=== PATIENT | female | born 1935 | race Caucasian/White ===

== ENCOUNTER → 2016-12-18 | Outpatient (CLI) | payer OTHER ==
[~2016-12-18] MED LIST: ASPIRIN81 MG PO; BETA PO; CARTIA XT120 MG PO; CIPROFLOXACIN500 MG PO; COLACE100 MG PO; DILTIAZEM 24HR360 MG PO; ELIQUIS5 M1 PO; LIPITOR10 MG PO; LISINOPRIL HCTZ1 TA1; LISINOPRIL20 MG PO; LOPRESSOR25 MG PO; LOPRESSOR50 M1 PO; LOPRESSOR50 MG PO; LYRICA200 M1 PO; LYRICA75 MG PO; MULTI PO; NORVASC10 MG PO; NOVOLIN 701 UNIT/0.0; NOVOLOG MI100 UNIT/2 SQ; PRAVACHOL20 MG PO; PRILOSEC20 M1 PO; SYNTHROID0.15 MG PO; SYNTHROID25 MCG PO; TENORMIN25 MG PO; ZOFRAN4 MG PO
== END | disposition home or self-care (01) ==
LOC: SDC 09:30 → CARD 09:30
DX: I08.3 Combined rheumatic disorders of mitral, aortic and tricuspid valves (principal); I48.91 Unspecified atrial fibrillation; I10 Essential (primary) hypertension

== ENCOUNTER → 2017-05-22 | Outpatient (CLI) | payer OTHER | END | disposition home or self-care (01) | LOC: RAD 14:24 | DX: M16.12 Unilateral primary osteoarthritis, left hip (principal) ==

== ENCOUNTER → 2017-07-31 | Outpatient (CLI) | payer OTHER | END | disposition home or self-care (01) | LOC: MRI 14:10 | DX: S72.8X2A Other fracture of left femur, initial encounter for closed fracture (principal); M70.62 Trochanteric bursitis, left hip; X58.XXXA Exposure to other specified factors, initial encounter; Y92.89 Other specified places as the place of occurrence of the external cause; Y93.89 Activity, other specified; Y99.8 Other external cause status ==

== ENCOUNTER 2018-06-08 10:03 | Emergency (ER) | payer OTHER ==
[~2018-06-08] VITALS: Wt 101.6 kg
[2018-06-08 10:15] VITALS: BP 138/80
[2018-06-08] MEDS ORDERED: NORCO 5-325 TA1 EACH PO (12:39)
== END 2018-06-08 13:35 | disposition home or self-care (01) ==
LOC: ED 10:03
DX: M16.12 Unilateral primary osteoarthritis, left hip (principal); E11.9 Type 2 diabetes mellitus without complications; I10 Essential (primary) hypertension; E03.9 Hypothyroidism, unspecified; I48.91 Unspecified atrial fibrillation; E66.9 Obesity, unspecified; Z88.8 Allergy status to other drugs, medicaments and biological substances; Z88.6 Allergy status to analgesic agent; Z88.1 Allergy status to other antibiotic agents; Z79.899 Other long term (current) drug therapy; Z79.84 Long term (current) use of oral hypoglycemic drugs; Z79.82 Long term (current) use of aspirin; Z90.710 Acquired absence of both cervix and uterus

== ENCOUNTER 2018-06-11 16:58 | Inpatient (IN) | payer OTHER ==
[~2018-06-11] VITALS: Ht 154.9 cm; Wt 104.4 kg
--- NOTE | ~2018-06-11 | PR ---
[place], [place] PROGRESS NOTE NAME: JOHAN REID UNIT #: [id number] ROOM: 509 DOCTOR: KEO SERVIN MD BIRTHDATE: [birth year] DOS: SUBJECTIVE: The patient is about the same, does not have any complaints. OBJECTIVE: VITAL SIGNS: Graphic trend shows blood pressure of 150/78, pulse of 90, respirations 18, temperature 97.8. LUNGS: Clear. HEART: Regular. ABDOMEN: Obese, soft. EXTREMITIES: Without any edema. ASSESSMENT AND PLAN: 1. Fall with possibility of left hip fracture, awaiting open reduction and internal fixation today. 2. Hypokalemia. Supplementation was given. No labs available this morning. 3. Benign hypertension, controlled. 4. Adult failure to thrive. We will arrange for transfer to rehab when the patient is stable. KEO SERVIN MD CM:PNTRANS [phone] KEO SERVIN MD 06/16/18 1456 interface
--- NOTE | ~2018-06-11 | WRIGHTHP ---
[place], [place] PATIENT HISTORY AND PHYSICAL EXAM NAME: JOHAN REID [facility] #: [id number] UNIT #: [id number] ROOM: 509 DOCTOR: KEO SERVIN MD BIRTHDATE: [birth year] DOS: 06/11/2018 HISTORY OF PRESENT ILLNESS: An 83-year-old who comes in with complaints of pain in the left hip area. The patient states about a year ago she had a similar problem after a fall. She had seen Dr. Bowen and was advised conservative regimen. She apparently did have a small fracture which she told would heal on its own and she has been doing fairly well after that and about 2 weeks ago, she fell again and has developed increasing pain, so she decided to present to the Dr. Bowen's office again. At this time, he was unable to figure out why she was having increased pain, sent to the Emergency Room where routine studies, which showed that she again had a hip fracture on a CT of the left hip, so the patient was admitted for further evaluation and possible surgery. She denies having any complaints other than left hip pain, especially when she moves. She denies having any chest pains or palpitations. Does not have any fever or chills. Does not have any abdominal pain, nausea, and emesis. PAST MEDICAL HISTORY: Significant for 1. History of fall about a year ago with possibility of a fracture. 2. Chronic atrial fibrillation, on anticoagulation. 3. Benign hypertension. 4. Mixed hyperlipidemia. 5. Type 2 diabetes mellitus, insulin-dependent. 6. Chronic kidney disease. 7. Coronary artery disease of the [place] coronaries. 8. Chronic low back pain. MEDICATIONS: That she is on are insulin 70/30, Eliquis 5 b.i.d., amlodipine 10 daily, atenolol 25 daily, Colace 100 daily, [place] 5 q. 8, levothyroxine 125 mcg daily, lisinopril 20 daily, omeprazole 20 daily, Pravachol 20 daily, Lyrica 200 b.i.d., NovoLog 70/30, 35 units subQ daily. SOCIAL HISTORY: Nonsmoker, does not use any alcohol. Lives at home alone. PHYSICAL EXAMINATION: GENERAL: She is awake and alert and oriented. VITAL SIGNS: Graphic trend shows that she is afebrile, pressure is 142/70, pulse of 76, respirations 18. LUNGS: Diminished breath sounds, clear. HEART: Regular. ABDOMEN: Obese. EXTREMITIES: Left hip range of motion was checked. There is some minimal discomfort in the hip area. ASSESSMENT AND PLAN: 1. The patient who presents with pain in the left hip area following a fracture. Left hip x-ray showed a possibility of a femoral neck fracture. Dr. Bishop has been consulted. The patient will be kept n.p.o. for possibility of a surgery. 2. Chronic atrial fibrillation, on long-term use of anticoagulants. Eliquis on hold, Lovenox to be started. [place], [place] PATIENT HISTORY AND PHYSICAL EXAM NAME: JOHAN REID UNIT #: [id number] ROOM: [facility] DOCTOR: KEO SERVIN MD BIRTHDATE: [birth year] 3. Benign hypertension, controlled. 4. Type 2 diabetes mellitus, insulin-dependent, reordered diet and coverage scale. KEO SERVIN MD CM:HISPHYS:PATIENT HISTORY AND PHYSICAL EXAMINATION [id number] KEO SERVIN MD 06/12/18 1117 interface
--- NOTE | ~2018-06-11 | PR ---
[place], [place] PROGRESS NOTE NAME: JOHAN REID UNIT #: [id number] ROOM: 509 DOCTOR: KEO SERVIN MD BIRTHDATE: [birth year] DOS: SUBJECTIVE: The patient is not having any complaints other than pain. Case management has started precertification for her rehabilitation. OBJECTIVE: VITAL SIGNS: Pressure is 137/70, pulse of 70, respirations 18, temperature 98.5. LUNGS: Clear. HEART: Regular. ABDOMEN: Soft. EXTREMITIES: Without any edema. ASSESSMENT AND PLAN: 1. Left hip fracture, status post open reduction and internal fixation. 2. Hypokalemia is corrected. 3. Adult failure to thrive, awaiting placement. KEO SERVIN MD CM:PNTRANS 8 10 KEO SERVIN MD 06/18/182111 interface
--- NOTE | ~2018-06-11 | PR ---
[place], [place] PROGRESS NOTE NAME: JOHAN REID UNIT #: [id number] ROOM: 509 DOCTOR: KEO SERVIN MD BIRTHDATE: [birth year] DOS: SUBJECTIVE: The patient is not having any complaints today other than her pain. OBJECTIVE: VITAL SIGNS: Graphic trend shows a pressure 143/71, pulse of 74, respirations 19, temperature 98.1. LUNGS: Clear. HEART: Regular. ABDOMEN: Obese, soft. EXTREMITIES: No edema. SCDs bilaterally. ASSESSMENT AND PLAN: 1. The patient with fall with hip fracture status post open reduction and internal fixation. 2. Adult failure to thrive. For placement to [facility], beds available and the plan is just to transfer her today. 3. Venous Doppler done, did not show any evidence of deep venous thrombosis. KEO SERVIN MD CM:PNTRANS [phone] 0 KEO SERVIN MD 06/20/18120 interface
--- NOTE | ~2018-06-11 | PR ---
[place], [place] PROGRESS NOTE NAME: JOHAN REID UNIT #: [id number] ROOM: 509 DOCTOR: KEO SERVIN MD BIRTHDATE: [birth year] DOS: 06/17/2018 SUBJECTIVE: The patient underwent surgery yesterday, had ORIF performed. The patient is not having any complaints other than pain. OBJECTIVE: VITAL SIGNS: Graphic trend shows pressure 129/78, pulse of 88, respirations 17, temperature 98.2. LUNGS: Clear. HEART: Regular. ABDOMEN: Obese. EXTREMITIES: Without any edema. Left hip site intact. ASSESSMENT AND PLAN: 1. Subcapital femoral neck fracture of the left hip, status post open reduction internal fixation. The patient is stable. 2. Hypokalemia. Supplementation is ordered. 3. Chronic atrial fibrillation, restart Eliquis. 4. Adult failure to thrive, to go to [facility] went out to [facility]. KEO SERVIN MD CM:PNTRANS [phone] KEO SERVIN MD 06/18/18 0120 interface
--- NOTE | ~2018-06-11 | DS ---
[place], [place] DISCHARGE SUMMARY NAME: JOHAN REID UNIT #: [id number] ROOM: 509 DOCTOR: KEO SERVIN MD BIRTHDATE: [birth year] DOS: 06/19/2018 DIAGNOSES: 1. Fall with hip pain with hip fracture status post open reduction and internal fixation. 2. Benign hypertension. 3. Chronic back pain. 4. Chronic atrial fibrillation, on long-term use of anticoagulants. 5. Multiple falls with ambulatory dysfunction. 6. Mixed hyperlipidemia. 7. Type 2 diabetes mellitus, insulin-dependent. 8. Chronic kidney disease. 9. Coronary artery disease of [place] coronaries. DISCHARGE MEDICATIONS: [place] 5/325 mg q. 8 hours p.r.n., amlodipine 10 daily, omeprazole 20 daily, Eliquis 5 mg b.i.d., levothyroxine 125 mcg daily, lisinopril 20 daily, Lyrica 200 b.i.d., Pravachol 20 daily, Colace 100 daily, NovoLog 70/30 75 units daily, atenolol 25 daily, amlodipine 10 daily. HOSPITAL COURSE: This patient is 83 years old, had a fall at home, developed hip pain, was seen by her home health specialist, Dr. Bowen who sent her to the Emergency Room. The patient had a similar fall a year ago and was thought to have a slight bone bruise of the left hip and was treated conservatively. This time, CT showed a possibility of hip fracture. An MRI did not show an actual hip fracture, but there was a lot of edema around the site. Dr. Bishop was consulted. She took the patient for surgery because of continued pain in her left hip site, the possibility of instability was raised. ORIF was performed and after that the patient has remained stable. She is not having any new complaints. The plan is to discharge her to [facility] for continued therapy. DISCHARGE MEDICATIONS: See above. DIET: ADA 1800. PT/OT to be consulted. Blood sugars to be checked daily. [place], [place] DISCHARGE SUMMARY NAME: JOHAN REID UNIT #: [id number] ROOM: 509 DOCTOR: KEO SERVIN MD BIRTHDATE: [birth year] KEO SERVIN MD CM:DEBBIE 9 5 KEO SERVIN MD 07/06/18 0930 interface
--- NOTE | ~2018-06-11 | PR ---
[place], [place] PROGRESS NOTE NAME: [facility]ID [id number] UNIT #: [id number] ROOM: 509 DOCTOR: KEO SERVIN MD BIRTHDATE: [birth year] DOS: 06/15/2018 SUBJECTIVE: The patient has left hip pain, but otherwise does not have any complaints. OBJECTIVE: VITAL SIGNS: Blood pressure is 124/79, pulse is 78, respirations 20, and temperature 97.4. LUNGS: Clear. HEART: Irregular heart rate in the 70s. ABDOMEN: Obese. EXTREMITIES: Without any edema. Some tenderness in the left hip area. LABORATORY DATA: BMP: Glucose 168, BUN 16, creatinine 0.73. Sodium 137, potassium 3.2, chloride 101, bicarbonate 28. WBC count is 9.3, hemoglobin 12.0, and hematocrit 37.5. ASSESSMENT AND PLAN: 1. The patient is status post fall with left hip pain. Dr. Bishop has advised to hold the Eliquis in the possibility of surgery is being addressed this morning. 2. Chronic atrial fibrillation on Eliquis, which is on hold. 3. Benign hypertension, controlled. 4. Hypokalemia. Supplementation was ordered. 5. Adult failure to thrive. We will hold off on transfer to [facility] because we are still finalizing her treatment plan here. KEO SERVIN MD CM:PNTRANS 0 KEO SERVIN MD 06/15/1841 interface
--- NOTE | ~2018-06-11 | O ---
[place], [place] OPERATIVE NOTE NAME: [facility]ID [id number] UNIT #: [id number] ROOM: 509 DOCTOR: SILVIA BISHOP DO BIRTHDATE: [birth year] DOS: 06/16/2018 PREOPERATIVE DIAGNOSIS: Left hip subcapital fracture. POSTOPERATIVE DIAGNOSIS: Left hip subcapital fracture. OPERATIVE PROCEDURE: Left hip in situ fixation of subcapital fracture with 3 cannulated screws. SURGEON: Silvia Bishop DO. ASSOCIATE PROFESSOR OF KINESIOLOGY: Nicolle. ANESTHESIA: ELISA Mariee, Spinal. INDICATIONS: The patient is an 83-year-old female with a history of a stress fracture of the left hip, treated elsewhere approximately 1 year ago. The patient had a fall several weeks ago and has had progressive pain at the left hip with internal and external rotation, decreased ability to ambulate. Radiographic studies were inconclusive. The risks and benefits of the procedure were explained to the patient preoperatively. Preoperative labs and x-rays were obtained as well as medical optimization. PROCEDURE IN DETAIL: The left hip was marked in the holding room. The patient was brought to the operative suite. Spinal anesthetic was performed by Anesthesia. The patient was placed supine on the fracture table. The right lower extremity was flexed and externally rotated. Left lower extremity was extended without significant traction. C-arm was utilized to evaluate the fracture site. The patient received Ancef 2 grams IV piggyback. The timeout was performed. The left lower extremity was prepped and draped in the usual orthopedic fashion. C-arm was utilized to identify the starting point just distal to the greater trochanter. The area was injected with Marcaine 0.5% with epinephrine. Incision was made sharply with a scalpel. Subcutaneous tissue was spread down to the level of the fascia. Fascia was divided bluntly with a hemostat. Three partially threaded K-wires were placed from lateral to medial through the femoral neck and into the head of the femur. Positioning was evaluated under C-arm in multiple planes. When this was found to be adequate, the pins were measured. They were overdrilled with the cannulated drill. A single partially threaded 7.3 mm screw was placed over each K-wire and advanced under C-arm guidance manually. When the positioning was found to be adequate by C-arm in multiple planes, the partially threaded K-wires were removed. The area was again evaluated by C-arm. The wound was copiously irrigated with normal saline. The wound was closed in a layered fashion with 0 Vicryl, followed by 2-0 Vicryl, followed by skin brian. The incision was injected with Marcaine 0.5% with epinephrine. The dressing was applied, Xeroform, 4 x 4s and a Tegaderm dressing. The patient was returned to supine position. The patient was taken to the recovery room in satisfactory condition. [place], [place] OPERATIVE NOTE NAME: JOHAN REID UNIT #: [id number] ROOM: [facility] DOCTOR: SILVIA BISHOP DO BIRTHDATE: [birth year] Sponge and needle count correct. ESTIMATED BLOOD LOSS: 5 mL. SPECIMENS: None. DRAINS: None. PACKING: None. COMPLICATIONS: None. FINDINGS: Left subcapital femoral neck fracture. SILVIA BISHOP DO CM:OPRECORD:OPERATIVE NOTE [phone] SILVIA BISHOP DO 06/16/181934 interface
--- NOTE | ~2018-06-11 | PR ---
[place], [place] PROGRESS NOTE NAME: JOHAN REID UNIT #: [id number] ROOM: 509 DOCTOR: KEO SERVIN MD BIRTHDATE: [birth year] DOS: 06/14/2018 SUBJECTIVE: The patient is resting comfortably, does not have any new complaints. She is slightly constipated. OBJECTIVE: VITAL SIGNS: Blood pressure is 153/81, pulse of 88, respirations 18, temperature 98.1. LUNGS: Clear. HEART: Irregular. ABDOMEN: Obese. EXTREMITIES: No evidence of DVT. LABORATORY DATA: Blood sugar was 110. ASSESSMENT AND PLAN: 1. Fall with ambulatory dysfunction, adult failure to thrive, awaiting placement. 2. Old left hip fracture. Conservative regimen with pain control achieved. 3. Type 2 diabetes mellitus, controlled. The plan is hopefully to discharge her to home tomorrow. We will discontinue catheter. KEO SERVIN MD CM:PNTRANS [phone] KEO SERVIN MD 06/14/18 1509 interface
--- NOTE | ~2018-06-11 | PR ---
[place], [place] PROGRESS NOTE [id number] #: [id number] ROOM: 509 DOCTOR: KEO SERVIN MD BIRTHDATE: [birth year] DOS: 06/13/2018 SUBJECTIVE: The patient is feeling better, does not have any new complaints other than discomfort in the left hip. MRI was negative, did not show an acute fracture but possibility of old fracture. The patient was started on PT. Did ambulate with therapy this morning. OBJECTIVE: VITAL SIGNS: Pressure is 134/90, pulse of 80, respirations 20, temperature 97.8. LUNGS: Clear. HEART: Regular. ABDOMEN: Obese, soft, nontender. EXTREMITIES: Without any edema. LABORATORY DATA: Blood sugar this morning was 167. ASSESSMENT AND PLAN: 1. The patient complains of the left hip pain after a fall and ambulatory dysfunction and adult failure to thrive. The patient will need placement. Social Service will be consulted for short-term placement to rehabilitation. 2. An old hip fracture with some translucency on the MRI, but no acute fracture was noted. The patient does not need any surgery, so we will restart her home anticoagulation. 3. Chronic atrial fibrillation, controlled on long-term anticoagulants as well as hypertensives. 4. Type 2 diabetes mellitus. Blood sugar is controlled. KEO SERVIN MD CM:PNTRANS [id number] KEO SERVIN MD 07/06/18 0908 interface
--- NOTE | ~2018-06-11 | EKG ---
[place], [place] ELECTROCARDIOGRAM REPORT NAME: JOHAN REID UNIT #: [id number] ROOM: 509 DOCTOR: CE DRAFT REPORT BIRTHDATE: [birth year] [facility] Test Date: 2018-06-11 Test Time: 20:00:05 Pat Name: JOHAN REID Department: Room: 509 Gender: F Phlebotomist Associate: Wandy Mathew : 1935 Requested By: AIMEE OLIVER PA-C Order Number: [id number] Reading MD: Den Gonzalez MD Measurements Intervals Boley Rate: 79 P: TN: QRS: 51 QRSD: 79 T: 42 QT: 360 QTc: 413 Interpretive Statements Atrial fibrillation Poor precordial R-wave progression Electronically Signed On 06-12-2018 13:56:55 PDT by Den Gonzalez MD CM:EKGRPT:ELECTROCARDIOGRAM REPORT 99 [facility]6 AIMEE OLIVER PA-C EPIPHANY DRAFT REPORT AIMEE OLIVER PA-C
[~2018-06-11 16:58] MED LIST changes: +NORCO 5-325 TA1 EACH PO
[2018-06-11 16:59] VITALS: BP 138/80
[2018-06-11 17:58] LABS: BASO # 0.1 10*3/uL (0.0-0.1); BASO % 1.1 % (0.0-1.0); EOS # 0.3 10*3/uL (0.0-0.4); EOS % 3.8 % (1.0-4.0); HEMATOCRIT 38.4 % (37.0-47.0); HEMOGLOBIN 12.6 g/dl (12.0-16.0); LYMPH % 25.6 % (27.0-41.0); MEAN CELL VOLUME 93.2 fl (81.0-99.0); MEAN CORPUSCULAR HGB 30.6 pg (27.0-31.0); MEAN CORPUSCULAR HGB CONC 32.8 g/dl (33.0-37.0); MEAN PLATELET VOLUME 10.8 fl (9.6-12.3); MONO # 0.8 10*3/uL (0.1-1.0); MONO % 9.4 % (3.0-9.0); NEUT # 4.8 10*3/uL (2.3-7.9); NEUT % 59.8 % (47.0-73.0); PLATELET COUNT AUTOMATED 231 10*3/uL (130-400); RED BLOOD COUNT 4.12 10*6/uL (4.10-5.10); RED CELL DISTRI WIDTH 14.1 % (0-14.5); WHITE BLOOD COUNT 7.9 10*3/uL (4.8-10.8)
[2018-06-11 18:13] LABS: ACT PARTIAL THROMBO TIME 31.5 SECONDS (20.8-31.5)
[2018-06-11 18:36] LABS: ALBUMIN 3.9 gm/dl (3.1-4.5); ALKALINE PHOSPHATASE 60 U/L (45-117); BUN 24 mg/dl (7-24); CHLORIDE 108 mmol/L (98-107); CREATININE 0.94 mg/dL (0.55-1.02); POTASSIUM 3.7 mmol/L (3.5-5.1); SGOT/AST 22 IU/L (3-35); SGPT/ALT 18 U/L (12-78); SODIUM 140 mmol/L (136-145); TOTAL PROTEIN 7.3 gm/dL (6.4-8.2)
[2018-06-11 19:40] VITALS: BP 146/77
[2018-06-11 21:00] VITALS: BP 148/78
[2018-06-11 21:02] VITALS: BP 148/76
[2018-06-12] VITALS: BP 173/98
[2018-06-12 06:30] LABS: BASO # 0.1 10*3/uL (0.0-0.1); EOS # 0.3 10*3/uL (0.0-0.4); EOS % 4.9 % (1.0-4.0); HEMATOCRIT 41.1 % (37.0-47.0); HEMOGLOBIN 13.1 g/dl (12.0-16.0); MEAN CELL VOLUME 95.1 fl (81.0-99.0); MEAN CORPUSCULAR HGB 30.3 pg (27.0-31.0); MEAN CORPUSCULAR HGB CONC 31.9 g/dl (33.0-37.0); MEAN PLATELET VOLUME 11.2 fl (9.6-12.3); MONO # 0.7 10*3/uL (0.1-1.0); MONO % 10.3 % (3.0-9.0); NEUT # 3.7 10*3/uL (2.3-7.9); NEUT % 54.5 % (47.0-73.0); PLATELET COUNT AUTOMATED 208 10*3/uL (130-400); RED BLOOD COUNT 4.32 10*6/uL (4.10-5.10); RED CELL DISTRI WIDTH 14.2 % (0-14.5); WHITE BLOOD COUNT 6.8 10*3/uL (4.8-10.8)
[2018-06-12 08:00] VITALS: BP 168/86
[2018-06-12 12:00] VITALS: BP 153/76
[2018-06-12 16:00] VITALS: BP 116/45
[2018-06-12 20:00] VITALS: BP 112/60
[2018-06-13] VITALS: BP 141/77
[2018-06-13 08:00] VITALS: BP 134/90
[2018-06-13 12:00] VITALS: BP 127/77
[2018-06-13 16:00] VITALS: BP 139/73
[2018-06-13 20:00] VITALS: BP 147/58
[2018-06-14] VITALS: BP 133/79
[2018-06-14 08:00] VITALS: BP 153/81
[2018-06-14 12:00] VITALS: BP 115/51
[2018-06-14 16:00] VITALS: BP 144/71
[2018-06-14 20:00] VITALS: BP 153/74
[2018-06-15] VITALS: BP 143/58
[2018-06-15 06:10] LABS: BUN 16 mg/dl (7-24); CHLORIDE 101 mmol/L (98-107); CREATININE 0.73 mg/dL (0.55-1.02); POTASSIUM 3.2 mmol/L (3.5-5.1); SODIUM 137 mmol/L (136-145)
[2018-06-15 06:11] LABS: BASO # 0.1 10*3/uL (0.0-0.1); BASO % 0.8 % (0.0-1.0); EOS # 0.2 10*3/uL (0.0-0.4); EOS % 2.4 % (1.0-4.0); HEMATOCRIT 37.5 % (37.0-47.0); LYMPH # 1.8 10*3/uL (1.3-4.4); LYMPH % 19.6 % (27.0-41.0); MEAN CELL VOLUME 93.5 fl (81.0-99.0); MEAN CORPUSCULAR HGB 29.9 pg (27.0-31.0); MEAN PLATELET VOLUME 11.1 fl (9.6-12.3); MONO # 1.3 10*3/uL (0.1-1.0); MONO % 13.8 % (3.0-9.0); NEUT # 5.9 10*3/uL (2.3-7.9); NEUT % 63.2 % (47.0-73.0); PLATELET COUNT AUTOMATED 211 10*3/uL (130-400); RED BLOOD COUNT 4.01 10*6/uL (4.10-5.10); RED CELL DISTRI WIDTH 13.5 % (0-14.5); WHITE BLOOD COUNT 9.3 10*3/uL (4.8-10.8)
[2018-06-15 08:00] VITALS: BP 124/79
[2018-06-15 12:00] VITALS: BP 123/48
[2018-06-15 16:00] VITALS: BP 132/49
[2018-06-15 20:00] VITALS: BP 142/75
[2018-06-16] VITALS (11 sets, daily range): BP systolic 97–152; BP diastolic 38–88
[2018-06-17] VITALS: BP 149/50
[2018-06-17 07:02] LABS: BASO # 0.1 10*3/uL (0.0-0.1); BASO % 0.9 % (0.0-1.0); EOS # 0.2 10*3/uL (0.0-0.4); EOS % 1.8 % (1.0-4.0); HEMATOCRIT 37.1 % (37.0-47.0); HEMOGLOBIN 12.1 g/dl (12.0-16.0); LYMPH # 0.9 10*3/uL (1.3-4.4); LYMPH % 10.3 % (27.0-41.0); MEAN CELL VOLUME 91.2 fl (81.0-99.0); MEAN CORPUSCULAR HGB 29.7 pg (27.0-31.0); MEAN CORPUSCULAR HGB CONC 32.6 g/dl (33.0-37.0); MEAN PLATELET VOLUME 10.7 fl (9.6-12.3); MONO # 0.9 10*3/uL (0.1-1.0); MONO % 9.8 % (3.0-9.0); PLATELET COUNT AUTOMATED 244 10*3/uL (130-400); RED BLOOD COUNT 4.07 10*6/uL (4.10-5.10); WHITE BLOOD COUNT 9.1 10*3/uL (4.8-10.8)
[2018-06-17 07:14] LABS: BUN 11 mg/dl (7-24); CHLORIDE 101 mmol/L (98-107); CREATININE 0.66 mg/dL (0.55-1.02); POTASSIUM 3.4 mmol/L (3.5-5.1); SODIUM 136 mmol/L (136-145)
[2018-06-17 08:00] VITALS: BP 129/78
[2018-06-17 12:00] VITALS: BP 137/76
[2018-06-17 16:00] VITALS: BP 158/90
[2018-06-17 20:00] VITALS: BP 131/65
[2018-06-18] VITALS: BP 130/66
[2018-06-18 06:50] LABS: BUN 15 mg/dl (7-24); CHLORIDE 104 mmol/L (98-107); CREATININE 0.65 mg/dL (0.55-1.02); POTASSIUM 3.7 mmol/L (3.5-5.1); SODIUM 138 mmol/L (136-145)
[2018-06-18 08:00] VITALS: BP 137/72
[2018-06-18 12:00] VITALS: BP 125/70; BP 133/65
[2018-06-18 16:00] VITALS: BP 136/76
[2018-06-18 20:00] VITALS: BP 127/64
[2018-06-19] VITALS: BP 118/63
[2018-06-19 08:00] VITALS: BP 143/71
[2018-06-19 12:00] VITALS: BP 120/44
== END 2018-06-19 15:45 | disposition other institution (70) | DRG 481 ==
LOC: ED 16:58 → 5E 20:23 → EDHOLD 20:23 → 5E 20:34
PROVIDERS: Internal Medicine; Physician Assistant
PROC: 0QH704Z Insertion of Internal Fixation Device into Left Upper Femur, Open Approach (ICD-10-PCS; principal; 2018-06-16)
DX: S72.012A Unspecified intracapsular fracture of left femur, initial encounter for closed fracture (principal); Z68.41 Body mass index [BMI] 40.0-44.9, adult; I48.2 Chronic atrial fibrillation; G89.29 Other chronic pain; M54.9 Dorsalgia, unspecified; I25.10 Atherosclerotic heart disease of native coronary artery without angina pectoris; E78.2 Mixed hyperlipidemia; E87.6 Hypokalemia; R62.7 Adult failure to thrive; E66.9 Obesity, unspecified; Z96.652 Presence of left artificial knee joint; I12.9 Hypertensive chronic kidney disease with stage 1 through stage 4 chronic kidney disease, or unspecified chronic kidney disease; E03.9 Hypothyroidism, unspecified; E11.22 Type 2 diabetes mellitus with diabetic chronic kidney disease; W18.39XA Other fall on same level, initial encounter; N18.9 Chronic kidney disease, unspecified; Y93.89 Activity, other specified; Y92.89 Other specified places as the place of occurrence of the external cause; Z79.01 Long term (current) use of anticoagulants; Z88.1 Allergy status to other antibiotic agents; Z88.8 Allergy status to other drugs, medicaments and biological substances; Z88.6 Allergy status to analgesic agent; Z87.01 Personal history of pneumonia (recurrent); Z90.710 Acquired absence of both cervix and uterus; Z83.3 Family history of diabetes mellitus; Z82.49 Family history of ischemic heart disease and other diseases of the circulatory system; Z91.81 History of falling; Y99.8 Other external cause status; Z79.899 Other long term (current) drug therapy; Z79.82 Long term (current) use of aspirin

== ENCOUNTER → 2018-06-29 | Outpatient (CLI) | payer OTHER | LOC: ORTHO 00:01 | DX: S72.002D Fracture of unspecified part of neck of left femur, subsequent encounter for closed fracture with routine healing (principal); X58.XXXD Exposure to other specified factors, subsequent encounter ==

== ENCOUNTER → 2018-08-12 | Outpatient (CLI) | payer OTHER | END | disposition home or self-care (01) | LOC: ORTHO 00:51 | DX: S72.002D Fracture of unspecified part of neck of left femur, subsequent encounter for closed fracture with routine healing (principal); X58.XXXD Exposure to other specified factors, subsequent encounter ==

== ENCOUNTER → 2018-09-17 | Outpatient (CLI) | payer OTHER | END | disposition home or self-care (01) | LOC: RAD 13:11 | DX: S72.002D Fracture of unspecified part of neck of left femur, subsequent encounter for closed fracture with routine healing (principal); X58.XXXD Exposure to other specified factors, subsequent encounter ==

== ENCOUNTER → 2018-10-02 | Outpatient (CLI) | payer OTHER | LOC: ORTHO 01:41 | DX: S72.002D Fracture of unspecified part of neck of left femur, subsequent encounter for closed fracture with routine healing (principal); X58.XXXD Exposure to other specified factors, subsequent encounter ==

== ENCOUNTER → 2018-12-07 | Outpatient (CLI) | payer OTHER | END | disposition home or self-care (01) | LOC: ORTHO 01:02 | DX: S72.002K Fracture of unspecified part of neck of left femur, subsequent encounter for closed fracture with nonunion (principal); X58.XXXD Exposure to other specified factors, subsequent encounter ==

== ENCOUNTER → 2019-01-27 | Outpatient (CLI) | payer OTHER | END | disposition home or self-care (01) | LOC: ORTHO 00:51 | DX: S72.002D Fracture of unspecified part of neck of left femur, subsequent encounter for closed fracture with routine healing (principal); X58.XXXD Exposure to other specified factors, subsequent encounter ==

== ENCOUNTER → 2019-03-22 | Outpatient (CLI) | payer OTHER | END | disposition home or self-care (01) | LOC: ORTHO 01:37 | DX: S72.002D Fracture of unspecified part of neck of left femur, subsequent encounter for closed fracture with routine healing (principal); X58.XXXD Exposure to other specified factors, subsequent encounter ==

== ENCOUNTER → 2019-04-19 | Outpatient (CLI) | payer OTHER ==
[~2019-04-19] MED LIST changes: +CELECOXIB200 M1 PO; +DULCOLAX STOOL100 M1 PO; +ENOXAPARIN30 MG/0.2 SC; +Ferrex 150150 MG PO; +HUMULIN 70/30 PE3 ML SQ; +HYDROCODONE-AC1 EAC1 PO; +LEVOTHYROXINE125 MCG PO; +MIRALAX17 GM PO; +OMEPPI 40 MG-11 EACH PO; +REGLAN5 MG PO; +TENORMIN25 M1 PO; +VITAMIN D31000 UNIT PO; +VITAMIN D32000 UNIT PO
[2019-04-19 09:50] LABS: BASO # 0.1 10*3/uL (0.0-0.1); BASO % 1.1 % (0.0-1.0); EOS # 0.2 10*3/uL (0.0-0.4); EOS % 2.8 % (1.0-4.0); HEMATOCRIT 37.4 % (37.0-47.0); HEMOGLOBIN 12.1 g/dl (12.0-16.0); LYMPH # 1.9 10*3/uL (1.3-4.4); LYMPH % 24.4 % (27.0-41.0); MEAN CELL VOLUME 93.5 fl (81.0-99.0); MEAN CORPUSCULAR HGB 30.3 pg (27.0-31.0); MEAN CORPUSCULAR HGB CONC 32.4 g/dl (33.0-37.0); MEAN PLATELET VOLUME 11.5 fl (9.6-12.3); MONO # 0.8 10*3/uL (0.1-1.0); MONO % 10.6 % (3.0-9.0); NEUT # 4.8 10*3/uL (2.3-7.9); NEUT % 60.8 % (47.0-73.0); PLATELET COUNT AUTOMATED 241 10*3/uL (130-400); RED CELL DISTRI WIDTH 14.3 % (0-14.5); WHITE BLOOD COUNT 7.9 10*3/uL (4.8-10.8)
[2019-04-19 10:19] LABS: CHLORIDE 106 mmol/L (98-107); POTASSIUM 4.3 mmol/L (3.5-5.1); SODIUM 138 mmol/L (136-145)
[2019-04-19 10:29] LABS: ALBUMIN 3.7 gm/dl (3.1-4.5); ALKALINE PHOSPHATASE 70 U/L (45-117); BUN 21 mg/dl (7-24); CHOLESTEROL 156 mg/dL (<200); CREATININE 0.92 mg/dL (0.55-1.02); FREE T4 1.27 ng/dl (0.76-1.46); HDL CHOLESTEROL 70 mg/dl (40-60); LDL CHOLESTEROL 62 mg/dL (9-159); SGOT/AST 21 IU/L (3-35); SGPT/ALT 17 U/L (12-78); THYROID STIM HORMONE (HS) 0.448 uIU/ml (0.358-4.75); TOTAL PROTEIN 7.3 gm/dL (6.4-8.2); TRIGLYCERIDES 119 mg/dl (<150); VLDL CHOLESTEROL 24 mg/dL (6-40)
[2019-04-19 11:04] LABS: VITAMIN D, 25-HYDROXY 34.3 ng/mL (30-100)
== END | disposition home or self-care (01) ==
LOC: LAB 09:21
PROVIDERS: Internal Medicine
DX: E11.9 Type 2 diabetes mellitus without complications (principal); E03.9 Hypothyroidism, unspecified; E55.9 Vitamin D deficiency, unspecified; E78.2 Mixed hyperlipidemia; D51.9 Vitamin B12 deficiency anemia, unspecified; D52.9 Folate deficiency anemia, unspecified

== ENCOUNTER → 2019-05-12 | Outpatient (CLI) | payer OTHER | END | disposition home or self-care (01) | LOC: ORTHO 00:51 | DX: M47.816 Spondylosis without myelopathy or radiculopathy, lumbar region (principal) ==

== ENCOUNTER → 2019-06-09 | Outpatient (CLI) | payer OTHER ==
[~2019-06-09] MED LIST changes: -DULCOLAX STOOL100 M1 PO; -ENOXAPARIN30 MG/0.2 SC; -Ferrex 150150 MG PO; -HUMULIN 70/30 PE3 ML SQ; -MIRALAX17 GM PO; -REGLAN5 MG PO; -TENORMIN25 M1 PO; -VITAMIN D31000 UNIT PO
[2019-06-09 13:50] LABS: BASO # 0.1 10*3/uL (0.0-0.1); BASO % 0.6 % (0.0-1.0); EOS # 0.3 10*3/uL (0.0-0.4); HEMATOCRIT 41.7 % (37.0-47.0); HEMOGLOBIN 13.2 g/dl (12.0-16.0); LYMPH # 1.7 10*3/uL (1.3-4.4); LYMPH % 19.6 % (27.0-41.0); MEAN CELL VOLUME 95.4 fl (81.0-99.0); MEAN CORPUSCULAR HGB 30.2 pg (27.0-31.0); MEAN CORPUSCULAR HGB CONC 31.7 g/dl (33.0-37.0); MEAN PLATELET VOLUME 11.4 fl (9.6-12.3); MONO # 0.8 10*3/uL (0.1-1.0); MONO % 9.4 % (3.0-9.0); NEUT # 5.8 10*3/uL (2.3-7.9); NEUT % 67.1 % (47.0-73.0); PLATELET COUNT AUTOMATED 239 10*3/uL (130-400); RED BLOOD COUNT 4.37 10*6/uL (4.10-5.10); RED CELL DISTRI WIDTH 13.3 % (0-14.5); WHITE BLOOD COUNT 8.6 10*3/uL (4.8-10.8)
[2019-06-09 14:15] LABS: ALBUMIN 3.9 gm/dl (3.1-4.5); ALKALINE PHOSPHATASE 73 U/L (45-117); BUN 21 mg/dl (7-24); CHLORIDE 104 mmol/L (98-107); SGOT/AST 21 IU/L (3-35); SGPT/ALT 20 U/L (12-78); SODIUM 141 mmol/L (136-145); TOTAL PROTEIN 7.6 gm/dL (6.4-8.2)
== END | disposition home or self-care (01) ==
LOC: LAB 11:50
PROVIDERS: Orthopaedic Surgery
DX: M16.12 Unilateral primary osteoarthritis, left hip (principal); E55.9 Vitamin D deficiency, unspecified

== ENCOUNTER → 2019-06-10 | Outpatient (CLI) | payer OTHER ==
[2019-06-10 16:24] LABS: BILIRUBIN NEGATIVE (NEGATIVE); BLOOD TRACE-INTACT (NEGATIVE); CLARITY SL CLOUDY (CLEAR); COLOR YELLOW (YELLOW); GLUCOSE NEGATIVE (NEGATIVE); KETONE NEGATIVE (NEGATIVE); LEUKO ESTERASE 3+ (NEGATIVE); NITRITE NEGATIVE (NEGATIVE); UROBILINOGEN 0.2 E.U./dl (0.2-1.0)
[2019-06-10 17:31] LABS: BACTERIA 2+; EPITHELIAL CELLS 0-2; WBC TNTC wbc/hpf (0-5)
== END | disposition home or self-care (01) ==
LOC: LAB 13:43
PROVIDERS: Orthopaedic Surgery
DX: M16.12 Unilateral primary osteoarthritis, left hip (principal); Z79.899 Other long term (current) drug therapy

== ENCOUNTER → 2019-06-21 | Outpatient (CLI) | payer OTHER ==
[2019-06-21 09:43] LABS: BILIRUBIN NEGATIVE (NEGATIVE); BLOOD NEGATIVE (NEGATIVE); CLARITY SL CLOUDY (CLEAR); COLOR YELLOW (YELLOW); GLUCOSE NEGATIVE (NEGATIVE); KETONE NEGATIVE (NEGATIVE); LEUKO ESTERASE NEGATIVE (NEGATIVE); NITRITE NEGATIVE (NEGATIVE); UROBILINOGEN 0.2 E.U./dl (0.2-1.0)
[2019-06-21 10:41] LABS: BACTERIA TRACE; CALCIUM OXALATE CRYSTALS 1+
== END | disposition home or self-care (01) ==
LOC: LAB 08:13
PROVIDERS: Orthopaedic Surgery
DX: R30.0 Dysuria (principal)

== ENCOUNTER 2019-06-22 00:38 | Inpatient (IN) | payer OTHER ==
[2019-06-09 14:00] VITALS: BP 150/73
[2019-06-17 17:25] VITALS: BP 143/98
[2019-06-22] VITALS (10 sets, daily range): BP systolic 114–189; BP diastolic 57–98
[~2019-06-22] VITALS: Ht 155 cm; Wt 108.9 kg
--- NOTE | ~2019-06-22 | O ---
[place], [place] OPERATIVE NOTE NAME: [facility]ID [id number] #: [id number] ROOM: 520 DOCTOR: SILVIA BISHOP DO BIRTHDATE: [birth year] DOS: 06/22/2019 PREOPERATIVE DIAGNOSIS: Painful nonunion left femoral neck. POSTOPERATIVE DIAGNOSIS: Painful nonunion left femoral neck. OPERATIVE PROCEDURE: Removal of painful hardware. CULTURES: Biopsy and femoral hemiarthroplasty. SURGEON: Silvia Bishop DO. ASSISTANTS: Lisa Natarajan Ash. ANESTHESIA: ELISA Mercado. INDICATIONS: The patient is an 84-year-old female who suffered what appeared to be a stress fracture of the left femoral neck approximately 1 year ago. The patient had continued pain in the left hip and failed conservative treatment including limited weightbearing and bone stimulator. The patient was evaluated multiple times for hip pain as well as lumbar pain. The risks and benefits of the procedure were explained to the patient preoperatively. Preoperative labs and x-rays were obtained. The left hip was marked in the holding room. The patient was brought to the operative suite. Spinal anesthetic was performed by Anesthesia. The patient was placed in a right lateral decubitus position with the left lower extremity superior and positioned with the [place] device. All bony prominences were padded. Timeout was performed. The patient received Ancef 2 grams IV piggyback. Left lower extremity was prepped and draped in the usual orthopedic fashion. The patient was noted to be obese and required some excessive time and positioning. The incision was marked as a posterior or southern incision with the marking pen. This was injected with Marcaine 0.5% with epinephrine. The posterior incision was made sharply with a scalpel. Subcutaneous tissue was spread down to the level of the gluteus miguel. There was noted to be significant adipose density as well as some calcifications within the adipose tissue. These calcifications were removed and sent to the lab as a separate specimen. The adipose tissue was quite thick until we reached the gluteus miguel. The greater trochanter was identified and followed distally. There were 3 cannulated screws distal to the greater trochanter. These were palpated and cleared from soft tissue using an elevator. The K-wire was used to enter each screw and they were removed by hand. The final screw was noted to have some drainage, which appeared to have particulate matter versus purulence. This was cultured within the screw hole. The area was copiously irrigated with normal saline. The short external rotators were identified and the piriformis was tagged with a suture. These were released at the level of their insertion on the greater trochanter and retracted posteriorly over the sciatic nerve. The capsule was identified and evaluated. A culture was obtained from within the capsule. [place], [place] OPERATIVE NOTE NAME: JOHAN REID UNIT #: [id number] ROOM: [facility] DOCTOR: SILVIA BISHOP DO BIRTHDATE: [birth year] The calcar cut was made using an oscillating saw. The femoral head was removed using a large Steinmann pin. The neck cut was freshened and lined with the guide. A box osteotome was used to lateralize the entry point in the femoral shaft. This was followed by a straight awl and a lateral rasp. Cultures were obtained from within the medullary canal as well. The small starter or chili pepper broach was utilized followed by a size 8 broach and increased to a size 11 broach with attention to the anteversion. Multiple size head and neck trials were utilized and a high offset 5 mm head with a 44 mm outer diameter was found to be the best reduction with flexion to 90, internal and external rotation and shucking. All found to be appropriate. There was noted to be a small avulsion fracture approximately 2 cm from the proximal greater trochanter. The majority of the gluteus attachment and abductors appeared to be intact. The area was copiously irrigated with the pulse lavage. The Corail cementless stem size 11 high offset was pressfit into place. The Articul/tripp femoral head +5 mm and the bipolar head, 44 mm were cold welded into place. The fit and fill were found to be adequate. The femoral head was reduced into the acetabulum. Range of motion was again repeated in flexion, extension, internal and external rotation and noted to have good motion and stability. The area was again irrigated and the avulsion fracture from the greater trochanter was attached utilizing #5 [place] in a [id number] fashion. The piriformis was returned to its insertion and repaired with the 5-0 [place]. The short external rotators were repaired with 0 Vicryl. The gluteus fascia was repaired with 0 Vicryl and the adipose layer repaired with 0 Vicryl followed by 2-0 Vicryl in a layered fashion. The skin closure was completed with brian. Incision was injected with Marcaine 0.5% with epinephrine. The dressing was applied with Xeroform, 4 x 4s, ABD pads and Tegaderm. The abduction pillow was put into place. The patient was returned to a supine position. The patient was placed on the hospital bed and taken to the recovery room in satisfactory condition. Sponge and needle count correct. ESTIMATED BLOOD LOSS: 300 mL. SPECIMENS: Femoral head and portion of the neck, calcified deposits within the adipose layer. Gram stain, culture and sensitivity from multiple areas about the proximal femur and hip. DRAINS: None. PACKING: None. COMPLICATIONS: Avulsion of the proximal greater trochanter. IMPLANTS: 1. DePuy Corail hip system, cementless femoral stem FRANCO coated size 11 with a high offset. [place], [place] OPERATIVE NOTE NAME: JOHAN REID [place] UNIT #: [id number] ROOM: [facility] DOCTOR: SILVIA BISHOP DO BIRTHDATE: [birth year] 2. Self-centering bipolar head, 44 mm outer diameter. 3. Articul/tripp femoral head 28 mm x 5 mm tapered. SILVIA BISHOP DO CM:OPRECORD:OPERATIVE NOTE 1555 1650 SILVIA BISHOP DO 06/23/19 1816 interface
--- NOTE | ~2019-06-22 | WRIGHTHP ---
[place], [place] PATIENT HISTORY AND PHYSICAL EXAM NAME: JOHAN REID [facility] #: [id number] UNIT #: [id number] ROOM: 520 DOCTOR: BRADEN CHAMBERLAIN MD BIRTHDATE: [birth year] DOS: 06/22/2019 HISTORY OF PRESENT ILLNESS: The patient is an 84-year-old female with left hip replacement yesterday. PAST MEDICAL HISTORY: 1. Morbid obesity. 2. Benign essential hypertension. 3. Chronic lower back pains. 4. Chronic atrial fibrillation. The patient had long-term anticoagulation. 5. Ambulatory dysfunction with recurrent falls. 6. Type 2 diabetes mellitus, insulin requiring. 7. Coronary artery disease of the hopi vessels. 8. Mixed hyperlipidemia. 9. Gastroesophageal reflux disease and esophagitis. The patient has been admitted after a left hip replacement by Dr. Bishop and to undergo pain control, DVT prophylaxis, and physical therapy. She is without shortness of breath. No chest pain. No GI or urinary symptoms. SYSTEMS REVIEW: RESPIRATORY: No increasing shortness of breath. GASTROINTESTINAL: No nausea, vomiting, diarrhea, or constipation. CARDIOVASCULAR SYSTEM: No chest pains or palpitations. RESPIRATORY: No shortness of breath or wheezing. ALLERGIES: Known allergies to QUINOLONES, ALLOPURINOL, and DARVOCET. PHYSICAL EXAMINATION: GENERAL APPEARANCE: Alert, oriented x 3, and somewhat sedated because of pain medications. VITAL SIGNS: Blood pressure 122/70, heart rate of 100 beats per minute, breathing 18 times per minute, and temperature 98 degrees Fahrenheit. HEENT AND NECK: Extraocular movements are intact. Sclerae are anicteric. Oral mucosa is moist and clean. No obvious facial weakness. Neck is supple without any lymphadenopathy. No thyromegaly. No JVD. No carotid arterial bruits. LUNGS: Clear to auscultation. No wheezing. No rhonchi. CARDIOVASCULAR SYSTEM: Heart rate is regular in rate and rhythm. S1 and S2 normally audible. No significant murmur or any other abnormal cardiac sounds. ABDOMEN: Soft, nontender. No obvious organomegaly. Bowel sounds are present. No obvious herniation. Morbid obesity, BMI of 45.3. EXTREMITIES: Without significant cyanosis or edema. Warm to touch. CENTRAL NERVOUS SYSTEM: Alert and oriented x 3. Cranial nerves II-XII are intact. Speech is normal. The patient is able to move all extremities. Normal muscle strength. Deep tendon reflexes are equal on both sides. Plantars were downgoing. IMPRESSION: 1. The patient with morbid obesity, to work with physical therapy. 2. Left hip replacement yesterday. The patient worked with physical therapy. Dr. Bishop has already ordered pain control and DVT prophylaxis. [place], [place] PATIENT HISTORY AND PHYSICAL EXAM NAME: JOHAN REID UNIT #: [id number] ROOM: [facility] DOCTOR: CINTIA FLORES,BRADEN Calvo BIRTHDATE: [birth year] 3. Diabetic gastroparesis, treated with Reglan. 4. Type 2 diabetes mellitus. Blood sugars to be monitored and treated. The patient on insulin. 5. Benign essential hypertension. I will continue her Norvasc. 6. Anticoagulation with apixaban, to be restarted now after a surgery. 7. The patient has history of osteoarthritis, remains on Celebrex, which is being continued. 8. Hypothyroidism. The patient remains on levothyroxine, continued 125 mcg a day. 9. For gastroesophageal reflux disease and esophagitis, patient remains on omeprazole. 10. Mixed hyperlipidemia, treated with pravastatin, continued. 11. The patient on insulin 70/30. The patient to be kept on no concentrated sweet diet. 12. Morbid obesity, BMI of 45.3. The patient to work with Dietary. BRADEN CHAMBERLAIN MD CM:HISPHYS:PATIENT HISTORY AND PHYSICAL EXAMINATION 1125 1210 BRADEN CHAMBERLAIN MD 06/23/19 1209 interface
--- NOTE | ~2019-06-22 | PR ---
[place], [place] PROGRESS NOTE [id number] UNIT #: [id number] ROOM: 520 DOCTOR: BRADEN CHAMBERLAIN MD BIRTHDATE: [birth year] DOS: 06/24/2019 SUBJECTIVE: The patient is somewhat drowsy from pain medications. Morbidly obese, quite weak and tired after her left hip replacement. OBJECTIVE: VITAL SIGNS: Blood pressure 138/86, heart rate 124 beats per minute, breathing 18 times per minute, temperature 98 degrees Fahrenheit. GENERAL APPEARANCE: The patient is alert and oriented x 3, in no visible distress. Morbid obesity and generalized weakness. HEENT AND NECK: Exam within normal limits. CARDIOVASCULAR SYSTEM: Heart rate is regular in rate and rhythm. S1 and S2 normally audible. LUNGS: Clear to auscultation. ABDOMEN: Soft, nontender. No obvious organomegaly. Bowel sounds are present. EXTREMITIES: Without significant cyanosis or edema. IMPRESSION: 1. The patient with atrial fibrillation and rapid ventricular response, started on IV Cardizem. Cardiology consulted. Heart rates have improved. 2. Morbid obesity, BMI of 45.3. The patient is working with Dietary. 3. The patient is status post hip replacement, pains controlled with opioids. The patient working with physical therapy. 4. Diabetic gastroparesis, treated with Reglan. 5. Type 2 diabetes mellitus. Blood sugars to be monitored and treated. 6. Benign essential hypertension, being treated and controlled. The patient was on Norvasc. 7. Hypothyroidism, treated with levothyroxine. 8. Gastroesophageal reflux disease and esophagitis, asymptomatic with omeprazole. 9. Mixed hyperlipidemia, treated with pravastatin. BRADEN CHAMBERLAIN MD CM:PNTRANS [id number] BRADEN CHAMBERLAIN MD 06/24/19 1226 interface
--- NOTE | ~2019-06-22 | EKG ---
[place], [place] ELECTROCARDIOGRAM REPORT NAME: JOHAN REID UNIT #: [id number] ROOM: 520 DOCTOR: EPIPHANY DRAFT REPORT BIRTHDATE: [birth year] [facility] Test Date: 2019-06-24 Test Time: 08:12:55 Pat Name: JOHAN REID Department: Room: 520 1 Gender: F [facility] Therapist: : 1935 Requested By: BRADEN CHAMBERLAIN Order Number: [id number] Reading MD: Saurav Luke MD Measurements Intervals [place] Rate: 122 P: HI: QRS: 31 QRSD: 75 T: 178 QT: 366 QTc: 522 Interpretive Statements Atrial fibrillation Ventricular premature complex Low voltage, precordial leads Anteroseptal infarct, old Borderline repolarization abnormality Prolonged QT interval Compared to ECG 06/09/2019 13:29:36 Ventricular premature complex(es) now present Low QRS voltage now present Myocardial infarct finding now present Prolonged QT interval now present Electronically Signed On 06-24-2019 8:10:13 PST by Saurav Luke MD CM:EKGRPT:ELECTROCARDIOGRAM REPORT BRADEN CHAMBERLAIN MD EPIPHANY DRAFT REPORT BRADEN CHAMBERLAIN MD
--- NOTE | ~2019-06-22 | DS ---
[place], [place] DISCHARGE SUMMARY NAME: JOHAN REID [facility] #: [id number] UNIT #: [id number] ROOM: 520 DOCTOR: BRADEN CHAMBERLAIN MD BIRTHDATE: [birth year] DOS: 06/25/2019 DISCHARGE DIAGNOSES: 1. The patient is status post left hip replacement by Dr. Bishop. 2. Morbid obesity. 3. Ambulatory dysfunction. 4. Pain medication-induced mental confusion and altered mental status. 5. Chronic atrial fibrillation. 6. Chronic lower back pain. 7. Ambulatory dysfunction with recurrent falls. 8. Type 2 diabetes mellitus. 9. Coronary artery disease of [place] vessel. 10. Mixed hyperlipidemia. 11. Gastroesophageal reflux disease and esophagitis. The patient was admitted after left hip replacement by Dr. Bishop at [facility] and kept on DVT prophylaxis and physical therapy. The patient has significant pain and has been getting morphine as well as Percocet for pain control, which is making her very drowsy and mentally confused. The patient now being sent to [facility] for rehab and physical therapy, occupational therapy and I will switch her to hydrocodone to see if that works better for the patient's mental alertness and also her pain control. 1. Morbid obesity, the patient work with physical therapy. 2. Diabetic gastroparesis, the patient continued on Reglan. 3. Benign essential hypertension, treated and control, blood pressures were monitored. She is on Norvasc. 4. Type 2 diabetes mellitus, blood sugars being monitor, treated and controlled. The patient to be kept on a no concentrated sweet diet. 5. Hypothyroidism, replaced with levothyroxine. 6. GERD and esophagitis, asymptomatic with Omeprazole. 7. Mixed hyperlipidemia, the patient kept on Pravastatin. 8. Morbid obesity, BMI 45.3, working with dietary. 9. Type 2 diabetes mellitus, the patient remains on 70/30 insulin. LABORATORY DATA: White cell count of 14,000, hemoglobin 9.2, platelets normal. DISCHARGE MANAGEMENT: Vicodin 5/325 q.i.d. p.r.n. for pain, atenolol 25 mg b.i.d., amlodipine 10 mg a day. NPH insulin 70/30, 35 units daily. Celebrex 200 mg a day, Apixaban 5 mg b.i.d., atorvastatin 5 mg a day, Colace 200 mg at bedtime, metoclopramide 5 mg before meals. Consult OT and PT. Keep the patient on atenolol 25 mg b.i.d. [place], [place] DISCHARGE SUMMARY NAME: JOHAN REID UNIT #: [id number] ROOM: [facility] DOCTOR: BRADEN CHAMBERLAIN MD BIRTHDATE: [birth year] BRADEN CHAMBERLAIN MD CM:DISCHARG [id number] BRADEN CHAMBERLAIN MD 06/25/19 1356 interface
--- NOTE | ~2019-06-22 | EKG ---
[place], [place] ELECTROCARDIOGRAM REPORT NAME: JOHAN REID UNIT #: [id number] ROOM: DOCTOR: EPIPHANY DRAFT REPORT BIRTHDATE: [birth year] [facility] Test Date: 2019-06-09 Test Time: 13:29:36 Pat Name: JOHAN REID Department: Room: Gender: F On Site Nurse: : 1935 Requested By: SILVIA RICHARDS Order Number: [id number] Reading MD: Deion Hernandez MD Measurements Intervals [place] Rate: 80 P: TX: QRS: 29 QRSD: 88 T: 47 QT: 364 QTc: 420 Interpretive Statements Atrial fibrillation Reginaldo septal ME,age undetermined Compared to ECG 06/11/2018 20:00:05 No significant changes Electronically Signed On 06-09-2019 17:35:21 PDT by Deion Hernandez MD CM:EKGRPT:ELECTROCARDIOGRAM REPORT [id number] SILVIA MOSCOSO DRAFT REPORT SILVIA RICHARDS DO
[~2019-06-22 00:38] MED LIST changes: -HYDROCODONE-AC1 EAC1 PO; -VITAMIN D32000 UNIT PO
[2019-06-22] MEDS ORDERED: VITAMIN D32000 UNIT PO (17:14)
--- NOTE | 2019-06-22 17:25 | NUR ---
Time: 1724 A 84 year old FEMALE admitted to under services of DR. CINTIA FLORES,BRADEN Peoples Pt. arrived via bed from [place]. Chief complaint: TOTAL L HIP. GILDARDO JOHNSON
--- NOTE | 2019-06-22 17:55 | NUR ---
PT RESTING IN BED. C/O LEFT HIP PAIN, RATES PAIN 15 ON PAIN SCALE 0-10 PER PT. SEE EMAR. MEDICATED WITH TORADOL IV PER ROUTINE ORDER, SEE EMAR. MADE PT AWARE IT DON'T HELP TO CALL. ABDUCTOR PILLOW BETWEEN LEGS. TEJAS,SCD'S ON. INCENTIVE SPIROMETER AT BEDSIDE VOICED IMPORTANCE OF USING AND TURNING COUGH AND DEEP BREATHING. ICE APPLIED TO LEFT HIP. TOLERATING IVF AND ANTIBIOTICS. DRESSING TO LEFT HIP D/I. TRAPEZE ON BED AND PT STATES SHE KNOWS HOW TO USE. CALL LIGHT IN REACH. WILL CON'T TO MONITOR. PULSE OX ON PT BECAUSE OF PAIN MEDICATION FROM OR. OXYGEN IN USE.
--- NOTE | 2019-06-22 18:30 | NUR ---
PT C/O PAIN TO LEFT HIP. RATES PAIN 10 ON PAIN SCALE 0-10. SEE EMAR. STATES TORADOL WASN'T EFFECTIVE. MEDICATED WITH DILAUDID IV PER PRN ORDER, SEE EMAR. PULSE OX ON PT. CONTINUOUS PULSE OX ON PT. 96% 2LITERS. CALL LIGHT IN REACH. BED ALARM ON.
--- NOTE | 2019-06-22 19:20 | NUR ---
CALLED DR. CHAMBERLAIN TO MAKE AWARE PT IN ROOM AND NEED MEDS ORDERED. NO ANSWER AT THIS TIME.
--- NOTE | 2019-06-22 19:48 | NUR ---
24 HR CHART CHECK COMPLETE.
--- NOTE | 2019-06-22 19:50 | NUR ---
PT IS ASLEEP IN BED AT THIS TIME. AROUSES EASILY. PT DENIES PAIN AND STATES THAT SHE IS COMFORTABLE AT THIS TIME. EDUCATION PROVIDED ON PRN PAIN MEDICATIONS. RESPS EASY AND NONLABORED, CONTINUOUS PULSE OX MAINTAINED. BED IS LOW, CALL LIGHT WITHIN REACH, WILL CONTINUE TO MONITOR.
[2019-06-23] VITALS: BP 125/80
[2019-06-23 06:42] LABS: BASO % 0.4 % (0.0-1.0); EOS # 0.1 10*3/uL (0.0-0.4); EOS % 0.5 % (1.0-4.0); HEMATOCRIT 35.2 % (37.0-47.0); LYMPH # 0.8 10*3/uL (1.3-4.4); MEAN CELL VOLUME 94.9 fl (81.0-99.0); MEAN CORPUSCULAR HGB 29.6 pg (27.0-31.0); MEAN CORPUSCULAR HGB CONC 31.3 g/dl (33.0-37.0); MEAN PLATELET VOLUME 11.2 fl (9.6-12.3); MONO # 0.8 10*3/uL (0.1-1.0); MONO % 8.5 % (3.0-9.0); NEUT # 7.8 10*3/uL (2.3-7.9); NEUT % 82.3 % (47.0-73.0); PLATELET COUNT AUTOMATED 165 10*3/uL (130-400); RED BLOOD COUNT 3.71 10*6/uL (4.10-5.10); RED CELL DISTRI WIDTH 13.3 % (0-14.5); WHITE BLOOD COUNT 9.5 10*3/uL (4.8-10.8)
--- NOTE | 2019-06-23 07:44 | NUR ---
MEDICATED WITH IV DILAUDID ORDERED PER PT REQUEST FOR C/O PAIN TO L HIP RATED 10/10.
[2019-06-23 08:00] VITALS: BP 122/70
--- NOTE | 2019-06-23 08:18 | NUR ---
Nursing screen received and Occupational Therapy referral received. Thank you. Noemí Ramos OTR/L
--- NOTE | 2019-06-23 08:19 | NUR ---
PHYSICAL THERAPY Screen recieved, PT eval ordered by Thank you Marcelle Broderick PT
--- NOTE | 2019-06-23 08:54 | NUR ---
PHYSICAL THERAPY Physical therapy evaluation completed, 5E. Full details and evaluation to follow. Moderate complexity determined after evaluation/chart review, [address]. PT to work on strength, gait, transfers, bed mobility, balance and safety. Will also emphasize importance and compliance with hip precautions and L LE TTWB status. Recommending SNF at discharge. Thank you Alessia Thayer, PT, DPT
--- NOTE | 2019-06-23 08:55 | NUR ---
Occupational therapy orders received and OT evaluation completed in full on floor five. Patient precautions include L LE toe touch weight bearing, total hip precautions, abduct legs at all times per physician orders, and R UE IV line. Per discussion with physician during evaluation, physician may change weight-bearing status, will follow up. Per OT eval, OT recommends a SNF. Patient complexity is moderate, 874[address]. Thank you for the referral. Inna Potts OTR/Bienvenido
--- NOTE | 2019-06-23 09:00 | NUR ---
Biomathematician in to talk to patient. Patient states lives at home alone with her family checking in on her. There are 12 steps in the home. Physician: Dr. Cyrus Pérez Pharmacy: [facility] Home health services: none Patient's level of ADLs: MODERATE ASSIST Patient has working utilities: yes DME: walker, cane Follow-up physician's appointment after d/c: she prefers to make her own follow up appt after discharge Does patient want to access PORTAL?: no Discharge plan discussed with patient. She lives at home alone with her family checking in on her. She is normally independent in her ADLs and ambulates with either a walker or a cane. Discussed short term SNF and she is agreeable. When provided with a list of facilities she chose [facility] and is adamant about not going to [facility]. adult day care worker notified. ROBERT MCCLAIN
--- NOTE | 2019-06-23 09:00 | NUR ---
MEDICATION EFFECTIVE FOR PAIN AND PT IS QUITE DISORIENTED NOW.
[2019-06-23 12:00] VITALS: BP 132/75
--- NOTE | 2019-06-23 12:32 | NUR ---
FLOOR CARE SPECIALIST received notice the patient would like to be referred to [facility]. FLOOR CARE SPECIALIST faxed new referral to [facility]. -ANDERS Pierce
--- NOTE | 2019-06-23 14:30 | NUR ---
OT TREATMENT Patient was supine in bed upon arrival and was agreeable to OT treatment. Per discussion with physician's office over the phone at 13:40, patient remains TTWB on L LE. Patient was re-educated on left total hip precautions and left TTWB prior to bed mobility with poor+ carryover during treatment. Patient completed bed mobility to EOB with Mod Ax2. When seated EOB, patient provided with a RB and performed pursed lip breathing techniques to decrease discomfort and SOB. Patient completed two functional sit/stands from EOB with a ww. Patient continuously instructed to put pressure on left toes only, not her heel with fair- carryover. While in stance, patient completed a light grooming task to challenge dynamic balance. Patient returned to EOB and assisted with a Max Ax3 to supine. With HOB elevated, patient completed an additional grooming task which incorporated reaching into all planes to retrieve items. Patient is progressing appropriately. Further OT treatments to focus on AE education for lower body dressing and continued safety during ADLs and mobility with L LE toe-touch weight bearing. Patient goals were updated secondary to improvements from patient's initial evaluation from 06/23/19 AM. PRINCESS Canseco/Bienvenido
--- NOTE | 2019-06-23 14:30 | NUR ---
PHYSICAL THERAPY Physical therapist, CAR WASHER and OT were present this afternoon to perform therapy treatment. Pt was too lethargic and disoriented this morning (pain medication) during initial evaluation to perform standing activities. Pt much more oriented this afternoon compared to this morning. Pt oriented to self, location, situation (surgery 06/22), month, year and president. Pt still presenting with delayed response to therapist questioning/commands and presenting with difficulty finding the proper wording to explain what she was feeling. Pt unable to formally rate stated L hip pain other than "it just hurts." Supine to sit mod A x2, sit to supine with max A x2. Pt sat at EOB and required intermittent cuing to maintain upright posture and to use B UE to help support sitting balance. intermittent CGA/min A x1 for sitting balance. Extensive visual and verbal cuing/education provided on L LE TTWB status prior and during standing activities. Educated on proper FWW safety, hip precautions. Pt was mod A x2 for sit <>stand (x2 attempts). Pt able to take 3-4 steps at EOB with mod A x2. Physical therapist placed foot under Pt's L heel to encourage L LE TTWB status and to gauge Pt's ability to comply with weight bearing status. Pt demonstrating significant difficulty complying with this status; may be due to fatigue, Pt reports of not feeling well, continual impaired cognition due to medication or decreased strength. Pt also expressing lower leg calf pain bilaterally; sensitive to touch around mid calf. Upon adjusting compression socks (pull up all the way instead of jail), Pt expressed releif in discomfort. Pt was safely returned to supine position at therapy exit with hip abductor wedge, LE leg pumps and heel relieving boots. Call light within reach. Thank you Alessia Thayer, PT, DPT
--- NOTE | 2019-06-23 14:36 | NUR ---
Ribbon Cleaner in to see patient. Discussed her insurance is not in network with [facility]. Discussed [facility] in [place] and [place] in [place]. Those facilities are to far for her. She would like to go to [facility] now. machine shop worker notified.
--- NOTE | 2019-06-23 14:41 | NUR ---
Patient is out of network with [facility]. ADVANCED QUALITY ENGINEER notified by Tacking Machine Operator Mago patient would now like to be referred to [facility]. ADVANCED QUALITY ENGINEER faxed referral over to [facility]. -ANDERS Pierce
--- NOTE | 2019-06-23 15:50 | NUR ---
Occupational therapist received updated orders from physician stating "increase to WBAT LLE w/ total hip precautions." The order was received on 06/23/19 at 15:39. Patient goals have been updated to match new weight bearing status. Goals as follow- Dressing: Supervision upper body and Min A lower body with AE with total hip prec Grooming: Independent grooming in stance with L LE WBAT and total hip precautions Toileting: Min A toileting hygiene and clothing management with L LE WBAT and total hip precautions Mobility: Mod Ax1 bed mobility and Min Ax2 functional mobility with L LE WBAT with total hip precautions Balance: Increase dynamic balance to fair Safety: Demonstrate 100% safety with ww use, L LE WBAT, and left total hip precautions Thank you for the referral. Inna Potts OTR/L
[2019-06-23 16:00] VITALS: BP 128/75
--- NOTE | 2019-06-23 17:05 | NUR ---
MEDICATED WITH IV DILAUDID, ONLY 1MG, PER PT REQUEST FOR C/O PAIN TO LEFT HIP RATED 8/10.
--- NOTE | 2019-06-23 18:30 | NUR ---
MEDICATION EFFECTIVE FOR PAIN.
[2019-06-23 20:00] VITALS: BP 145/95
[2019-06-24] VITALS (8 sets, daily range): BP systolic 122–148; BP diastolic 52–98
[2019-06-24 06:11] LABS: BASO # 0.1 10*3/uL (0.0-0.1); BASO % 0.3 % (0.0-1.0); EOS # 0.1 10*3/uL (0.0-0.4); EOS % 0.3 % (1.0-4.0); HEMATOCRIT 30.8 % (37.0-47.0); HEMOGLOBIN 9.5 g/dl (12.0-16.0); LYMPH % 6.2 % (27.0-41.0); MEAN CORPUSCULAR HGB 29.6 pg (27.0-31.0); MEAN CORPUSCULAR HGB CONC 30.8 g/dl (33.0-37.0); MEAN PLATELET VOLUME 11.7 fl (9.6-12.3); MONO # 1.1 10*3/uL (0.1-1.0); MONO % 7.4 % (3.0-9.0); NEUT # 13.1 10*3/uL (2.3-7.9); NEUT % 85.3 % (47.0-73.0); PLATELET COUNT AUTOMATED 156 10*3/uL (130-400); RED BLOOD COUNT 3.21 10*6/uL (4.10-5.10); RED CELL DISTRI WIDTH 13.4 % (0-14.5); WHITE BLOOD COUNT 15.3 10*3/uL (4.8-10.8)
--- NOTE | 2019-06-24 08:15 | NUR ---
DR CHAMBERLAIN NOTIFIED OF AFIB WITH RVR AT 122 PER EKG, DIAPHORESIS AND BP OF 138/86.
--- NOTE | 2019-06-24 08:49 | NUR ---
OT NOTE Attempted to see pt this A.M. for OT session and upon arrival pt's resting heart rate was 108 bpm and pt was unable to open her eyes for longer than 5 seconds at a time before falling asleep again. Pt was unable to follow simple commands at this time. Pt inappropriate for therapy, will check back at a later time/date and continue with POC as able. Notified pt's nurse of resting heart rate. WINSOME Nichole/Bienvenido
--- NOTE | 2019-06-24 09:00 | NUR ---
DR SEAY'S OFFICE NOTIFIED OF CONSULT.
--- NOTE | 2019-06-24 09:00 | NUR ---
Dish Maker in to see patient. No new needs or request at this time. When medically stable and precert is obtained she will be discharged to [facility]. field ironworker following.
--- NOTE | 2019-06-24 10:09 | NUR ---
PHYSICAL THERAPY Patient was lethargic and was given delaudid recently and her heart rate was elevated. Will check back later. DIAN GUSTAFSON LIFE SKILLS COORDINATOR
--- NOTE | 2019-06-24 11:00 | NUR ---
OT NOTE Pt was seen this A.M. 1:1 for 30 minute OT session. Upon arrival pt was supine in bed. Pt identified by name and and had complaints of 8/10 L hip pain. Pt presented to therapy with resting heart rate of 96 bpm and poor command follow due to "pain medicine" per pt. Requested for pt to verbalize her hip precautions and pt was unable to even process what was being asked. Pt was still educated on hip precautions for safety concerns. Pt transferred supine to sit EOB with maxA X 2. There she completed multiple sit to stand transfers from bed level with modA X 2 and use of w/w for UE support. Challenged pt's static standing tolerance needed for increased I in self care tasks and functional transfers. Pt was able to tolerate aprox 60 seconds at a time before sitting due to fatigue. Pt then transferred back into bed sit to supine with maxA X 2. THere she was left with call light in hand, abductor pillow in place, and bed alarm activated for safety. No adaptive equipment training completed at this time due pt's poor processing, will address at a later time. Continue with rec D/ Cplan to SNF. WINSOME Nichole/Bienvenido
--- NOTE | 2019-06-24 11:03 | NUR ---
DR SEAY IN TO SEE PT. THERAPY IN TO WORK WITH PT WHO WAS OOB. HANEY CATHETER D/C'D. L HIP DRESSING D/I. CARDIZEM GTT INCREASED TO 10MG/HR PER DR SEAY VO.
--- NOTE | 2019-06-24 11:07 | NUR ---
PHYSICAL THERAPY Patient presented to therapy in supine with head of bed elevated and bed alarm activated. Patient gives informed consent for treatment. Patient was identified by name and on wristband. Patient has L hip arthroplasty. Patient was instructed in hip precautions. Patient had report of 7/10 pain in the L hip. Patient performed supine to sitting at EOB with MAX A X 2. Patient sat on EOB with SBA. Patient performed sit to stand from EOB to Walker with MOD A X 2 with verbal cues for pushing off the bed with hands. Patient performed standing tolerance at Walker with MIN A X 2 for 20 seconds x 2 attempts with verbal cues for upright posture and WBAT on the L LE. Patient also required verbal cues for pushing down on Walker with hands to assist with upright posture. Patient side-stepped the 4 th time she stood with MIN A X 1 up to head of bed with this WOOD TILE INSTALLER assisting with moving walker to the L as she side-stepped to head of bed. Patient transferred back to supine with MAX A X 2. Patient was moved up to head of bed with MAX A X 2. Patient was left in supine with head of bed in bed elevated, call light within reach, and bed alarm activated. Patient's hip abduction pillow was put in place, compression sleeves put on LEs, and bed alarm activated. Patient was 1;1 with this WOOD TILE INSTALLER for 20 minutes. DIAN GUSTAFSON WOOD TILE INSTALLER
[2019-06-24 11:52] LABS: BUN 16 mg/dl (7-24); CHLORIDE 116 mmol/L (98-107); CREATININE 0.77 mg/dL (0.55-1.02); POTASSIUM 4.2 mmol/L (3.5-5.1); SODIUM 136 mmol/L (136-145)
--- NOTE | 2019-06-24 13:21 | NUR ---
OT NOTE Attempted to see pt this P.M. for second OT session and upon arrival pt was supine in bed, pt had reports of 10/10 L hip pain stating "the pain is killing me, there is no way I can do anything." Pt was very adamant that she was not going participate with all task presented at this time. Will check back at a later time/date and continue with POC as able. AIDAN Nichole
--- NOTE | 2019-06-24 13:24 | NUR ---
PHYSICAL THERAPY Patient presented to therapy in supine with complaint of pain i nthe L HIP that is intolerable at 10/10. Patient is receiving IV medications at this time. Patient was approached by this COMPOTYPE OPERATOR and WINSOME HARTMANN and neither therapist was able to convince her to participate in therapy sesssion. Patient declined therapy due to 10/10 pain and being very lethargic because of pain medications in use. NO THERAPY PROVIDED THIS AFTERNOON FOR THIS REASON. DIAN GUSTAFSON COMPOTYPE OPERATOR
--- NOTE | 2019-06-24 15:35 | NUR ---
MEDICATED WITH PO TYLENOL ORDERED PER PT REQUEST FOR FEVER 0F 99.7, DR RICHARDS AWARE.
--- NOTE | 2019-06-24 16:00 | NUR ---
DR RICHARDS CHANGED DRESSING W/ AIDE AND DID NOT NOTIFY RN, THEREFORE POST-OP PICTURE WAS NOT YET TAKEN.
[2019-06-24 16:15] LABS: BILIRUBIN NEGATIVE (NEGATIVE); BLOOD NEGATIVE (NEGATIVE); CLARITY CLEAR (CLEAR); COLOR YELLOW (YELLOW); GLUCOSE NEGATIVE (NEGATIVE); KETONE NEGATIVE (NEGATIVE); LEUKO ESTERASE NEGATIVE (NEGATIVE); NITRITE NEGATIVE (NEGATIVE); PH 5.5 (5.0-9.0); UROBILINOGEN 0.2 E.U./dl (0.2-1.0)
--- NOTE | 2019-06-24 20:25 | NUR ---
PATIENT MEDICATED WITH PERCOCET PER DRS ORDERS FOR COMPLAINTS OF RIGHT HIP PAIN, 03/20. PATIENT ALSO MEDICATED WITH PM MEDICATIONS PER HER REQUEST. STATES SHE WANTS TO GET RESTED UP TONIGHT. RN WILL MONITOR AND REASSESS THE PATIENT FOR EFFECTIVENESS OF PAIN MEDICATION
[2019-06-25] VITALS: BP 133/62
--- NOTE | 2019-06-25 07:15 | NUR ---
ARRIVED ON SHIFT, INTRODUCED TO PATIENT, BEDSIDE REPORT RECEIVED, NO NEEDS VOICED AT THIS TIME, WHITE BOARD UPDATED.
[2019-06-25 07:26] LABS: BASO % 0.3 % (0.0-1.0); EOS # 0.1 10*3/uL (0.0-0.4); EOS % 0.9 % (1.0-4.0); HEMATOCRIT 29.1 % (37.0-47.0); HEMOGLOBIN 9.2 g/dl (12.0-16.0); LYMPH % 6.7 % (27.0-41.0); MEAN CELL VOLUME 93.9 fl (81.0-99.0); MEAN CORPUSCULAR HGB 29.7 pg (27.0-31.0); MEAN CORPUSCULAR HGB CONC 31.6 g/dl (33.0-37.0); MEAN PLATELET VOLUME 11.7 fl (9.6-12.3); MONO # 0.7 10*3/uL (0.1-1.0); NEUT # 12.2 10*3/uL (2.3-7.9); NEUT % 86.5 % (47.0-73.0); PLATELET COUNT AUTOMATED 180 10*3/uL (130-400); RED CELL DISTRI WIDTH 13.5 % (0-14.5); WHITE BLOOD COUNT 14.1 10*3/uL (4.8-10.8)
[2019-06-25 08:00] VITALS: BP 142/70
--- NOTE | 2019-06-25 08:00 | NUR ---
Shift chart check completed.
--- NOTE | 2019-06-25 09:22 | NUR ---
OT NOTE PATIENT SEEN 1:1 OT THIS DATE 17 MINUTES. PATIENT IDENTIFIED BY NAME AND DATE OF . PATIENT IN RECLINER UPON ARRIVAL. COMPLETED AE EDUCATION SECONDARY HIP PRECAUTIONS AND TO FACILITATE PROPER CARRYOVER. PATIENT UNABLE TO RECALL HIP PRECAUTIONS WITH EDUCATION COMPLETED AND FURTHER NEED EDUCATION FOR PROPER CARRYOVER IN ADLS. PATIENT EDUCATED LB DRESSING TASK DOFF SOCKS USE RN MDS AND LISA SOCKS USE SOCK AIDE MAX A AND MOD VERBAL CUES TECHNIQUE AND FORM. PATIENT PROVIDED WITH RN MDS AND SOCK AIDE THIS DATE FOR USE IN ROOM. PATIENT REPORTS THAT SHE IS FAMILIAR WITH USE RN MDS WITH EDUCATION USE PLATE FORMER ITEMS FROM FLOOR FOR HIP PRECAUTION CARRYOVER. PATIENT SEATED IN RECLINER WITH LEGS ELEVATED AND ABDUCTOR WEDGE IN PLACE. NO FURTHER NEEDS VERBALIZED WITH CALL LIGHT IN REACH. CONTINUE TOWARDS PLAN OF CARE. GLORIA BERMUDEZ
--- NOTE | 2019-06-25 09:45 | NUR ---
PHYSICAL THERAPY Patient seen this am 1:1 for therapy visit and was sitting up in bedside chair upon therapist arrival. Patient identified by name / and is WBAT on L LE, voicing no c/o's pain, only increased L hip stiffness this session. Patient performed several sit to stand transfers from low chair surface, MOD A, tolerating < 1 minute static stand each trial. Patient use of wh walker standing support and completed SPT to BS, Min A, demonstrating increased difficulty with safe step sequence. Patient needed several v/c's to complete transfer safely to avoid increased risk of falling. Patient returned to bedside chair and remained with call light, tray table, telephone and body alarm for safety. Will continue per POC as tolerated, total treatment time 14 minutes. Ishan Santos, DIRECTOR TRANSLATIONAL
--- NOTE | 2019-06-25 11:52 | NUR ---
PRECERT has been obtained. SERVICE STATION HELPER reached out to Dr. Pérez and let him know that the patient is able to go if medically stable. SERVICE STATION HELPER to complete HENs. -ANDERS Pierce
[2019-06-25 12:00] VITALS: BP 135/65
--- NOTE | 2019-06-25 12:37 | NUR ---
PATIENT C/O LEFT HIP PAIN MEDICATED WITH PERCOCET ORDERED PRN.
--- NOTE | 2019-06-25 12:39 | NUR ---
OT NOTE PATIENT SEEN OT THIS PM 10 MINUTES. PATIENT SEATED ON BEDSIDE COMMODE. PATIENT MAX A TOILETING. PATIENT REQUESTED TO LIE DOWN IN BED TO REST. COMPLETED STAND PIVOT TRANSFER BEDSIDE COMMODE TO BED MIN A X 2 WITH INCREASE TIME AND MOD VERBAL CUES TECHNIQUE AND FWW MANAGEMENT. COMPLETED SIT TO SUPINE MAX A X 2 WITH PATIENT REPORTING LEFT HIP PAIN WITH NURSING AWARE. NURSING WITH THE PATIENT END OF SESSION THIS DATE. PATIENT IN BED WITH BED ALARM IN TACT, ABDUCTOR WEDGE IN PLACE, HEEL CUSHIONS DONNED, AND CALL LIGHT WITHIN REACH. CONTINUE TOWARDS PLAN OF CARE. GLORIA SCHUMACHER/Bienvenido
--- NOTE | 2019-06-25 12:45 | NUR ---
PHYSICAL THERAPY Patient was resting comfortably supine in bed this pm and reports quick onset of L hip / LE pain. Patient had just returned to bed and received pain meds following OT outreach assistant treatment and was not feeling well enough to participate. Will continue per POC as able. Ishan Santos, COLLECTIONS ATTORNEY
[2019-06-25] MEDS ORDERED: HYDROCODONE-AC1 EAC1 PO (12:46)
--- NOTE | 2019-06-25 13:25 | NUR ---
PLEATING SUPERVISOR received notice of patients discharge. PLEATING SUPERVISOR spoke with [facility]. PLEATING SUPERVISOR spoke with [facility]. They are able to transport the patient at 3pm today. PLEATING SUPERVISOR spoke with the patient and patients son Tj at bedside. They are both agreeable to the transport with [facility] at 3pm today. PLEATING SUPERVISOR notified [facility] and will fax discharge orders. -ANDERS Pierce
--- NOTE | 2019-06-25 15:05 | NUR ---
Discharge instructions reviewed with nurse Casas at [facility], she was receptive to patients transfer. Reviewed patients current health history, verbalizes understanding. Family aware of transfer. Written instructions given to patient/family. Patient left via [place] ambulance, telemetry and IV's removed. SELENE CANELA
--- NOTE | 2019-06-25 15:25 | NUR ---
PHYSICAL THERAPY CO-SIGN I approve of the Physical Therapy notes written above. Marcelle Broderick PT
--- NOTE | 2019-06-28 08:07 | NUR ---
PHYSICAL THERAPY CO-SIGN I approve of the Physical Therapy notes written above Marcelle Broderick PT
--- NOTE | 2019-06-28 16:14 | NUR ---
OCCUPATIONAL THERAPY CO-SIGN I approve of the Occupational Therapy notes written above. JOSEPH SIMMONS OTR/Bienvenido
== END 2019-06-25 15:05 | disposition other institution (70) | DRG 469 ==
LOC: SDC 00:38 → 5E 09:36 → SDC 10:30 → 5E 06-24 09:58
PROVIDERS: Internal Medicine Cardiovascular Disease; Orthopaedic Surgery; ADMIT Internal Medicine
PROC: 0SRS0JA Replacement of Left Hip Joint, Femoral Surface with Synthetic Substitute, Uncemented, Open Approach (ICD-10-PCS; principal; 2019-06-22)
PROC: 0QP704Z Removal of Internal Fixation Device from Left Upper Femur, Open Approach (ICD-10-PCS; principal; 2019-06-22)
DX: T84.84XA Pain due to internal orthopedic prosthetic devices, implants and grafts, initial encounter (principal); S72.002A Fracture of unspecified part of neck of left femur, initial encounter for closed fracture; Z68.42 Body mass index [BMI] 45.0-49.9, adult; E11.43 Type 2 diabetes mellitus with diabetic autonomic (poly)neuropathy; M16.12 Unilateral primary osteoarthritis, left hip; E66.01 Morbid (severe) obesity due to excess calories; Y92.239 Unspecified place in hospital as the place of occurrence of the external cause; G89.29 Other chronic pain; I48.20 Chronic atrial fibrillation, unspecified; M54.5 Low back pain; M53.3 Sacrococcygeal disorders, not elsewhere classified; I25.10 Atherosclerotic heart disease of native coronary artery without angina pectoris; T40.2X5A Adverse effect of other opioids, initial encounter; R41.0 Disorientation, unspecified; E03.9 Hypothyroidism, unspecified; Z96.653 Presence of artificial knee joint, bilateral; E78.2 Mixed hyperlipidemia; I12.9 Hypertensive chronic kidney disease with stage 1 through stage 4 chronic kidney disease, or unspecified chronic kidney disease; N18.3 Chronic kidney disease, stage 3 (moderate); M70.62 Trochanteric bursitis, left hip; E11.22 Type 2 diabetes mellitus with diabetic chronic kidney disease; K21.0 Gastro-esophageal reflux disease with esophagitis; K31.84 Gastroparesis; R29.6 Repeated falls; Y83.8 Other surgical procedures as the cause of abnormal reaction of the patient, or of later complication, without mention of misadventure at the time of the procedure; X58.XXXA Exposure to other specified factors, initial encounter; Y93.89 Activity, other specified; Y92.89 Other specified places as the place of occurrence of the external cause; Y99.8 Other external cause status; Z79.01 Long term (current) use of anticoagulants; Z88.1 Allergy status to other antibiotic agents; Z88.8 Allergy status to other drugs, medicaments and biological substances; Z88.6 Allergy status to analgesic agent; Z90.710 Acquired absence of both cervix and uterus; Z79.899 Other long term (current) drug therapy

== ENCOUNTER 2019-06-30 16:34 | Inpatient (IN) | payer OTHER ==
[~2019-06-30] VITALS: Ht 152.4 cm; Wt 110.7 kg
[~2019-06-30 16:34] MED LIST changes: +HYDROCODONE-AC1 EAC1 PO; +VITAMIN D32000 UNIT PO
[2019-06-30 16:41] VITALS: BP 133/47
--- NOTE | 2019-06-30 18:10 | NUR ---
DR RICHARDS CALLED AND WANTS PT ADMITTED TO HOSPITALIST. DR RICHARDS SAYS SHE WILL DO SURGEY ON PT TOMORROW.
[2019-06-30 18:37] LABS: BASO # 0.1 10*3/uL (0.0-0.1); BASO % 0.5 % (0.0-1.0); EOS # 0.2 10*3/uL (0.0-0.4); EOS % 1.6 % (1.0-4.0); HEMATOCRIT 27.6 % (37.0-47.0); HEMOGLOBIN 8.8 g/dl (12.0-16.0); LYMPH # 1.5 10*3/uL (1.3-4.4); LYMPH % 10.1 % (27.0-41.0); MEAN CELL VOLUME 93.6 fl (81.0-99.0); MEAN CORPUSCULAR HGB 29.8 pg (27.0-31.0); MEAN CORPUSCULAR HGB CONC 31.9 g/dl (33.0-37.0); MEAN PLATELET VOLUME 10.3 fl (9.6-12.3); MONO # 1.1 10*3/uL (0.1-1.0); MONO % 7.7 % (3.0-9.0); NEUT # 11.8 10*3/uL (2.3-7.9); PLATELET COUNT AUTOMATED 325 10*3/uL (130-400); RED BLOOD COUNT 2.95 10*6/uL (4.10-5.10); RED CELL DISTRI WIDTH 13.8 % (0-14.5); WHITE BLOOD COUNT 14.9 10*3/uL (4.8-10.8)
[2019-06-30 18:51] LABS: ALBUMIN 2.8 gm/dl (3.1-4.5); ALKALINE PHOSPHATASE 67 U/L (45-117); BUN 16 mg/dl (7-24); CHLORIDE 107 mmol/L (98-107); CREATININE 0.69 mg/dL (0.55-1.02); POTASSIUM 3.3 mmol/L (3.5-5.1); SGOT/AST 29 IU/L (3-35); SGPT/ALT 22 U/L (12-78); SODIUM 139 mmol/L (136-145); TOTAL PROTEIN 6.3 gm/dL (6.4-8.2)
[2019-06-30 18:57] LABS: ACT PARTIAL THROMBO TIME 30.7 SECONDS (20.0-32.1); INTERNATIONAL NORM RATIO 1.1 (2.0-3.5)
--- NOTE | 2019-06-30 19:06 | NUR ---
PTS LEFT HIP DRESSING WAS CHANGED.
[2019-06-30 19:09] VITALS: BP 140/64
--- NOTE | 2019-06-30 19:10 | NUR ---
REPORT RECEIVED FROM RUBEN BILLY. PT RESTING QUIETLY AT THIS TIME WITH NO COMPLAINTS.
[2019-06-30 19:40] VITALS: BP 150/73
--- NOTE | 2019-06-30 19:40 | NUR ---
A 84, admitted to , under the services of Dr. CINTIA FLORES,BRADEN Calvo with a diagnosis of HIP PAIN. Chief complaint is ACUTE PAIN. Patient arrived via stretcher from ER. Monitor applied. Initial assessment completed. Vital signs taken and recorded. DR. CINTIA FLORES,BRADEN Calvo notified of admission to the unit. Orders received. See assessment for past medical history, medications and allergies. Patient and/or family oriented to unit. [facility] visitation policy reviewed. Clothing/patient valuable form completed. PT'S INITAL ASSESSMENT IS COMPLETED. PT IS ALERT AND ORIENTED X3. PT HAS A SCAB ON LEFT LOWER LEG, LARGER BRUISE ON LEFT HIP. LEFT HIP ALSO HAS AN OLD SURGICAL INCISION WITH 35 MABLE MEASURING TO BE 31x0.5 WITH LARGE AMOUNT OF BLOODY DRAINAGE PRESENT. LT HIP DRESSING WAS CHANGED. PER ER NURSE. PHOTOS WERE TAKEN IN ER WHEN PT WAS DOWNSTAIRS. BILATERAL HEELS WERE PINK, BLANCHABLE, AND BOGGY. BLE = +3 PITTING EDEMA. PT'S IV IS IN THE LEFT HAND AND IS CLEAN, DRY, AND INTACT. CALL LIGHT IS IN REACH FOR PT'S USE. BED ALARM IS ON. SAFETY PRECAUTIONS WERE PROVIDED TO PT. PT COMPLAINS OF PAIN AT THIS TIME TO THE LEFT HIP, NOTIFIED PT THAT WHEN DR. CHAMBERLAIN IS CALLED, I WILL ASK FOR SOMETHING FOR HER PAIN. BESIDES PAIN, PT HAS NO OTHER NEEDS AT THIS TIME. TATYANA MEEK
--- NOTE | 2019-06-30 20:30 | NUR ---
PT'S DRESSING WAS SATURATED IN BLOOD. DRESSING WAS REMOVED AND NEW DRESSING WAS PLACED.
--- NOTE | 2019-06-30 21:00 | NUR ---
COMPLETED MED REQ AND CALLED DR. CHAMBERLAIN FOR ADMISSION ORDERS. ORDERS WERE RECEIVED.
[2019-06-30] MEDS ORDERED: DULCOLAX STOOL100 M1 PO (21:05)
[2019-06-30] MEDS ORDERED: TENORMIN25 M1 PO (21:07)
[2019-06-30] MEDS ORDERED: REGLAN5 MG PO (21:12)
--- NOTE | 2019-06-30 21:58 | NUR ---
ONE TIME DOSE OF 15MCG OF FENTANYL WAS GIVEN FOR LEFT HIP PAIN. WILL MONITOR AND REASSESS EFFECTIVENESS.
--- NOTE | 2019-06-30 22:30 | NUR ---
ONE TIME DOSE OF IV FENTANYL WAS EFFECTIVE. PT IS RESTING COMFORTABLY WITH HER EYES SHUT. NO SIGNS OF DISTRESS NOTED.
[2019-07-01] VITALS (14 sets, daily range): BP systolic 110–156; BP diastolic 40–84
--- NOTE | 2019-07-01 06:04 | NUR ---
ONE TIME DOSE OF 15MCG IV FENTANYL WAS GIVEN FOR PAIN OF THE LEFT HIP. WILL MONITOR AND REASSESS EFFECTIVENESS.
--- NOTE | 2019-07-01 06:41 | NUR ---
ONE TIME DOSE OF IV FENTANYL WAS EFFECTIVE. PT IS RESTING COMFORTABLY IN BED WITH NO SIGNS OF DISTRESS.
--- NOTE | 2019-07-01 07:03 | NUR ---
ATTEMPTED TO CALL AND NOTIFY PT'S DAUGHTER IN LAW CLARENCE ABOUT PT'S SURGERY THIS AM. CLARENCE DID NOT ANSWER.
--- NOTE | 2019-07-01 07:05 | NUR ---
ATTEMPTED TO CALL SAQIB REID, PT'S SON IN REGARDS TO NOTIFYING THEM OF PT'S SURGERY.
--- NOTE | 2019-07-01 07:07 | NUR ---
PT WANTED HER FABRICATION TECHNICIAN TO BE AWARE OF SURGERY, BUT FABRICATION TECHNICIAN SHARIFA EASON DID NOT ANSWER.
--- NOTE | 2019-07-01 07:25 | NUR ---
PT TAKEN TO SURGERY AT THIS TIME.
[2019-07-01 07:49] LABS: BUN 13 mg/dl (7-24); CHLORIDE 103 mmol/L (98-107); CREATININE 0.56 mg/dL (0.55-1.02); POTASSIUM 3.5 mmol/L (3.5-5.1); SODIUM 137 mmol/L (136-145)
[2019-07-01 07:50] LABS: BASO # 0.1 10*3/uL (0.0-0.1); BASO % 0.4 % (0.0-1.0); EOS # 0.1 10*3/uL (0.0-0.4); EOS % 0.9 % (1.0-4.0); HEMATOCRIT 27.3 % (37.0-47.0); HEMOGLOBIN 8.6 g/dl (12.0-16.0); LYMPH # 0.9 10*3/uL (1.3-4.4); LYMPH % 6.8 % (27.0-41.0); MEAN CELL VOLUME 93.8 fl (81.0-99.0); MEAN CORPUSCULAR HGB 29.6 pg (27.0-31.0); MEAN CORPUSCULAR HGB CONC 31.5 g/dl (33.0-37.0); MEAN PLATELET VOLUME 10.6 fl (9.6-12.3); MONO # 0.8 10*3/uL (0.1-1.0); MONO % 5.8 % (3.0-9.0); NEUT % 84.9 % (47.0-73.0); PLATELET COUNT AUTOMATED 334 10*3/uL (130-400); RED BLOOD COUNT 2.91 10*6/uL (4.10-5.10); RED CELL DISTRI WIDTH 14.2 % (0-14.5)
--- NOTE | 2019-07-01 08:10 | NUR ---
Patient presents from [facility]. If patient would like to return to [facility] she will require a PRECERT. -ANDERS Pierce
--- NOTE | 2019-07-01 09:00 | NUR ---
Ebd Special Education Teacher in to see patient. She is currently not in her room. Will follow up at a later time.
--- NOTE | 2019-07-01 09:22 | NUR ---
UNABLE TO ASSESS PATIENT AT THIS TIME. PER NURSE PATIENT IS IN SURGERY AT THIS TIME.
--- NOTE | 2019-07-01 10:25 | NUR ---
Nursing screen received and chart review completed. Recommend Occupational Therapy referral once orthopedic intervention and weight bearing received. Thank you. Noemí Ramos OTR/l
[2019-07-01] MEDS ORDERED: NOVOLOG MI100 UNIT/2 SQ ×2 (11:37→18:48)
[2019-07-01 15:14] LABS: HEMATOCRIT 30.7 % (37.0-47.0); HEMOGLOBIN 9.9 g/dl (12.0-16.0); MEAN CELL VOLUME 91.4 fl (81.0-99.0); MEAN CORPUSCULAR HGB 29.5 pg (27.0-31.0); MEAN CORPUSCULAR HGB CONC 32.2 g/dl (33.0-37.0); MEAN PLATELET VOLUME 10.4 fl (9.6-12.3); NUCLEATED RED BLOOD CELL 0.1 % (0.0-0.0); PLATELET COUNT AUTOMATED 386 10*3/uL (130-400); RED BLOOD COUNT 3.36 10*6/uL (4.10-5.10); RED CELL DISTRI WIDTH 15.2 % (0-14.5); WHITE BLOOD COUNT 21.1 10*3/uL (4.8-10.8)
[2019-07-01 15:26] LABS: BUN 14 mg/dl (7-24); CHLORIDE 109 mmol/L (98-107); CREATININE 0.75 mg/dL (0.55-1.02); POTASSIUM 3.7 mmol/L (3.5-5.1); SODIUM 139 mmol/L (136-145)
[2019-07-01 15:37] LABS: POLYCHROMASIA SLIGHT; TOTAL CELLS COUNTED 100 #CELLS
[2019-07-01 15:39] LABS: PLATELET SUFFICIENCY NORMAL (NORMAL)
--- NOTE | 2019-07-01 16:13 | NUR ---
Rubber Engraver in to see patient. She is currently not in her room. Will follow up at a later time.
--- NOTE | 2019-07-01 16:50 | NUR ---
PT RETURNS TO FLOOR FROM SURGERY AT THIS TIME. PT AWAKE, ALERT AND ORIENTED. DRESSING TO LEFT HIP C/D/I. ICE IN PLACE TO LEFT HIP. SCDS ON BILATERAL LEGS. HANEY IN PLACE, DRAINING DARK MIGUEL ÁNGEL URINE. WILL ASSESS PT AND CATCH PT UP ON APPROPRIATE MEDICATIONS. ALL SAFETY MEASURES IN PLACE. CALL LIGHT IN REACH.
--- NOTE | 2019-07-01 16:59 | NUR ---
NORCO GIVEN AT THIS TIME FOR COMPLAINTS OF PAIN TO PT LEFT HIP. PT DESCRIBES PAIN A 5/10 AND STATES THAT IT FEELS ACHEY. PT STATES THAT HER PAIN HAS IMPROVED FROM HER ADMISSION LAST NIGHT. WILL MONITOR FOR EFFECTIVENESS OF MEDICATION. CALL LIGHT IN REACH.
--- NOTE | 2019-07-01 17:59 | NUR ---
NETO EFFECTIVE PER PT.
[2019-07-01] MEDS ORDERED: HUMULIN 70/30 PE3 ML SQ (18:45)
--- NOTE | 2019-07-01 18:49 | NUR ---
SPOKE WITH DR CHAMBERLAIN REGARDING PT BLOOD SUGAR OF 319, INSULIN ORDERS, AND IV FLUID CLARIFICATIONS. NEW ORDERS RECEIVED TO CHANGE PT NOVOLOG 70/30 35 UNITS DAILY TO NOVOLOG 70/30 20 UNITS BID AND TO GIVE NOW TO PT. UPON CLARIFYING PT IV FLUIDS, PHYSICIAN STATES TO GIVE PT ONE MORE LITER OF FLUIDS AT 60 CC/HOUR AND THEN TO DISCONTINUE FLUIDS. WILL PLACE ALL APPROPRIATE ORDERS AND NOTIFY PATIENT.
--- NOTE | 2019-07-01 19:27 | NUR ---
24 HR chart check completed.
--- NOTE | 2019-07-01 20:00 | NUR ---
SLEEPING. RESPIRATIONS EASY. LUNGS DIMINISHED, CLEAR. PULSE OX 99% RA. DRESSING MAINTAINED TO LEFT HIP WITH BLODDY DRAINAGE NOTED, HEMOVAC NOT FUCNTIONING. ICE PACK MAINTAINED TO LEFT HIP. SCDS AND ABDUCTOR PILLOW IN PLACE, HEEL PROTECTORS PLACED PER ORDER. IV FLUIDS INFUSING PER ORDER. CALL LIGHT WITHIN REACH. NO VOICED COMPLAINTS. BED ALARM MAINTAINED FOR SAFETY
--- NOTE | 2019-07-01 21:48 | NUR ---
AWAKENS, C/O PAIN TO LEFT HIP STATING "IT HURTS." MEDICATED WITH NORCO PER PRN ORDER. CALL LIGHT WITHIN REACH. WILL MONITOR FOR EFFECTIVENESS
--- NOTE | 2019-07-01 23:00 | NUR ---
EARLIER MEDS APPEAR EFFECTIVE. SLEEPING. RESPIRATIONS EASY. CALL LIGHT WITHIN REACH
[2019-07-02] VITALS: BP 140/55
--- NOTE | 2019-07-02 00:30 | NUR ---
SLEEPING. RESPIRATIONS EASY. VSS. IV FLUIDS MAINTAINED. CALL LIGHT WITHIN REACH
[2019-07-02] MEDS ORDERED: VITAMIN D31000 UNIT PO (00:38)
--- NOTE | 2019-07-02 04:34 | NUR ---
AWAKEN, REQUESTED AND RECEIVED NORCO PER PRN ORDER FOR C/O LEF THIP PAIN RATING A 10. CALL LIGHT WITHIN REACH. WILL MONITOR
--- NOTE | 2019-07-02 05:30 | NUR ---
EARLIER MEDS APPEAR EFFECTIVE. SLEEPING. RESPIRATIONS EASY.
--- NOTE | 2019-07-02 06:00 | NUR ---
IMMEDIATELY UPON AWAKENING FOR AM LABS, PATIENT REQUESTS "SOMETHING FOR PAIN" WHEN RN ENTERED ROOM TO ASSESS PATIENT, PATIENT ONCE AGAIN SLEEPING SOUNDLY. WILL MONITOR
[2019-07-02 06:33] LABS: HEMATOCRIT 26.2 % (37.0-47.0); HEMOGLOBIN 8.6 g/dl (12.0-16.0); MEAN CORPUSCULAR HGB 29.6 pg (27.0-31.0); MEAN CORPUSCULAR HGB CONC 32.8 g/dl (33.0-37.0); MEAN PLATELET VOLUME 10.6 fl (9.6-12.3); NUCLEATED RED BLOOD CELL 0.1 10*3/uL (0.0-0.0); NUCLEATED RED BLOOD CELL 0.4 % (0.0-0.0); PLATELET COUNT AUTOMATED 372 10*3/uL (130-400); RED BLOOD COUNT 2.91 10*6/uL (4.10-5.10); RED CELL DISTRI WIDTH 15.7 % (0-14.5); WHITE BLOOD COUNT 18.5 10*3/uL (4.8-10.8)
--- NOTE | 2019-07-02 06:40 | NUR ---
CONTINUES TO SLEEP
--- NOTE | 2019-07-02 07:30 | NUR ---
VITALS STABLE. A&O X 2. MILO. CAP REFILL < 3 SECONDS. SKIN TURGOR NON-TENTING. HEART SOUNDS NORMAL. RESPIRATIONS EASY AND REGULAR. PO2 98% ON R/A. LUNG SOUNDS DIMINISHED BUT CLEAR. ABDOMEN SOFT, NON-TENDER, NON-DISTENDED. BOWEL SOUNDS HYPOACTIVE X 4. SKIN WARM, PINK, DRY. L HIP DRESSING INTACT AND SATURATED- OUTLINED DRAINAGE. BOTH L WRIST AND L HAND IV SITE INTACT- NO SIGNS OF INFECTION. HANEY CATHETER PATENT FOR MIGUEL ÁNGEL URINE. PT STATES "PAIN IS 10/10." WILL CONTINUE TO ASSESS. AZALEA LEVINE SPCC
--- NOTE | 2019-07-02 07:35 | NUR ---
WENT IN 5 MINUTES LATER TO REASSESS PAIN. PT IS IN BED WITH EYES CLOSED- RESTING. RESPIRATIONS ARE EASY AND REGULAR. WILL CONTINUE TO ASSESS. AZALEA RODRIGUEZCC
--- NOTE | 2019-07-02 07:44 | NUR ---
PHYSICAL THERAPY Screen received, pt s/p hip surgery PT received will follow, thank you. Marcelle Broderick PT
[2019-07-02 07:50] LABS: TOTAL CELLS COUNTED 100 #CELLS
[2019-07-02 07:51] LABS: PLATELET SUFFICIENCY NORMAL (NORMAL); POLYCHROMASIA SLIGHT; SCHISTOCYTES FEW
--- NOTE | 2019-07-02 07:55 | NUR ---
TOOK OVER CARE OF PT. PT RESTING IN BED. RESPIRATIONS EASY AND UNLABORED ON ROOM AIR. NO S/S OF DISTRESS AT THIS TIME. CALL LIGHT IN REACH. SAFETY MEASURES IN PLACE.
[2019-07-02 08:00] VITALS: BP 144/70
--- NOTE | 2019-07-02 08:46 | NUR ---
PT COMPLAINED OF 10/10 PAIN IN L HIP. REQUESTED AND RECIEVED DILAUDID 2MG IV BEFORE PHYSICAL THERAPY. WILL CONTINUE TO ASSESS. EPHRAIM OCHOA RN
--- NOTE | 2019-07-02 09:00 | NUR ---
Metal Roofer in to see patient. She is short term at [facility] and plans to return there upon discharge. She states she has been working with physical therapy at [facility] with a walker. Denies O2. When medically stable she will be discharged to [facility]. hide mill worker following. She had an ORIF left hip 07/01.
--- NOTE | 2019-07-02 09:45 | NUR ---
REASSESSED PAIN. PT STATES "PAIN IS BETTER. 01/18". NO OTHER COMPLAINTS WILL CONTINUE TO ASSESS. AZALEA RODRIGUEZCC
--- NOTE | 2019-07-02 09:51 | NUR ---
JOHAN REID [id number] Please refer to the physician's history and physical for past medical history, comorbid conditions, and allergies. Diagnosis: CLOSED LEFT HIP FRACTURE Bala Score: 14,MODERATE RISK WOUND DESCRIPTIONS: PATIENT'S DRESSING TO LEFT HIP SATURATED WITH SEROSANGUOUS DRAINAGE. DR. RICHARDS AWARE PER IRMA BILLY. PER IRMA RICHARDS WILL BE UP TO THE FLOOR TO CHANGE DRESSING WITH 4X4s, ABDS AND TEGADREM TODAY. Surface the patient is resting on: Isoflex SKIN PREVENTION RECOMMENDATION: 1. Pressure redistribution support surface as appropriate 2. Elevate heels 3. Remove boots/TEDS every shift and reapply 4. Head of bed 30 degrees as tolerated 5. Assess nutrition and hydration 6. Manage moisture 7. Avoid the use of containment devices while in bed 8. Use absorptive products on surfaces limit layers of linens on bed 9. Turn and reposition every 1-2 hours in bed and every 1 hour in chair as tolerated 10. Weight shifts every 15 minutes while up in chair 11. Offloading with pillows or device to keep heels elevated off bed 12. Monitor skin at least every shift 13. Inspect under medical devices twice a day
--- NOTE | 2019-07-02 10:40 | NUR ---
Occupational THerapy evaluation completed on 5 with full eval to follow. Precautions include NWB LLE, L DANTE precautions, severe left hip pain, lethargy, parrish catheter,IV UE,fall risk; bed alarm,high complexity level 66775 via chart review, testing and evaluation. Upon arrival for evaluation, nursing was bathing patient. OT and PT assisted with bed mobility rolling onto right side w/ abd wedge and +3 assist to maintain and stabilize hip as rolling onto left side would be too painful for patient as she had severe left hip pain. Patient was able to move supine to sit with max +3 w/ abd wedge in place and maintaining hip precautions for flexion/abd. Patient demonstrated fair sit balance. She was not able to stand and appeared too lethargic to safetly stand within NWB LLE precautions and was assisted +3 sit to supine. Recommend OT per pOC and inpatient rehab v.s. SNF. Thank you. Abdi Ramos OTR/l
[2019-07-02 12:00] VITALS: BP 130/72
--- NOTE | 2019-07-02 12:07 | NUR ---
PT RESTING IN BED, EYES OPEN, PT IS TALKING WITH DAUGHTER IN LAW AND FRIEND. RESPIRATIONS EASY AND UNLABORED ON ROOM AIR. PT HAS NO COMPLAINTS AT THIS TIME. WILL CONTINUE TO MONITOR. CALL LIGHT IN REACH.
--- NOTE | 2019-07-02 12:08 | NUR ---
RESTING QUIETLY IN BED. A&O X3. SKIN WARM AND DRY. DENIES ALL PAIN AT THIS TIME. EPHRAIM OCHOA RN
--- NOTE | 2019-07-02 12:15 | NUR ---
PHYSICAL THERAPY Mellyal completed pt with moderate complexity level-[id number] PT to work on transfers, Standing with prog to amb as/if approp with NWB status of LLE, ROM/strengthening and hip precautions. Recommend SNF vs Inpatient rehab at discharge. Marcelle Broderick PT
--- NOTE | 2019-07-02 12:30 | NUR ---
NOTIFIED CASE MANAGEMENT THAT PT DAUGHTER IN LAW STATES THAT PT PREFERENCES FOR SNF ARE [facility] AND IF NOT ABLE TO GET INTO [facility], SHE IS WILLING TO GO BACK TO [facility].
--- NOTE | 2019-07-02 12:36 | NUR ---
RN ER notified of patient wanting to referred to [place], then back to [facility] if unable to go to [place]. Patient is Out of Network with [facility]. RN ER informed RN-Chinyere and Pneumatic Tool Operator Mago of this. -ANDERS Pierce
--- NOTE | 2019-07-02 12:38 | NUR ---
PT RESTING IN BED. RESPIRATIONS EASY AND REGULAR. PO2 98% R/A. PT COMPLAINED OF 10/10 PAIN IN L HIP. ADMINISTERED NORCO 1 TAB PO. NO OTHER COMPLAINTS AT THIS TIME. WILL CONTINUE TO ASSESS. AZALEA CHINO
--- NOTE | 2019-07-02 12:48 | NUR ---
OT NOTE Attempted to see pt this P.M. for OT session and upon arrival pt was under doctor care. Will check back at a later time/date and continue with POC as able. WINSOME Nichole/Bienvenido
--- NOTE | 2019-07-02 12:50 | NUR ---
PHYSICAL THERAPY Patient was receiving care from several physicians this pm when approached for therapy and unavailable at this time for treatment. Will continue per POC as able. Ishan Santos, HOT DIMPLING MACHINE OPERATOR
--- NOTE | 2019-07-02 13:19 | NUR ---
WIRE DRAWING SETTER to fax PT/OT Evals and will have PRECERT started. -ANDERS Pierce
--- NOTE | 2019-07-02 15:22 | NUR ---
PHYSICAL THERAPY CO-SIGN I approve of the Physical Therapy notes written above. Marcelle Broderick PT
[2019-07-02 16:00] VITALS: BP 122/48
--- NOTE | 2019-07-02 18:09 | NUR ---
PT GIVEN NORCO AT THIS TIME FOR C/O PAIN TO LEFT HIP. PT STATES THAT HER HIP IS "HURTING REALLY BAD". WILL MONITOR FOR EFFECTIVENESS. PT SITTING UP IN BED. RESPIRATIONS EASY AND UNLABORED ON ROOM AIR. CALL LIGHT IN REACH, SAFETY MEASURES IN PLACE.
--- NOTE | 2019-07-02 18:30 | NUR ---
SPOKE WITH DR CHAMBERLAIN REGARDING PT DIET. NEW ORDERS RECEIVED TO DISCONTINUE CLEAR LIQUID DIET AND TO START PT ON NO CONCENTRATED SWEETS DIET.
--- NOTE | 2019-07-02 18:45 | NUR ---
DR CHAMBERLAIN ASKS THIS NURSE TO NOTIFY DR RICHARDS AND ASK IF ELIQUIS 5 MG PO BID CAN BE RESUMED AT THIS TIME. WILL NOTIFY PHYSICIAN.
--- NOTE | 2019-07-02 18:55 | NUR ---
DR RICHARDS ANSWERING SERVICE NOTIFIED REGARDING QUESTION OF RESTARTING PT ELIQUIS. STABLE CLEANER STATES THAT THERE IS NO ORTHO COVERAGE UNTIL FRIDAY AND THAT THERE IS NO PHYSICIAN AVAILABLE TO GIVE ORDERS. DR CHAMBERLAIN NOTIFIED OF THIS AND GIVES ORDERS TO START PT ON ELIQUIS 5 MG BID PO TOMORROW MORNING. WILL PLACE APPROPRIATE ORDERS.
[2019-07-02 20:00] VITALS: BP 121/62
[2019-07-03] VITALS: BP 126/50
--- NOTE | 2019-07-03 | NUR ---
RESTING IN BED WITH EYES CLOSED. RESPIRATIONS EASY & UNLABORED ON ROOM AIR. CALL LIGHT WITHIN REACH.
--- NOTE | 2019-07-03 05:29 | NUR ---
MEDICATED WITH NORCO FOR C/O LEFT HIP PAIN.
[2019-07-03 06:32] LABS: HEMATOCRIT 26.6 % (37.0-47.0); HEMOGLOBIN 8.6 g/dl (12.0-16.0); MEAN CELL VOLUME 91.4 fl (81.0-99.0); MEAN CORPUSCULAR HGB 29.6 pg (27.0-31.0); MEAN CORPUSCULAR HGB CONC 32.3 g/dl (33.0-37.0); MEAN PLATELET VOLUME 10.6 fl (9.6-12.3); NUCLEATED RED BLOOD CELL 0.1 % (0.0-0.0); PLATELET COUNT AUTOMATED 381 10*3/uL (130-400); RED BLOOD COUNT 2.91 10*6/uL (4.10-5.10); WHITE BLOOD COUNT 21.5 10*3/uL (4.8-10.8)
[2019-07-03 07:09] LABS: BASOPHILS 1 % (0-1); OVALOCYTES FEW; PLATELET SUFFICIENCY NORMAL (NORMAL); POLYCHROMASIA SLIGHT; TOTAL CELLS COUNTED 100 #CELLS
[2019-07-03 07:10] LABS: SCHISTOCYTES FEW
[2019-07-03 08:00] VITALS: BP 101/82
--- NOTE | 2019-07-03 09:00 | NUR ---
PHYSICAL THERAPY PATIENT SEEN THIS AM FOR 1:1 TREATMENT IN ROOM. WITH COMPLAINTS OF PAIN THROUGHOUT SESSION AND WAS ONLY ABLE TO GET HER TO PERFORM BLE AROM , AAROM AND PROM WITH LIMITED PARTICIPATION. WORKED ON SITTING ON EOB WITH MAX ASSIST TO GET TO EOB AND MAINTAIN FOR 3 MINS WITH REMINDERERS OF HIP PRECAUTIONS. DID NOT ATTEMPT STANDING TODAY DUE TO SEVERITY OF PAIN AND LETHARGY OF PATIENT. WILL CONTINIUE WITH THERAPY SESSIONS IN EFFORT TO REGAIN ROM, STRENGTH AND FUNCTIONAL MOBILITY. STILL RECOMMEND SNF ON D/C FROM HERE. THANK YOU JESUS WORRELL PT
--- NOTE | 2019-07-03 09:01 | NUR ---
Medicated with dilaudid iv per prn order for complaints of pain to left hip and pt request for pain medication.
--- NOTE | 2019-07-03 09:48 | NUR ---
Notified [facility] of pt passing. States they will have nurse production repairer call us.
--- NOTE | 2019-07-03 10:00 | NUR ---
States that pain medication effective.
[2019-07-03 12:00] VITALS: BP 114/77
[2019-07-03 16:00] VITALS: BP 129/67
--- NOTE | 2019-07-03 16:23 | NUR ---
Medicated with norco per prn order for complaints of pain to left hip.
--- NOTE | 2019-07-03 16:49 | NUR ---
Dr. Pérez notified of elevated blood sugar of 248. Reviewed past blood sugars. States he will watch them and may adjust her routine insulin if needed.
--- NOTE | 2019-07-03 17:53 | NUR ---
Notified Dr. éPrez of poor output for daylight shift despite increased oral intake. Also notified that urine is very dark.
[2019-07-03 20:00] VITALS: BP 123/43
--- NOTE | 2019-07-03 20:00 | NUR ---
TOOK OVER CARE OF PT AT THIS TIME. PT RESTING IN BED,SLEEPING. RESPIRATIONS EASY AND UNLABORED. PT AWAKENS TO VERBAL STIMULI BUT DISORIENTED TO PLACE AND TIME. PT DENIES ANY SHORTNESS OF BREATH, NAUSEA. PT STATES THAT SHE IS HAVING "A LITTLE" PAIN TO HER LEFT HIP. DRESSING TO LEFT HIP C/D/I. WILL CONTINUE TO MONITOR FOR INCREASED PAIN.
--- NOTE | 2019-07-03 21:00 | NUR ---
PT LYING IN BED, SLEEPING AT THIS TIME.
[2019-07-03 22:32] VITALS: BP 112/58
[2019-07-04] VITALS: BP 118/49
--- NOTE | 2019-07-04 01:58 | NUR ---
PT RESTING IN BED AT THIS TIME. IV FLUIDS INFUSING INTO IV SITE IN LEFT WRIST. IV SITE IS PATENT. DRESSING C/D/I. RESPIRATIONS EASY AND UNLABORED. HANEY IN PLACE ORDERED, DRAINING DARK TEA COLOR URINE. WILL CONTINUE TO MONITOR. CALL LIGHT IN REACH.
--- NOTE | 2019-07-04 02:17 | NUR ---
24 HR chart check completed.
[2019-07-04 05:41] VITALS: BP 132/88
--- NOTE | 2019-07-04 05:53 | NUR ---
NOTIFIED DR CHAMBERLAIN THAT PT OUTPUT IS STILL POOR AFTER RECEIVING IV 700 CC 0.9NS THROUGHOUT SHIFT. PT HAS HAD 225 CC DARK TEA COLORED URINE IN HANEY THROUGHOUT ENTIRE SHIFT. PHYSICIAN ALSO NOTIFIED THAT PT UPPER/LOWER EXTREMITIES APPEAR EDEMATOUS AND THAT SHE HAS AUDIBLE EXPIRATORY WHEEZING. NEW ORDERS RECEIVED TO STOP IV FLUIDS AND TO GIVE PATIENT 1 MG BUMEX IV X 1 NOW.
--- NOTE | 2019-07-04 06:11 | NUR ---
PT GIVEN NORCO AT THIS TIME FOR LEFT HIP PAIN. WILL MONITOR FOR EFFECTIVENESS. CALL LIGHT IN REACH.
[2019-07-04 06:29] LABS: BASO % 0.2 % (0.0-1.0); EOS # 0.3 10*3/uL (0.0-0.4); HEMATOCRIT 24.1 % (37.0-47.0); HEMOGLOBIN 7.6 g/dl (12.0-16.0); LYMPH # 1.2 10*3/uL (1.3-4.4); LYMPH % 7.4 % (27.0-41.0); MEAN CELL VOLUME 93.8 fl (81.0-99.0); MEAN CORPUSCULAR HGB 29.6 pg (27.0-31.0); MEAN CORPUSCULAR HGB CONC 31.5 g/dl (33.0-37.0); MEAN PLATELET VOLUME 10.7 fl (9.6-12.3); MONO # 1.2 10*3/uL (0.1-1.0); MONO % 7.5 % (3.0-9.0); NEUT % 81.8 % (47.0-73.0); NUCLEATED RED BLOOD CELL 0.1 % (0.0-0.0); PLATELET COUNT AUTOMATED 309 10*3/uL (130-400); RED BLOOD COUNT 2.57 10*6/uL (4.10-5.10); RED CELL DISTRI WIDTH 15.9 % (0-14.5); WHITE BLOOD COUNT 15.9 10*3/uL (4.8-10.8)
--- NOTE | 2019-07-04 06:53 | NUR ---
PT STATES THAT NORCO IS EFFECTIVE AT THIS TIME.
[2019-07-04 06:59] LABS: CHLORIDE 106 mmol/L (98-107); POTASSIUM 3.5 mmol/L (3.5-5.1); SODIUM 139 mmol/L (136-145)
[2019-07-04 07:04] LABS: BUN 26 mg/dl (7-24); CREATININE 0.82 mg/dL (0.55-1.02)
[2019-07-04 08:00] VITALS: BP 129/52
--- NOTE | 2019-07-04 11:47 | NUR ---
PT MEDICATED WITH PRN NORCO FOR C/O LEFT HIP PAIN. WILL MONITOR. PT REFUSES LUNCH AT THIS TIME.
[2019-07-04 12:00] VITALS: BP 128/58
--- NOTE | 2019-07-04 14:00 | NUR ---
PHYSICAL THERAPY PATIENT SEEN TODAY FOR 1:1 SESSION WITH THIS PT. WAS FOUND TO BE LETHARGIC AGAIN TODAY WITH MAX CUES REQUIRED FOR ACTIVE PARTICIPATION. WAS ABLE TO DO BLE AROM; AAROM AND PROM WITH FAIR TOLERANCE WITH SOME COMPLAINTS OF PAIN THROUGHOUT AND LIMITED MOVEMENT NOTED IN OPERATIVE HIP. BED MOBILITY WAS MAX ASSIST FOR SUP<> SIT AND NOT ABLE TO COMPLETE STAND AT BEDSIDE DUE TO LETHARGY AND PAIN AND INABILITY TO MAINTAIN NWB. WILL CONTINUE WITH THERAPY SESSIONS IN EFFORT TO IMPROVE FUNCTIONAL MOBILITY AND GET HER TO SNF WHEN MEDICALLY STABLE. THANKS JESUS WORRELL PT
[2019-07-04 16:00] VITALS: BP 117/57
[2019-07-04 20:00] VITALS: BP 130/58
[2019-07-05] VITALS: BP 116/45
--- NOTE | 2019-07-05 02:41 | NUR ---
PATIENT RESTING IN BED WITH EYES CLOSED. AROUSES TO VERBAL STIMULI. DENIES COMPLAINTS OF PAIN OR DISCOMFORT. RESPIRATIONS REGULAR AND NON-LABORED. TRAPEZE TO BED TO ASSIST WITH TURNING. NON WEIGHT BEARING TO LEFT SIDE. SCD'S ON WITH SHARIFA HOSE. AND HEEL PROTECTORS. HANEY CATH PATENT DRAINING MIGUEL ÁNGEL URINE. WILL CONTINUE TO MONITOR. CALL LIGHT IN REACH.
--- NOTE | 2019-07-05 02:44 | NUR ---
24 HR chart check completed.
--- NOTE | 2019-07-05 07:30 | NUR ---
VITALS STABLE. A&O X 2. MILO. CAP REFILL < 3 SECONDS. SKIN TURGOR NON-TENTING. HEART SOUNDS NORMAL. RESPIRATIONS EASY AND REGULAR. PO2 98% R/A. LUNG SOUNDS DIMINISHED BUT CLEAR. ABDOMEN SOFT, NON-TENDER, NON-DISTENDED. BOWEL SOUNDS X 4. SKIN WARM, DRY AND INTACT. TRACE EDEMA IN BOTH HANDS. L HIP DRESSING DRY AND INTACT. L HAND AND L WRIST IV SITE BOTH INTACT- NO SIGNS AND SYMPTOMS OF INFECTION. HANEY CATHETER PATENT FOR MIGUEL ÁNGEL URINE. PT DENIES ANY PAIN. NO COMPLAINTS AT THIS TIME. WILL CONTINUE TO ASSESS. AZALEA LEVINE [facility]
--- NOTE | 2019-07-05 07:30 | NUR ---
PRECERT pending. CABINET ABRASIVE SANDBLASTER faxed updates to [facility]. Will need updated PT/OT Notes for PRECERT. -ANDERS Pierce
[2019-07-05 08:00] VITALS: BP 122/72
--- NOTE | 2019-07-05 08:20 | NUR ---
PHYSICAL THERAPY Patient seen this am 1:1 for therapy visit and was supine in bed upon therapist arrival. Patient identified by name / and presented with B heel protector boots, purple abductor wedge and is NWB on L LE. Patient reports 8/10 L hip pain and performed B LE therex, AAROM on R LE and tolerated PROM L LE with standard hip precautions x 10 reps each. Patient also transfers supiine to sit EOB with MAX A x 2, and tolerated static EOB sit x 7-8 minutes. SBA. Patient reported slight increase in pain c/o 9/10, L hip and returned to supine in bed MAX A x 2. Patient needed therapist assist for bed positioning to [facility] and remaineed with call light, tray table. purple abductor wedge, B heel protectors and bed alarm for safety. Will continue per POC as tolerated, total treatment time 17 minutes. Ishan Santos, INTEGRATION ASSISTANT
--- NOTE | 2019-07-05 08:30 | NUR ---
OT NOTE Pt was seen this A.M. 1:1 for 25 minute OT session. Upon arrival pt was supine in bed. Pt identified by name and and had complaints of 8/10 L hip pain. Pt transferred supine to sit EOB with maxA x 2 and use of overhead trapeze bar. Pt was re educated on hip precautions due to being unable to recall. While sitting EOB challenged pt's dynamic sitting balance while weight shifting, crossing midline, and reaching over all planes. Pt was able to maintain F- sitting balance throughout. Challenged pt's static sitting tolerance needed for enhanced endurance and core strengthening, pt was able to tolerate aprox 5 minutes before requesting to lay down. Pt then transferred sit to supine with maxA X 2. Throughout entire session pt required verbal and tactile prompts for follow commands and extra time required for processing commands. Pt was left supine in bed with call light in hand, tray table in place, abductor pillow in place, and bed alarm activated for safety. Continue with POC as able. AIDAN Nichole
--- NOTE | 2019-07-05 09:00 | NUR ---
Water Filterer Helper in to see patient. When medically stable and precert is obtained she will be discharged to [facility]. interior surface insulation worker following. She had an ORIF left hip 07/01.
--- NOTE | 2019-07-05 09:10 | NUR ---
PT COMPLAINING OF 10/10 PAIN AFTER PHYSCIAL THERAPY. WHEN ASKED WHERE PAIN IS PT STATES "ALL OVER." GIVEN NORCO 1 TAB PO. WILL CONTINUE TO ASSESS. AZALEA RODRIGUEZCC
[2019-07-05 09:13] VITALS: BP 133/61
--- NOTE | 2019-07-05 09:15 | NUR ---
DR RICHARDS IN TO SEE PT. SHE STATES PT HAS MENTAL STATUS CHANGE SHE IS SLOWER TO RESPOND THIS AM. VITAL OBTAINED, VSS. DR CHAMBERLAIN NOTIFIED, ORDERS RECEIVED FOR CBC AND DECREASE TO DURAGESIC PATCH.
[2019-07-05 09:34] LABS: BASO # 0.1 10*3/uL (0.0-0.1); BASO % 0.5 % (0.0-1.0); EOS # 0.4 10*3/uL (0.0-0.4); EOS % 2.6 % (1.0-4.0); HEMATOCRIT 26.5 % (37.0-47.0); HEMOGLOBIN 8.3 g/dl (12.0-16.0); LYMPH # 1.1 10*3/uL (1.3-4.4); LYMPH % 7.5 % (27.0-41.0); MEAN CELL VOLUME 93.6 fl (81.0-99.0); MEAN CORPUSCULAR HGB 29.3 pg (27.0-31.0); MEAN CORPUSCULAR HGB CONC 31.3 g/dl (33.0-37.0); MEAN PLATELET VOLUME 10.2 fl (9.6-12.3); MONO % 6.3 % (3.0-9.0); NEUT # 12.5 10*3/uL (2.3-7.9); NUCLEATED RED BLOOD CELL 0.1 % (0.0-0.0); PLATELET COUNT AUTOMATED 348 10*3/uL (130-400); RED BLOOD COUNT 2.83 10*6/uL (4.10-5.10); RED CELL DISTRI WIDTH 15.4 % (0-14.5); WHITE BLOOD COUNT 15.2 10*3/uL (4.8-10.8)
--- NOTE | 2019-07-05 09:43 | NUR ---
PRECERT has been obtained if patient is medically stable she can go to [facility] today. WOOD CAR BUILDER notified Glaze Supervisor Mago. -ANDERS Pierce
--- NOTE | 2019-07-05 10:10 | NUR ---
REASSESSED PT, ASKED HOW HER PAIN WAS SHE STATED "IT FEELS BETTER." PT NOW RESTING IN BED. RESPIRATIONS EASY AND REGULAR. WILL CONTINUE TO ASSESS. AZALEA CHINO
--- NOTE | 2019-07-05 11:30 | NUR ---
DRESSING ON LEFT HIP CHANGED. CLEANED WITH BETADINE. APPLIED 4X4S AND ABD PADS ALONG INCISION. NO REDNESS OR SWELLING. SMALL AMOUNT OF SEROUS DRAINAGE. TOLERATED WELL. AZALEA CHINO
[2019-07-05 12:00] VITALS: BP 132/68
--- NOTE | 2019-07-05 12:17 | NUR ---
Notified Dr. Pérez of obtaining precert for patient to be discharged to [facility] when medically stable.
[2019-07-05 16:00] VITALS: BP 135/51
--- NOTE | 2019-07-05 17:20 | NUR ---
DR CHAMBERLAIN CALLED AND NOTIFIED OF CRITICAL GLUCOSE OF 46. ORDERS RECEIVED.
[2019-07-05 20:00] VITALS: BP 111/43
[2019-07-06] VITALS: BP 143/77
--- NOTE | 2019-07-06 02:29 | NUR ---
PATIENT RESTING IN BED WITH EYES CLOSED. NO SIGNS OR SYMPTOMS OF DISTRESS NOTED. PATIENT HARD OF HEARING. RESPIRATIONS REGULAR AND NON-LABORED. HANEY CATH PATENT DRAINING YELLOW URINE. SWALLOWS PILLS WITHOUT DIFFICULTY. NON-WEIGHT BEARING TO LEFT SIDE. WILL CONTINUE TO MONITOR. CALL LIGHT IN REACH.
[2019-07-06 06:54] LABS: BASO # 0.1 10*3/uL (0.0-0.1); BASO % 0.5 % (0.0-1.0); EOS # 0.3 10*3/uL (0.0-0.4); EOS % 2.9 % (1.0-4.0); HEMATOCRIT 24.3 % (37.0-47.0); HEMOGLOBIN 7.6 g/dl (12.0-16.0); LYMPH # 1.3 10*3/uL (1.3-4.4); LYMPH % 10.8 % (27.0-41.0); MEAN CELL VOLUME 93.1 fl (81.0-99.0); MEAN CORPUSCULAR HGB 29.1 pg (27.0-31.0); MEAN CORPUSCULAR HGB CONC 31.3 g/dl (33.0-37.0); MEAN PLATELET VOLUME 10.9 fl (9.6-12.3); MONO # 1.1 10*3/uL (0.1-1.0); MONO % 9.7 % (3.0-9.0); NEUT # 8.8 10*3/uL (2.3-7.9); NEUT % 74.8 % (47.0-73.0); NUCLEATED RED BLOOD CELL 0.2 % (0.0-0.0); PLATELET COUNT AUTOMATED 312 10*3/uL (130-400); RED BLOOD COUNT 2.61 10*6/uL (4.10-5.10); RED CELL DISTRI WIDTH 15.3 % (0-14.5); WHITE BLOOD COUNT 11.7 10*3/uL (4.8-10.8)
[2019-07-06 07:45] LABS: BUN 15 mg/dl (7-24); CHLORIDE 105 mmol/L (98-107); POTASSIUM 3.7 mmol/L (3.5-5.1); SODIUM 139 mmol/L (136-145)
--- NOTE | 2019-07-06 07:46 | NUR ---
DR RICHARDS CALLED TO CHECK ON PT AND SHE WANTED PRIMARY TO KNOW OF HH RESULTS FROM TODAY. DR CHAMBERLAIN TO BE NOTIFIED.
--- NOTE | 2019-07-06 07:48 | NUR ---
DR CHAMBERLAIN CALLED AND NOTIFIED OF RESULTS. ORDERS RECEIVED FOR REPEAT CBC AND FECAL OCCULT.
[2019-07-06 08:00] VITALS: BP 121/52
--- NOTE | 2019-07-06 08:07 | NUR ---
Spoke to Lianet at Dr. Bishop's office regarding discharge to [facility] today. Awaiting response from Dr. Bishop. We have precert for [facility].
--- NOTE | 2019-07-06 08:12 | NUR ---
PRECERT has been obtained. PHARMACY TECHNICIAN INPATIENT faxed updates to [facility]. If patient is medically stable, patient can go to [facility] today. -ANDERS Pierce
[2019-07-06 08:41] LABS: BASO # 0.1 10*3/uL (0.0-0.1); BASO % 0.7 % (0.0-1.0); EOS # 0.3 10*3/uL (0.0-0.4); EOS % 2.7 % (1.0-4.0); HEMATOCRIT 23.7 % (37.0-47.0); HEMOGLOBIN 7.5 g/dl (12.0-16.0); LYMPH # 0.9 10*3/uL (1.3-4.4); LYMPH % 9.8 % (27.0-41.0); MEAN CELL VOLUME 93.3 fl (81.0-99.0); MEAN CORPUSCULAR HGB 29.5 pg (27.0-31.0); MEAN CORPUSCULAR HGB CONC 31.6 g/dl (33.0-37.0); MEAN PLATELET VOLUME 10.2 fl (9.6-12.3); MONO % 10.4 % (3.0-9.0); NEUT # 7.2 10*3/uL (2.3-7.9); NEUT % 74.9 % (47.0-73.0); PLATELET COUNT AUTOMATED 308 10*3/uL (130-400); RED BLOOD COUNT 2.54 10*6/uL (4.10-5.10); RED CELL DISTRI WIDTH 15.3 % (0-14.5); WHITE BLOOD COUNT 9.6 10*3/uL (4.8-10.8)
--- NOTE | 2019-07-06 09:00 | NUR ---
Patient Account Specialist in to see patient. She is being fed breakfast by the aide. No new needs or request at this time. When medically stable and precert is reobtained she will be discharged to [facility]. public health outreach worker following.
--- NOTE | 2019-07-06 09:08 | NUR ---
Patients Auth is only good for today. Dining Car Waiter/Waitress Mago has been notified. -ANDERS Pierce
--- NOTE | 2019-07-06 09:22 | NUR ---
DR VARGAS CALLED AND NOTIFIED OF [facility] CBC LAB. ORDERS FOR FECAL OCCULT.
--- NOTE | 2019-07-06 10:01 | NUR ---
OT NOTE Attempted to see pt this A.M. for OT session and upon arrival pt was supine in bed. Pt identified by name and on wristband. Pt was very slow to respond to any commands or questions directed towards her. Pt did state that her pain was a 9/10. When requesting to participate in therapy pt became tearful, was shaking her head no, and adamently stating "no, no, no, no." No treatment provided at this time and nurse notified. Will check back at a later time/date and continue with POC as able. WINSOME Nichole/Bienvenido
--- NOTE | 2019-07-06 10:10 | NUR ---
Lianet from Dr. Bishop's office called and stated patient is not ready for discharge per Dr. Bishop. Dr. Pérez notified.
--- NOTE | 2019-07-06 11:31 | NUR ---
PHYSICAL THERAPY PATIENT WAS SUPINE IN BED UPON THIS ROOM SERVICE SUPERVISOR ARRIVING IN THE PATIENT'S ROOM. PATIENT COMPLAINED OF SEVERE PAIN IN THE L HIP L LE. PATIENT DOES NOT WANT OT PARTICIPATE IN THERAPY SESSION THIS DATE DUE OT BEING IN SEVERE PAIN THIS AM. WILL CHECK BACK LATER WITH PATIENT IN THE AFTERNOON. DIAN GUSTAFSON ROOM SERVICE SUPERVISOR
[2019-07-06 12:00] VITALS: BP 136/55
--- NOTE | 2019-07-06 12:18 | NUR ---
PRECERT will need to be resubmitted. ANDERS contacted [facility] and it will restart the PRECERT tomorrow, once it returns it should be good through the weekend. -ANDERS Pierce
--- NOTE | 2019-07-06 14:08 | NUR ---
OT NOTE Reported to OTR pt's current condition of the following: being unable to follow commands, being unable to complete AROM, and having a face grimace with all ROM. Per supervising OTR consult, therapist is to begin ROM to BUE to increase and restore ROM needed for increased I in self care/functional tasks. Pt was seen this P.M. 1:1 for 28 minute OT session. Upon arrival pt was supine in bed. Pt identified by name and and had complaints of 10/10 pain all over. Pt presented to therapy with increased B hand edema. Completed edema control pumping exercises for 2 X 10 and placed BUE to be elevated above heart level. Pt was then requested to complete AROM over all planes at the wrist, elbow, and shoulder joints and pt was unable. PROM then completed to all joints over all planes of motion for 1 X 15 to increase and restore ROM needed for functional tasks. Pt was left supine in bed with call light in hand, tray table in place, and bed alarm activated for safety. Continue with rec d/C plan to inpatient rehab versus SNF. WINSOME Nichole/Bienvenido
--- NOTE | 2019-07-06 14:15 | NUR ---
PHYSICAL THERAPY Patient presented to therapy in supine with head of bed elevated and bed alarm activated. Patient nods her head up and down to give informed consent. Patient was identified by name and on wristband. Patient has abduction pillow in place and SCD PUMPS on operating. Patient agrees only to supine therapeutic exercises in the bed. Patient declines to sit up at EOB due to pain. Patient performed supine therapeutic exercises for strengthening to the bilateral LEs AAROM and PROM in order to improve patient's functional mobility and to increase ROM. Patient tolerated AAROM and PROM to the bilateral LEs with increased pain in all joints and with all movements in bilateral LEs. Patient was left in supine in bed with head of bed elevated, hip abduction pillow in place, and SCD PUMPS on bilateral LEs. Patient was left with the bed alarm activated and call light within reach. Patient was 1:1 with this PLATE SHEAR OPERATOR for 21 minutes total. DIAN GUSTAFSON PLATE SHEAR OPERATOR
--- NOTE | 2019-07-06 14:20 | NUR ---
LEFT HIP DRSG CHANGED. LARGE AMT OF SEROSANGINEOUS DRAINAGE NOTED TO OLD DRSG. NEW DRSG APPLIED PER ORDERS. HIP PRECAUTIONS MAINTAINED. CALL LIGHT IN REACH. WILL MONITOR
--- NOTE | 2019-07-06 14:24 | NUR ---
PT MEDICATED WITH NORCO FOR C/O LEFT HIP PAIN AND DULCOLAX SUPP FOR C/O CONSTIPATION. HIP PRECAUTIONS MAINTAINED. CALL LIGHT IN REACH. WILL MONITOR
--- NOTE | 2019-07-06 15:53 | NUR ---
ORAL TEMP 100.3, RECTAL TEMP 101.2. DR CHAMBERLAIN CALLED AND NOTIFIED. ORDERS RECEIVED FOR LABS IN THE AM AND CONTINUE TO MONITOR THE TEMP. ALSO NOTIFIED PT HASN'T HAD A DOCUMENTED BM SINCE ADMISSION. RECTAL SUPP GIVEN EARLIER. DR CHAMBERLAIN ASKED IF COLACE WAS ORDERED AND IT IS.
--- NOTE | 2019-07-06 15:54 | NUR ---
OCCUPATIONAL THERAPY CO-SIGN I approve of the Occupational Therapy notes written above. JOSEPH SIMMONS OTR/Bienvenido
[2019-07-06 16:00] VITALS: BP 1113/60
[2019-07-06 20:00] VITALS: BP 126/53
--- NOTE | 2019-07-06 21:30 | NUR ---
PATIENT TEMP DOWN TO 97.9 ORALLY AT THIS TIME. INCONTINENT OF LARGE AMOUNT OF LIQUID BM SOAKED INTO THE PAD. UNABLE TO OBTAIN STOOL FOR OCCULT. PATIENT RECEIVED A NEW DURAGESIC PATCH AT THIS TIME TO LEFT SHOULDER AREA. RESPIRATIONS REGULAR AND NON-LABORED. DENIES COMPLAINTS OF PAIN OR DISCOMFORT AT THIS TIME. HANEY CATH PATENT DRAINING TEA COLORED URINE AT THIS TIME. SWALLOWED PILLS WITHOUT DIFFICULTY. WILL CONTINUE TO MONITOR. CALL LIGHT IN REACH.
[2019-07-07] VITALS: BP 131/39
--- NOTE | 2019-07-07 04:53 | NUR ---
PATIENT DIAPHORETIC AT THIS TIME. BLOOD GLUCOSE 258. TEMP 100.8 RECTALLY. INCONTINENT OF LARGE LIQUID BOWEL MOVEMENT. CLEANED UP AND NORCO GIVEN. WILL CONTINUE TO MONITOR.
[2019-07-07 06:18] LABS: BUN 15 mg/dl (7-24); CHLORIDE 103 mmol/L (98-107); CREATININE 0.73 mg/dL (0.55-1.02); POTASSIUM 3.8 mmol/L (3.5-5.1); SODIUM 137 mmol/L (136-145)
[2019-07-07 06:32] LABS: BASO # 0.1 10*3/uL (0.0-0.1); BASO % 0.4 % (0.0-1.0); EOS # 0.1 10*3/uL (0.0-0.4); EOS % 0.4 % (1.0-4.0); HEMATOCRIT 25.1 % (37.0-47.0); HEMOGLOBIN 7.9 g/dl (12.0-16.0); LYMPH # 0.9 10*3/uL (1.3-4.4); LYMPH % 6.4 % (27.0-41.0); MEAN CELL VOLUME 91.9 fl (81.0-99.0); MEAN CORPUSCULAR HGB 28.9 pg (27.0-31.0); MEAN CORPUSCULAR HGB CONC 31.5 g/dl (33.0-37.0); MEAN PLATELET VOLUME 10.4 fl (9.6-12.3); MONO # 1.4 10*3/uL (0.1-1.0); MONO % 9.8 % (3.0-9.0); NEUT % 81.6 % (47.0-73.0); NUCLEATED RED BLOOD CELL 0.1 % (0.0-0.0); RED BLOOD COUNT 2.73 10*6/uL (4.10-5.10); RED CELL DISTRI WIDTH 15.2 % (0-14.5); WHITE BLOOD COUNT 14.6 10*3/uL (4.8-10.8)
[2019-07-07 07:05] LABS: PLATELET COUNT AUTOMATED 460 10*3/uL (130-400)
--- NOTE | 2019-07-07 07:12 | NUR ---
FARM EQUIPMENT TECHNICIAN faxed updates to [facility] to have PRECERT restarted once it returns it should be good until Friday07/11/19.- ANDERS Pierce
[2019-07-07 08:00] VITALS: BP 131/58
--- NOTE | 2019-07-07 08:00 | NUR ---
Urologic Surgeon in to see patient. No new needs or request at this time. When medically stable and precert is reobtained she will be discharged to [facility]. Dr. Bishop is watching her hgb, hgb today 7.9 and decreasing her pain medications. bunk house worker following.
--- NOTE | 2019-07-07 10:18 | NUR ---
OT NOTE Attempted to see pt this A.M. for OT session. Upon arrival pt was under Dr.Dickey teran. Therapist requested for pt to participate in therapy and pt would adamently shake her head no. All questions were answered via head nod, no verbal communication from pt. Will check back at a later time/date and continue with POC as able. WINSOME Nichole/Bienvenido
--- NOTE | 2019-07-07 10:25 | NUR ---
PHYSICAL THERAPY Patient was resting supine in bed this am when approached for therapy by CELL INSPECTOR and OT economic research assistant. Patient presented with increased Lethargic behaviour and would only Nod her head to yes / no questions with no verbal response. Patient Nodded yes to be seen this pm to allow her time to rest this morning and remained in bed with call light / bed alarm. Upon leaving room Dr Bishop arrived to see patient and was joined by patient's nurse. Dr Bishop informed Nurse she would like patient Logan transfer to sit up in bedside chair as this Therapist expressed concern of increased L hip Internal Rotation precaution with use of Logan sling. Dr Bishop advised Nurse to keep purple abductor wedge between legs throughout transfer. This CELL INSPECTOR advised his Supervising Therapist of Dr Bishop discussion / nursing logan transfer request and will continue per POC as able. Ishan Santos, CELL INSPECTOR
--- NOTE | 2019-07-07 10:30 | NUR ---
NURSE WAS NOTIFIED OF 2 OPEN ARIEAS ON PATIENTS LEFT LEG THAT WERE SEEPING ONTO THE PAPER PADS.
--- NOTE | 2019-07-07 10:31 | NUR ---
DR RICHARDS IN TO SEE PT. UPDATED ON STATUS R/T PT DROWSINESS, D/C OF DURAGESIC PATCH TODAY. PT HASN'T BEEN EATING AND PT HASN'T BEEN MOVING BOWELS, NOTIFIED THAT SUPPOSITORY WAS GIVEN YESTERDAY AND LIQUID STOOLS OVERNIGHT.
[2019-07-07 12:00] VITALS: BP 128/60
--- NOTE | 2019-07-07 12:30 | NUR ---
THERAPY IN TO WORK WITH WITH PT. PT WAS ATTEMPTING TO EAT. PT SAT UPRIGHT IN BED AND TOLERATING WITHOUT DIFFICULTY. CALL LIGHT IN REACH. WILL MONITOR
--- NOTE | 2019-07-07 12:40 | NUR ---
PHYSICAL THERAPY Patient was eating lunch this pm when approached for therapy and will continue per POC as able. Ishan Santos, BORING MILL SET UP OPERATOR
[2019-07-07 12:47] LABS: BILIRUBIN 2+ (NEGATIVE); BLOOD NEGATIVE (NEGATIVE); CLARITY SL CLOUDY (CLEAR); COLOR BROWN (YELLOW); GLUCOSE 1+ (NEGATIVE); KETONE 3+ (NEGATIVE); LEUKO ESTERASE NEGATIVE (NEGATIVE); NITRITE NEGATIVE (NEGATIVE); PH 5.5 (5.0-9.0); SPECIFIC GRAVITY 1.025 (1.005-1.030)
--- NOTE | 2019-07-07 12:47 | NUR ---
OT NOTE Attempted to see pt this P.M. for OT session and upon arrival pt was working with the nurse and patient aide for eating her lunch. Will check back at a later time/date and continue with POC as able. WINSOME Nichole/Bienvenido
--- NOTE | 2019-07-07 13:00 | NUR ---
NOTIFIED PT OF ORDERS RECEIVED TO ALIREZA PT INTO CHAIR. PT REFUSED. PT EDUCATED ON IMPORTANCE OF SITTING IN THE CHAIR. SHE STILL REFUSES. WILL MONITOR
--- NOTE | 2019-07-07 13:03 | NUR ---
PRECERT is only good until tomorrow or it will need to be restarted with updates. MANAGEMENT TRAINEE MARKETING notified Recovery Room Nurse Mago. -ANDERS Pierce
[2019-07-07 13:39] LABS: BACTERIA 2+; MUCOUS 1+; URIC ACID CRYSTALS 2+
--- NOTE | 2019-07-07 14:54 | NUR ---
PRECERT is only good until tomorrow and would need restarted. SUPERVISOR GATE SERVICES informed MARIAJOSE See who stated she would pass the information along in report. -ANDERS Pierce
--- NOTE | 2019-07-07 15:02 | NUR ---
PHYSICAL THERAPY CO-SIGN I approve of the Physical Therapy notes written above. Marcelle Broderick PT
--- NOTE | 2019-07-07 15:28 | NUR ---
OCCUPATIONAL THERAPY CO-SIGN I approve of the Occupational Therapy notes written above. Inna Potts, OTR/L
[2019-07-07 16:00] VITALS: BP 125/54
[2019-07-07 16:10] LABS: ALBUMIN 1.9 gm/dl (3.1-4.5); ALKALINE PHOSPHATASE 90 U/L (45-117); BUN 16 mg/dl (7-24); CHLORIDE 102 mmol/L (98-107); CREATININE 0.73 mg/dL (0.55-1.02); POTASSIUM 3.7 mmol/L (3.5-5.1); SGOT/AST 24 IU/L (3-35); SGPT/ALT 24 U/L (12-78); SODIUM 136 mmol/L (136-145); TOTAL PROTEIN 5.6 gm/dL (6.4-8.2)
--- NOTE | 2019-07-07 16:30 | NUR ---
PT HAD VISTOR, PT WAS VERY TALKATIVE AND MORE ALERT. PT ATE MOST OF DINNER AND INTAKE OF FLUIDS HAS IMPROVED. WILL MONITOR
--- NOTE | 2019-07-07 17:07 | NUR ---
ASKED PT AGAIN ABOUT TRANSFER TO CHAIR IN [facility] AND PT CONTINUES TO REFUSE.
--- NOTE | 2019-07-07 17:49 | NUR ---
PT INCONT FOR LARGE AMT OF LIQUID BROWN STOOL. INCONT CARE GIVEN. HIP PRECAUTIONS MAINTAINED.
--- NOTE | 2019-07-07 17:51 | NUR ---
DRSG TO LEFT HIP CHANGED PER ORDERS.
--- NOTE | 2019-07-07 18:26 | NUR ---
DR CHAMBERLAIN NOTIFIED THAT PT HAD 5 BEAT RUN OF VTACH, AND PT WAS ASYMPTOMATIC. ALSO THAT FECAL OCCULT WAS POSITIVE. ORDERS FOR CBC IN AM GIVEN.
[2019-07-07 20:00] VITALS: BP 147/59
--- NOTE | 2019-07-07 22:30 | NUR ---
NURSE WAS NOTIFIED OF 2 OPEN AND SEEPING PLACES ON THE PATIENTS LEFT LEG.
[2019-07-08] VITALS: BP 137/55
--- NOTE | 2019-07-08 01:00 | NUR ---
Patient resting quietly with no c/o discomfort. Respirations easy and regular. Vital signs stable. No overt distress. TU SANCHEZ
--- NOTE | 2019-07-08 01:22 | NUR ---
24HR CHART CHECK COMPLETED.
--- NOTE | 2019-07-08 03:00 | NUR ---
NURSING AUTOMOBILE DAMAGE FIELD APPRAISER NOTIFIED OF TWO NEW WOUNDS FOUND ON THE PT. CONTINUE TO MONITOR THE PT.
[2019-07-08 06:37] LABS: BASO # 0.1 10*3/uL (0.0-0.1); BASO % 0.4 % (0.0-1.0); EOS # 0.3 10*3/uL (0.0-0.4); EOS % 2.1 % (1.0-4.0); HEMOGLOBIN 7.7 g/dl (12.0-16.0); LYMPH # 1.5 10*3/uL (1.3-4.4); LYMPH % 9.5 % (27.0-41.0); MEAN CELL VOLUME 92.3 fl (81.0-99.0); MEAN CORPUSCULAR HGB 28.4 pg (27.0-31.0); MEAN CORPUSCULAR HGB CONC 30.8 g/dl (33.0-37.0); MEAN PLATELET VOLUME 10.3 fl (9.6-12.3); MONO # 1.4 10*3/uL (0.1-1.0); MONO % 8.9 % (3.0-9.0); NEUT # 12.1 10*3/uL (2.3-7.9); NEUT % 77.8 % (47.0-73.0); NUCLEATED RED BLOOD CELL 0.1 % (0.0-0.0); PLATELET COUNT AUTOMATED 508 10*3/uL (130-400); RED BLOOD COUNT 2.71 10*6/uL (4.10-5.10); WHITE BLOOD COUNT 15.5 10*3/uL (4.8-10.8)
--- NOTE | 2019-07-08 06:56 | NUR ---
NOTIFIED DR SERVIN OF THE PT'S NEW WOUNDS. INFORMED TO TELL THE SURGEON. CONTINUE TO MONITOR THE PT.
--- NOTE | 2019-07-08 06:59 | NUR ---
MESSAGE LEFT WITH ANSWERING SERVICE FOR DR RICHARDS. AWAITING CALL BACK TO INFORM OF TWO NEW WOUNDS AND OBTAIN WOUND CARE ORDERS. CONTINUE TO MONITOR THE PT.
[2019-07-08 08:00] VITALS: BP 120/70; BP 125/65
[2019-07-08] MEDS ORDERED: ENOXAPARIN30 MG/0.2 SC (08:46)
[2019-07-08 12:00] VITALS: BP 123/62; BP 125/65
[2019-07-08 16:00] VITALS: BP 121/67
[2019-07-08 20:00] VITALS: BP 120/61
[2019-07-08 21:14] VITALS: BP 132/60
--- NOTE | 2019-07-08 22:34 | NUR ---
DR SERVIN GIVES ORDERS TO RENEW PT NORCO AND DILAUDID PRN ORDERS FOR PAIN DUE TO THE 7 DAY AUTOMATIC DISCONTINUE. WILL MEDICATE PT WHEN AVAILABLE TO PULL.
[2019-07-09] VITALS: BP 133/85
[2019-07-09 07:58] LABS: BASO % 0.2 % (0.0-1.0); EOS # 0.2 10*3/uL (0.0-0.4); EOS % 1.1 % (1.0-4.0); HEMATOCRIT 24.5 % (37.0-47.0); HEMOGLOBIN 7.6 g/dl (12.0-16.0); LYMPH # 0.9 10*3/uL (1.3-4.4); LYMPH % 6.6 % (27.0-41.0); MEAN CELL VOLUME 92.5 fl (81.0-99.0); MEAN CORPUSCULAR HGB 28.7 pg (27.0-31.0); MEAN PLATELET VOLUME 9.7 fl (9.6-12.3); MONO % 7.4 % (3.0-9.0); NEUT # 11.6 10*3/uL (2.3-7.9); NEUT % 83.6 % (47.0-73.0); NUCLEATED RED BLOOD CELL 0.1 % (0.0-0.0); PLATELET COUNT AUTOMATED 524 10*3/uL (130-400); RED BLOOD COUNT 2.65 10*6/uL (4.10-5.10); RED CELL DISTRI WIDTH 15.2 % (0-14.5); WHITE BLOOD COUNT 13.9 10*3/uL (4.8-10.8)
[2019-07-09 08:00] VITALS: BP 136/82
[2019-07-09 08:23] LABS: BUN 13 mg/dl (7-24); CHLORIDE 101 mmol/L (98-107); CREATININE 0.64 mg/dL (0.55-1.02); IRON 20 ug/dL (50-170); POTASSIUM 3.2 mmol/L (3.5-5.1); SODIUM 136 mmol/L (136-145)
[2019-07-09 09:30] LABS: FERRITIN 226.5 ng/mL (10.0-291.0)
--- NOTE | 2019-07-09 09:30 | NUR ---
PHYSICAL THERAPY Patient seen this am 1:1 for therapy visit and was supine in bed upon therapist arrival. Patient identified by name / and reports a little pain L hip pain this morning, however unable to rate pain on 0-10 scale. Patient stated she slept pretty well last night and was more alert / talkative this session as compared to previous visits. Patient transfers supine to sit EOB with MOD A x 2, as patient able to assist therapist with R LE advance, but still needing L LE support secondary to L hip standard precautions. Patient tolerated static EOB sit x 4-5 minutes, SBA and was able to attempt sit to stand at bedside. Patient was MAX A x 2 sit to stand SUSTAIN ENGINEER, tolerating approx 20 seconds static stand, demonstrating approx 50% weight bearing on L LE. Patient was educated prior to transfer of NWB status on L LE and needed repeated v/c's throughout transfer. Patient voiced no new c/o's during standing ex and returned to supine in bed with MAX A x 2. Patient remained in bed under patient attendant Supervision for patient care, with bed alarm activated for safety. Patient did request pain pill at this time from nursing folloiwng treatment and will continue per POC as tolerated. Total treatment time 15 minutes. Ishan Santos, NICKEL OPERATOR
--- NOTE | 2019-07-09 09:37 | NUR ---
OT NOTE Pt was seen this A.M. 1:1 for 25 minute OT session. Upon arrival pt was supine in bed. Pt identified by name and and had complaints of pain which she was unable to rate on 0-10 pain scale. Pt transferred supine to sit EOB with modA X 2 for assist with BLE and UB. While sitting EOB challenged pt's static sitting tolerance needed for increased endurance and core strengthening. Pt was able to tolerate aprox 4 minutes. While sitting EOB pt was educated on NWB status to E, pt verbalizedunderstanding. Pt then completed sit to stand from bed level with use of w/w for UE support and maxA X 2. Challenged pt's static standing tolerance needed for increased I in functional transfers, pt was able to maintain aprox 25 seconds with maxA x 2 before sitting due to pain and fatigue. Throughout pt was 50% compliant with NWB status to LLE. Pt then transferred back into bed sit to supine with maxA X 2 due to increased fatigue. Once returning to bed pt stated "go get my nurse for a pain pill" pt unable to rate pain on a 0-10 pain scale at this time. Pt was left supine in bed under patient attendant care for patient care. Bed alarm activated for safety. Overall pt was much more alert and verbal this session compared to previous treatments. Continue with rec D/C plan to inpatient rehab versus SNF. WINSOME Nichole/Bienvenido
[2019-07-09 10:29] LABS: ABG BASE EXCESS 5.2 mmol/L (-2.0-2.0); ABG HCO3 27.9 mmol/l (22-26); ABG O2 SATURATION 97.6 % (95-97); ARTERIAL BLOOD GAS PCO2 31.9 mmHg (35-45); ARTERIAL BLOOD GAS PH 7.547 (7.35-7.45); ARTERIAL BLOOD GAS PO2 85.6 mmHg (80-90)
--- NOTE | 2019-07-09 10:54 | NUR ---
[facility].
[2019-07-09 12:00] VITALS: BP 114/52
--- NOTE | 2019-07-09 12:00 | NUR ---
NORCO GIVEN EARLIER EFFECTIVE.
--- NOTE | 2019-07-09 14:40 | NUR ---
DRESSING HAS BEEN CHANGED AND DR RICHARDS HAS ROUNDED.
--- NOTE | 2019-07-09 15:15 | NUR ---
PHYSICAL THERAPY CO-SIGN I approve of the Physical Therapy notes written above. Marcelle Broderick PT
[2019-07-09 16:00] VITALS: BP 116/55
--- NOTE | 2019-07-09 16:03 | NUR ---
ULTRASOUND BEING PERFORMED AT BEDSIDE.
--- NOTE | 2019-07-09 16:36 | NUR ---
PATIENT BLOOD SUGAR 65. FED CUP OF FRUIT PEANUT BUTTER CRACKERS AND ORANGE JUICE.
--- NOTE | 2019-07-09 18:49 | NUR ---
DR. SERVIN AWARE OF OCCLUSIVE DVT. INCREASE ELIQUIS AND D/C LOVENOX.
[2019-07-09 20:00] VITALS: BP 122/64
--- NOTE | 2019-07-09 21:49 | NUR ---
PATIENT CONFUSED AND REFUSING MEDICATIONS AT THIS TIME STATING "LEAVE ME ALONE" AND "NO, I DONT THINK I WILL TAKE ANY PILLS THEY TASTE BAD" ENCOURAGED MANY TIMES TO TAKE MEDICATIONS WITH NO SUCCESS. WILL TRY BACK.
--- NOTE | 2019-07-09 22:00 | NUR ---
PATIENT CONTINUES TO REFUSE MEDICATIONS. TAKES ELIQUIS ONLY IN APPLESAUCE WITH A SIP OF WATER.
[2019-07-10] VITALS: BP 126/64
--- NOTE | 2019-07-10 03:49 | NUR ---
Shift chart check completed.
--- NOTE | 2019-07-10 06:09 | NUR ---
PATIENT ALERT THIS MORNING, STATES PAIN TO LT HIP IS 10/10. NORCO PROVIDED. PO MORNING MEDICATIONS TAKEN WITH EASE. BED IN LOWEST, LOCKED POS, CALL LIGHT IN REACH, BED ALARM MAINTAINED.
[2019-07-10 08:00] VITALS: BP 102/56
--- NOTE | 2019-07-10 08:30 | NUR ---
PT UP IN CHAIR AT BEDSIDE WITH 2 ASSIST. ABDUCTOR PILLOW AND SCD'S ON. PT VOICES NO NEEDS AT THIS TIME. CALL LIGHT IN REACH.
--- NOTE | 2019-07-10 11:03 | NUR ---
DR RICHARDS ROUNDED AND SEEN PT. NOTIFIED AT THIS TIME OF LEFT LEG DVT. NO NEW ORDERS.
--- NOTE | 2019-07-10 11:03 | NUR ---
DR RICHARDS ROUNDED AND SEEN PT.
[2019-07-10 12:00] VITALS: BP 115/45
--- NOTE | 2019-07-10 12:20 | NUR ---
PHYSICAL THERAPY Patient sitting up in bedside chair upon arrival with hip ABD wedge in place. Patient reports pain in (L) hip 12/18 this date. Patient reports feeling fatigued from transfer into chair but was agreeable to perform ther-ex. Patient able to verify and verbally state hip precautions. Patient completed seated B LE ther-ex, for strength, ROM and endurance: ankle PF/DF, glute sets, quad sets, LAQs 2x10 reps (AAROM on L during LAQ). Cues for improved ROM, technique and progression of exercises. MACHINE SET UP OPERATOR PAPER GOODS monitoring patient tolerance throughout with no increase in pain post exercises. Intermittent rest breaks provided. Patient seated in bedside chair at session end with call light and tray table within reach. MACHINE SET UP OPERATOR PAPER GOODS re-applied hip ABD wedge. Beverly Jimenes, MACHINE SET UP OPERATOR PAPER GOODS
--- NOTE | 2019-07-10 14:49 | NUR ---
IV started right hand with #24 protective cath after 1 attempts. Site prepped with Chloroprep. Sterile dressing applied. Patient tolerated procedure well. HEPLOCKED AT THIS TIME. ANTHONY CHENEY
[2019-07-10 16:00] VITALS: BP 122/51
--- NOTE | 2019-07-10 16:13 | NUR ---
ASSISTED PT BACK TO BED, X2 ASSIST. PT TOLERATED WELL.GOWN CHANGED AND DINNER ORDER TAKEN AT THIS TIME.PT VOICES NO OTHER NEEDS . BED ALARM INTACT.ABDUCTOR PILLOW,SCD'S AND PILLOW BOOTS IN PLACE.CALL LIGHT IN REACH.
--- NOTE | 2019-07-10 17:49 | NUR ---
Patient resting quietly with no c/o discomfort. Respirations easy and regular on 3LNC. Vital signs stable. No overt distress. ANTHONY CHENEY
--- NOTE | 2019-07-10 18:37 | NUR ---
Patient resting quietly with no c/o discomfort. Respirations easy and regular. Vital signs stable.Bed alarm intact. No overt distress.Call light in reach. ANTHONY CHENEY
--- NOTE | 2019-07-10 19:50 | NUR ---
NORCO PROVIDED PER PT REQUEST FOR C/O LEFT HIP PAIN RATED 10/10. WILL MONITOR. CALL LIGHT IN REACH.
[2019-07-10 20:00] VITALS: BP 129/58
--- NOTE | 2019-07-10 21:33 | NUR ---
MEDICATION EFFECTIVE FOR PAIN PER PT.
[2019-07-11] VITALS: BP 102/62
--- NOTE | 2019-07-11 01:25 | NUR ---
DRESSING CHANGED TO LEFT HIP. PATIENT TOLERATED WELL.
--- NOTE | 2019-07-11 08:11 | NUR ---
DR SERVIN ROUNDED AND ORDERS RECIEVED.
[2019-07-11 12:00] VITALS: BP 121/59
--- NOTE | 2019-07-11 12:33 | NUR ---
NOTIFIED DR SERVIN PT IV HAD BLOWN AGAIN FOLLOWING IRON INFUSION. WE WERE UNABLE TO GAIN IV ACCESS AFTER MULTIPLE ATTEMPTS. ORDERES RECIEVED. DR SERVIN OK WITH PT NOT HAVING IV ACCESS.
--- NOTE | 2019-07-11 14:34 | NUR ---
NORC0 5/325 MG GIVEN FOR C/O GENERALIZED PAIN,05/20.
[2019-07-11 16:00] VITALS: BP 127/56
--- NOTE | 2019-07-11 19:01 | NUR ---
NORCO 5/325 MG GIVEN FOR C/O LEFT HIP PAIN,04/20.
[2019-07-11 20:00] VITALS: BP 113/46
[2019-07-12] VITALS: BP 120/55
--- NOTE | 2019-07-12 06:10 | NUR ---
NORCO GIVEN PER PT REQUEST FOR PAIN. DRESSING TO LEFT HIP CHANGED PER ORDERS. DRESSING COMPLETELY SATURATED IN SEROUS FLUID. SURGICAL INCISION WELL APPROXIMATED WITH MABLE. PT TOLERATED WELL. BED IN LOW POS. CALL LIGHT IN REACH.
[2019-07-12 08:00] VITALS: BP 110/60
--- NOTE | 2019-07-12 08:00 | NUR ---
VITALS STABLE. MILO. A&OX3. LUNGS CLEAR THROUGHOUT. HEART SOUNDS NORMAL. ACTIVE BS X4, NON TENDER NON DISTENDED. CAP REFILL <3 SECONDS. SKIN TURGUR NON TENTING, WARM & DRY. DRESSING ON LEFT HIP INTACT, NO DRAINAGE. DRESSING ON LEFT THIGH INTACT, NO DRAINAGE. NO COMPLAINTS OF PAIN AT THIS TIME. WILL CONTINUE TO ASSESS. MICHAEL GARCIACC
--- NOTE | 2019-07-12 08:15 | NUR ---
PHYSICAL THERAPY Patient seen this am 1;1 for therapy visit and was supine in bed following visit from student nurse upon therapist arrival. Patient identified by name / and was alert / very talkative this session. Patient reports 8/10 L hip pain prior to transfering supine to sit EOB with MIN A. Patient reviewed standard hip precautions transfering sit to stand, MOD A x 2, and remains NWB on L LE, however was pretty much WBAT throughout entire transfer including SPT to bedside chair, MOD A x 2. Patient demonstrated improved upright posture with increased willingness to participate and remained in bedside chair with purple abductor wedge. Patient reports slight decrease in L hip pain 6/10 and remained with call light, tray table, telephone and body alarm for safety. Will continue per POC as tolerated, total treatment time 14 minutes. Ishan Santos, PARTY PLANNER
--- NOTE | 2019-07-12 08:30 | NUR ---
OT NOTE Pt was seen this A.M. 1:1 for 30 minute OT session. Upon arrival pt was supine in bed. Pt identified by name and and had complaints of 8/10 L hip pain. Pt was much more alert, very verbal, and willing to participate this date. Pt transferred supine to sit EOB with modA X 1 for assist with BLE. Upon inital rise to the EOB pt had complaints of feeling dizzy, educated pt on visual fixation techniques and after aprox 20 seconds pt stated she felt better. While sitting EOB challenged pt's dynamic sitting balance needed for increased I and enhanced safety in self care tasks. While weight shifting, crossing midline, and reaching over all planes pt was able to maintain F- sitting balance requiring Anton/UE support. Pt completed sit to stand from bed level with modA X 2 and use of w/w for UE support. Challenged pt's static standing tolerance needed for increased I in self care tasks and functional transfers. Pt was able to tolerate aprox 30-40 seconds before having complaints of feeling dizzy and needing to sit. Throughout pt required constant verbal prompts for maintaining NWB status to LLE, pt continued to be non compliant placing WBAT through her LLE. Sit to stand then completed from the EOB followed by standing pivot from the EOB to the recliner with modA X 2 and use of w/w. Pt was left sitting upright in the recliner with call light in hand, trya table in place, body alarm activated for safety, and abductor pillow in place. Pt's resting pain level reported at 6/10 in her L hip. Continue with rec D/C plan to inpatient rehab versus SNF. WINSOME Nichole/Bienvenido
--- NOTE | 2019-07-12 09:02 | NUR ---
UNABLE TO VIEW WOUNDS AT THIS TIME. PATIENT IS SITTING UP IN CHAIR EATING BREAKFAST. NURSE STATED SHE WOULD NOTIFY WHEN PATIENT IS BACK IN BED.
--- NOTE | 2019-07-12 09:47 | NUR ---
PT RESTING COMFORTABLY IN CHAIR WATHCHING TV. NO COMPLAINTS AT THIS TIME. WILL CONTINUE TO ASSESS. MATTI GARCIA
--- NOTE | 2019-07-12 11:05 | NUR ---
PHYSICAL THERAPY Patient seen this am for second therapy visit and was sitting up in bedside chair following OT assistant office manager visit. Patient identified by name / and requested transfer back to bed. Patient reports increased L hip stiffness / pain from sitting for a few hours and transfers sit to stand MOD A x 2. Patient needed v/c for proper hand placement, including improved transfer technique with use of wh walker standing support. Patient completed SPT to EOB sit, multiple v/c's to maintain NWB status on L LE. Patient demonstrated increased difficulty with R LE pivot and was pretty much WBAT on L LE to safely complete transfer. Patient reported no increase in pain folloiwng pivot transfer and returned to supine in bed with MOD A x 2 for LE positioning. Patient instructed on overhead trapeze bar for assist in bed mobility / positioning, however was unable to demonstrate due to c/o of increased fatigue. Patient remained in bed with call light, tray table, purple adductor wedge, LE compression pump, B heel protectors and bed alarm. Will continue per POC as tolerated, total treatment time 14 minutes. Ishan Santos, SUGGESTION CLERK
--- NOTE | 2019-07-12 11:25 | NUR ---
OT NOTE Pt was seen this A.M. 1:1 for second OT session consisting of 25 minutes. Upon arrival pt was sitting upright in the recliner. Pt identified by name and and had complaints of 7/10 L hip pain and cramping in her stomach, nurse notified. While sitting upright in the recliner pt completed BUE towel exercises over all planes of motion for 1 X 10 to increase UE strength needed for increased I in self care tasks and functional transfers. Pt then completed sit to stand transfer from chair level with modA X 2 and use of w/w for UE support. Pt then completed standing pivot from the chair to the EOB with modA and use of w/w for UE support. Pt then transferred back into bed sit to supine with maxA X 2. Pt was left supine in bed with call light in hand, tray table in place, abductor pillow in place, and bed alarm activated for safety. Continue with rec D/C plan to inpatient rehab versus SNF. WINSOME Nichole/Bienvenido
--- NOTE | 2019-07-12 12:06 | NUR ---
PT COMPLAINS OF RADIATING PAIN TO THE LEFT HIP 10/10 ON PAIN SCALE. NORCO GIVEN PO PER PT REQUEST. MICHAEL GARCIACC
[2019-07-12 12:12] VITALS: BP 130/60
--- NOTE | 2019-07-12 12:13 | NUR ---
CREDIT OR LOANS OFFICER faxed updates to [facility] to have PRECERT restarted. -ANDERS Pierce
--- NOTE | 2019-07-12 13:06 | NUR ---
NORCO EFFECTIVE. PAIN 0/10. PT RESTING QUIETLY WITH EYES CLOSED. SEAN HARTMAN, JONATHANNRCC
--- NOTE | 2019-07-12 13:36 | NUR ---
Spoke to Lianet in Dr. Bishop's office regarding if patient is medically stable for discharge to [facility]. Dr. Pérez notified. Waiting on precert for [facility]. knockup worker following.
--- NOTE | 2019-07-12 14:10 | NUR ---
Notified Dr. Pérez that patient did not void all day. She was bladder scanned for 990, had an incontinent episode and had a PVR of 972. See new orders.
--- NOTE | 2019-07-12 15:20 | NUR ---
Patient was straight cathed for 1100 of cola colored urine. Patient tolerated well.
[2019-07-12 16:00] VITALS: BP 120/62
--- NOTE | 2019-07-12 18:11 | NUR ---
PT C/O 8/10 PAIN IN LEFT HIP AT THIS TIME AND REQUESTING PAIN MEDICATION. GIVEN PER ORDER. WILL MONITOR.
--- NOTE | 2019-07-12 19:00 | NUR ---
ASSUMED CARE FOR THIS PT AT THIS TIME. NO C/O VOICED. PT RESTING QUIETLY IN BED W/ABD PILLOW IN PLACE. DRSG TO LEFT HIP DRY/INTACT. BED ALARM ON W/CALL LIGHT IN REACH.
[2019-07-12 20:00] VITALS: BP 121/58
--- NOTE | 2019-07-12 21:46 | NUR ---
MEDICATED W/NORCO FOR C/O LT HIP PAIN 03/20. DRSG DRY AND INTACT. CALL LIGHT IN REACH.
[2019-07-13] VITALS: BP 131/53
--- NOTE | 2019-07-13 03:30 | NUR ---
DRSG TO LEFT HIP INCISION AND 3 SKIN TEARS TO LT HIP/THIGH CHANGED ORDERED. 61 MABLE COUNTED. INCISION APPEARS WELL APPROXIMATED. MID INCISION DRAINING A VERY MODERATE AMOUNT OF LIGHT JACOME DRAINAGE. PT TOLERATED DRSG CHANGE WELL.
--- NOTE | 2019-07-13 03:35 | NUR ---
PT MEDICATED W/NORCO FOR C/O LT HIP PAIN 05/20. PT REPOSITIONED FOR COMFORT.
--- NOTE | 2019-07-13 04:02 | NUR ---
JOHAN REID [id number] Please refer to the physician's history and physical for past medical history, comorbid conditions, and allergies. Diagnosis: CLOSED LEFT HIP FRACTURE Bala Score: 14,MODERATE RISK WOUND DESCRIPTIONS: Wound Number: 1 Location of the wound: left hip Type of wound: surgical Size: 47.0cm x 0.1cm x <0.1cm Tunneling: none Undermining: none Sinus Tract: none Presence of Exudate: Serosanguineous Amount: Heavy Color: [place] Odor: None Periwound Skin Appearance: Normal Wound edges: approximated with 61 brian Pain (associated with wound): tender at time of assessment prn medicaition given per nurse caring for patient How does patient state this happened? pt stated she had surgery last month Wound Number: 2 Location of the wound: lle outer aspect of knee Thickness: Partial Size: 2.0cm x 2.7cm x 0.1cm Tunneling: none Undermining: none Sinus Tract: none Presence of Exudate: none Amount: None Color: pink Odor: None Periwound Skin Appearance: Normal Wound edges: approximated Pain (associated with wound): none at time of assessment How does patient state this happened? pt unsure how this happened Wound Number: 3 Location of the wound: left lateral lower back proximal Thickness: Partial Size: 0.5cm x 2.5cm x 0.1cm Tunneling: none Undermining: none Sinus Tract: none Presence of Exudate: none Amount: None Color: pink Odor: None Periwound Skin Appearance: Normal Wound edges: approximated Pain (associated with wound): none at time of assessment How does patient state this happened? pt unsure how this happened Wound Number: 4 Location of the wound: left lateral lower back distal Thickness: Partial Size: 0.6cm x 1.5cm x 0.1cm Tunneling: none Undermining: none Sinus Tract: none Presence of Exudate: none Amount: None Color: pink Odor: None Periwound Skin Appearance: Normal Wound edges: approximated Pain (associated with wound): none at time of assessment How does patient state this happened? pt unsure how this happened Surface the patient is resting on: Isoflex SKIN PREVENTION RECOMMENDATION: 1. Pressure redistribution support surface as appropriate 2. Elevate heels 3. Remove boots/TEDS every shift and reapply 4. Head of bed 30 degrees as tolerated 5. Assess nutrition and hydration 6. Manage moisture 7. Avoid the use of containment devices while in bed 8. Use absorptive products on surfaces limit layers of linens on bed 9. Turn and reposition every 1-2 hours in bed and every 1 hour in chair as tolerated 10. Weight shifts every 15 minutes while up in chair 11. Offloading with pillows or device to keep heels elevated off bed 12. Monitor skin at least every shift 13. Inspect under medical devices twice a day WOUND TREATMENT RECOMMENDATIONS: Continue dressing per Dr. Bishop.
--- NOTE | 2019-07-13 07:35 | NUR ---
PT INCONTINENT OF URINE THIS AM.
[2019-07-13 08:00] VITALS: BP 128/60
--- NOTE | 2019-07-13 08:00 | NUR ---
Notified Dr. Coronel awaiting precert for discharge to [facility]. dobie worker following.
--- NOTE | 2019-07-13 08:10 | NUR ---
PHYSICAL THERAPY Patient seen this am 1;1 for therapy visit and was just awakening supine in bed upon therapist arrival. Patient identified by name / and reports L hip pain, but unable to rate on 0-10 pain scale. Patient educated on standard hip precautions and remains NWB on L LE. Patient transfers supine to sit EOB with MIN A x 2, tolerating several minutes static EOB sit SBA. Patient performed sit to stand transfer MOD A X 2, use of wh walker standing support and demonstates PWB on L LE. Patient received repeated v/c's to maintain NWB on L LE but due to increased fatigue in completing SPT to bedside chair, patient unable to maintain NWB status. Patient remained in bedsie chair reporting no new c/o's in semi reclined position, with purple abductor wedge, call light, tray table and body alarm. Will continue per POC as tolerated, total treatment time 14 minutes. Ishan Santos, MD PHYSICIAN DERMATOLOGIST
--- NOTE | 2019-07-13 08:10 | NUR ---
OT NOTE Pt was seen this A.M. 1:1 for 20 minute OT session. Upon arrival pt was supine in bed. Pt identified by name and and had complaints of L hip pain which she did not rate on 0-10 pain scale. Pt transferred supine to sit EOB with Anton X 2. Sit to stand completed from bed level with modA X 2 and use of w/w for UE support. Challenged pt's static standing tolerance needed for increased I in self care tasks and functional transfers, pt was able to tolerate aprox 2 minutes at a time before sitting due to fatigue and pain. Standing pivot completed from the EOB to the recliner with Anton and use of w/w. Pt was left sitting upright in the recliner with call light in hand, tray table in place, body alarm activated for safety, and abductor pillow in place. Continue with rec D/C plan to inpatient rehab versus SNF. WINSOME Nichole/Bienvenido
--- NOTE | 2019-07-13 10:31 | NUR ---
[place] given per patient [id number] for c/o pain rated 8/10 in left hip. Will monitor.
--- NOTE | 2019-07-13 11:15 | NUR ---
Tamara effective. Patient satisfied.
--- NOTE | 2019-07-13 12:45 | NUR ---
PHYSICAL THERAPY Patient seen this pm 1:1 for therapy visit and was still sitting up in bedside chair since this morning upon therapist arrival. Patient identified by name / and requested transfer back to bed due to increased LE stiffness from prolonged sitting. Patient able to perform several heel raises and LAQ prior to completing sit to stand transfer from low chair surface, MOD A x 2, with v/c to maintain standard L hip precautions. Patient demonstrated increased difficulty with SPT to EOB sit, use of wh walker standing support, MOD A x 2. Patient admitted to B on L LE even though she is aware of NWB status. Patient fatigues quickly and needed therapist MAX encouragement to complete safe transfer for fear of falling. Patient returned to supine in bed and remained with call light, tray table, telephone, purple abduction wedge and bed alarm for safety. B compression pumps also applied upon therapy completion. Will continue per POC as tolerated, total treatment time 14 minutes. Ishan Santos, FOREIGN LANGUAGE TEACHER
--- NOTE | 2019-07-13 12:50 | NUR ---
OT NOTE Pt was seen this P.M. 1:1 for second OT session consisting of 15 minutes. Upon arrival pt was supine in bed. Pt identified by name and and had no complaints at this time. Pt completed sit to stand from chair level with modA X 2 and use of w/w for UE support. Standing pivot completed form the recliner to the EOB with Anton and use of w/w. There she transferred sit to supine with moDA X 2. There she was left with call light in hand, tray table in place, and bed alarm activated for safety. Continue with rec D/C plan to SNF. WINSOME Nichole/Bienvenido
--- NOTE | 2019-07-13 14:24 | NUR ---
PRECERT obtained. DRIER TENDER NAPHTHALENE spoke with Technical Sales Representatives Mago. DRIER TENDER NAPHTHALENE spoke with MARIAJOSE Yi. DRIER TENDER NAPHTHALENE spoke with Sheldon Simons to arrange a 5pm transfer to [facility]. DRIER TENDER NAPHTHALENE notified MARIAJOSE Santoyo of time. DRIER TENDER NAPHTHALENE spoke with No avila daughter in law. She is aware of discharge and transport time. DRIER TENDER NAPHTHALENE will fax discharge orders to [facility]. -ANDERS Pierce
--- NOTE | 2019-07-13 15:50 | NUR ---
Notified Dr. Pérez that patient was accepted to [facility]. See new orders.
[2019-07-13 16:00] VITALS: BP 128/68
--- NOTE | 2019-07-13 16:28 | NUR ---
[place] given per patient request for c/o surgical pain. Will monitor.
--- NOTE | 2019-07-13 17:15 | NUR ---
Tamara effective. Patient satisfied.
--- NOTE | 2019-07-13 18:02 | NUR ---
Discharge instructions reviewed with patient/family. Patient receptive and verbalizes understanding. Follow-up care arranged. Written instructions given to patient/family. Patient was wheeled from unit by EMT's with all personal belongings accounted for. Patient was given a snack before discharge. Blood sugar was rechecked, level was 124. GIOVANNI LOJA J
--- NOTE | 2019-07-14 07:46 | NUR ---
OCCUPATIONAL THERAPY CO-SIGN I approve of the Occupational Therapy notes written above. JOSEPH SIMMONS OTR/Bienvenido
--- NOTE | 2019-07-15 07:51 | NUR ---
PHYSICAL THERAPY CO-SIGN I approve of the Physical Therapy notes written above. Marcelle Broderick PT
== END 2019-07-13 18:31 | disposition other institution (70) | DRG 480 ==
LOC: ED 16:34 → 5E 18:49 → EDHOLD 18:49 → 5E 19:12
PROVIDERS: Anesthesiology; Emergency Medicine; Internal Medicine; Orthopaedic Surgery; ADMIT Internal Medicine
PROC: 30233N1 Transfusion of Nonautologous Red Blood Cells into Peripheral Vein, Percutaneous Approach (ICD-10-PCS; principal; 2019-07-01)
PROC: 0QS704Z Reposition Left Upper Femur with Internal Fixation Device, Open Approach (ICD-10-PCS; principal; 2019-07-01)
DX: S72.112A Displaced fracture of greater trochanter of left femur, initial encounter for closed fracture (principal); G92 Toxic encephalopathy; E44.0 Moderate protein-calorie malnutrition; Z68.42 Body mass index [BMI] 45.0-49.9, adult; I82.412 Acute embolism and thrombosis of left femoral vein; I48.21 Permanent atrial fibrillation; M97.02XA Periprosthetic fracture around internal prosthetic left hip joint, initial encounter; E66.01 Morbid (severe) obesity due to excess calories; Z96.642 Presence of left artificial hip joint; G89.29 Other chronic pain; Z66 Do not resuscitate; Z51.5 Encounter for palliative care; M54.5 Low back pain; I25.10 Atherosclerotic heart disease of native coronary artery without angina pectoris; E78.2 Mixed hyperlipidemia; K21.0 Gastro-esophageal reflux disease with esophagitis; D50.9 Iron deficiency anemia, unspecified; E11.43 Type 2 diabetes mellitus with diabetic autonomic (poly)neuropathy; K31.84 Gastroparesis; I10 Essential (primary) hypertension; E03.9 Hypothyroidism, unspecified; D72.829 Elevated white blood cell count, unspecified; R62.7 Adult failure to thrive; R29.6 Repeated falls; K59.09 Other constipation; W18.30XA Fall on same level, unspecified, initial encounter; Y93.89 Activity, other specified; Y92.89 Other specified places as the place of occurrence of the external cause; Z71.3 Dietary counseling and surveillance; Z87.01 Personal history of pneumonia (recurrent); Z90.710 Acquired absence of both cervix and uterus; Z83.3 Family history of diabetes mellitus; Z88.1 Allergy status to other antibiotic agents; Z88.8 Allergy status to other drugs, medicaments and biological substances; Z82.49 Family history of ischemic heart disease and other diseases of the circulatory system; Z79.01 Long term (current) use of anticoagulants; Y99.8 Other external cause status

== ENCOUNTER 2019-07-18 22:02 | Inpatient (IN) | payer OTHER ==
[~2019-07-18] VITALS: Ht 154.9 cm; Wt 101.4 kg
[2019-07-18 22:02] VITALS: BP 109/44
[~2019-07-18 22:02] MED LIST changes: +DULCOLAX STOOL100 M1 PO; +ENOXAPARIN30 MG/0.2 SC; +HUMULIN 70/30 PE3 ML SQ; +REGLAN5 MG PO; +TENORMIN25 M1 PO; +VITAMIN D31000 UNIT PO
--- NOTE | 2019-07-18 22:10 | NUR ---
MD ALARCON MADE AWARE OF PT RECENT GLUCOSE LEVEL.
[2019-07-18 22:30] VITALS: BP 109/44
--- NOTE | 2019-07-18 22:32 | NUR ---
IV ESTABLISHED BY EMS IN RT HAND DISCONTINUED AND REMOVED INTACT.NEW IV ESTABLISHED IN LT HAND WITH 22GAUGE ANGIOCATH WITH GOOD BLOOD RETURN AND FLUSHED WELL.
--- NOTE | 2019-07-18 22:33 | NUR ---
AT BEDSIDE FOR RECTAL TEMP OF 95.4.PER TSERING HICKS PLACED ON PT.
[2019-07-18 22:57] LABS: BASO % 0.2 % (0.0-1.0); EOS % 0.2 % (1.0-4.0); HEMATOCRIT 28.4 % (37.0-47.0); HEMOGLOBIN 8.7 g/dl (12.0-16.0); LYMPH # 0.6 10*3/uL (1.3-4.4); LYMPH % 3.5 % (27.0-41.0); MEAN CELL VOLUME 91.9 fl (81.0-99.0); MEAN CORPUSCULAR HGB 28.2 pg (27.0-31.0); MEAN CORPUSCULAR HGB CONC 30.6 g/dl (33.0-37.0); MEAN PLATELET VOLUME 9.9 fl (9.6-12.3); MONO % 6.2 % (3.0-9.0); NEUT # 14.8 10*3/uL (2.3-7.9); PLATELET COUNT AUTOMATED 510 10*3/uL (130-400); RED BLOOD COUNT 3.09 10*6/uL (4.10-5.10); RED CELL DISTRI WIDTH 15.9 % (0-14.5); WHITE BLOOD COUNT 16.7 10*3/uL (4.8-10.8)
[2019-07-18] MEDS ORDERED: REGLAN5 MG PO (23:04)
[2019-07-18 23:06] LABS: INTERNATIONAL NORM RATIO 1.1 (2.0-3.5)
[2019-07-18] MEDS ORDERED: ELIQUIS5 M1 PO (23:06)
[2019-07-18] MEDS ORDERED: Ferrex 150150 MG PO (23:07)
[2019-07-18] MEDS ORDERED: MIRALAX17 GM PO (23:07)
[2019-07-18 23:12] LABS: ALBUMIN 2.2 gm/dl (3.1-4.5); ALKALINE PHOSPHATASE 150 U/L (45-117); BUN 20 mg/dl (7-24); CHLORIDE 101 mmol/L (98-107); SGOT/AST 30 IU/L (3-35); SGPT/ALT 18 U/L (12-78); SODIUM 136 mmol/L (136-145)
--- NOTE | 2019-07-18 23:51 | NUR ---
URINE STRAIGHT CATH COMPLETED.PT TOLERATED WELL.APPROX 1400CC DARK MIGUEL ÁNGEL URINE OBTAINED.
--- NOTE | 2019-07-18 23:52 | NUR ---
2 PHOTO'S TAKEN OF SURGICAL SITE ON LEFT HIP APPEARS TO HAVE PURULENT DRAINAGE.1 PHOTO OF RIGH HIP WOUND TAKEN UNSTAGEABLE REDDENED AREA.
[2019-07-19] VITALS (11 sets, daily range): BP systolic 98–126; BP diastolic 46–70
[2019-07-19 00:47] LABS: BILIRUBIN NEGATIVE (NEGATIVE); BLOOD TRACE-INTACT (NEGATIVE); CLARITY CLOUDY (CLEAR); COLOR YELLOW (YELLOW); GLUCOSE NEGATIVE (NEGATIVE); KETONE NEGATIVE (NEGATIVE); LEUKO ESTERASE 2+ (NEGATIVE); NITRITE NEGATIVE (NEGATIVE); PH 5.5 (5.0-9.0); UROBILINOGEN 0.2 E.U./dl (0.2-1.0)
[2019-07-19 00:54] LABS: BACTERIA 4+; RBC TNTC rbc/hpf (0-2); URIC ACID CRYSTALS 1+; WBC TNTC wbc/hpf (0-5)
--- NOTE | 2019-07-19 02:43 | NUR ---
AIMEE SINGH AT BEDSIDE FOR ASSESMMENT AND MEASURING OF PT WOUNDS.
--- NOTE | 2019-07-19 02:44 | NUR ---
PHOTO OF HEALING WOUND ON LEFT LATERAL KNEE TAKEN BY AIMEE SINGH.
--- NOTE | 2019-07-19 02:46 | NUR ---
PT HAS MULTIPLE AREAS OF SCAR TISSUE ON LEFT LOWER BACK.NO PHOTO TAKEN PER CRYSTAL ABLRIGHT.PT HAS BLANCHABLE AREA OF REDNESS NOTED TO SECOND TOE OF RIGHT FOOT,NO PHOTO TAKEN PER CRYSTAL FRANCISCO.
--- NOTE | 2019-07-19 03:29 | NUR ---
JOHAN REID [id number] Please refer to the physician's history and physical for past medical history, comorbid conditions, and allergies. Diagnosis: UTI POSTOPERATIVE WOUND INFECTION HYPOGLYCEMIA Bala Score: , WOUND DESCRIPTIONS: Wound Number: 1 Location of the wound: right hip Type of wound: stage 2 Thickness: Partial Size: 0.9cm x 0.4cm x <0.1cm Tunneling: none Undermining: none Sinus Tract: none Presence of Exudate: Amount: None Color: [place] Odor: None Periwound Skin Appearance: Normal Wound edges: intact serum filled blister Pain (associated with wound): none at time of assessment How does patient state this happened? pt unsure how and when this happened Wound Number: 2 Location of the wound: left hip Type of wound: surgical Size: 47.0cm x 1.0cm x 0.1cm Tunneling: none Undermining: none Sinus Tract: none Presence of Exudate: Serosanguineous Amount: Heavy Color: yellow, brown, red Odor: None Periwound Skin Appearance: erythema, edema Wound edges: approximated with 61 brian Pain (associated with wound): very tender at time of assessment nurse caring for patient to see if something can be ordered. How does patient state this happened? pt stated she had surgery last month Wound Number: 3 Location of the wound: lle outer aspect of knee Thickness: Partial Size: 0.5cm x 0.5cm x 0.1cm Tunneling: none Undermining: none Sinus Tract: none Presence of Exudate: none Amount: None Color: pink Odor: None Periwound Skin Appearance: Normal Wound edges: approximated Pain (associated with wound): none at time of assessment How does patient state this happened? pt unsure how this happened 3 intact scars noted to left lower back at time of assessment. Areas are pink and blanchable at time of assessment. No draiange noted at time of assessment. Patient does have a red blanchable area noted to right 2nd toe at time of assessment. No open areas noted at time of assessment. No drainage noted at time of assessment. Bilateral heels are mushy to touch. No open areas noted at time of assessment. Surface the patient is resting on: Er Stretcher SKIN PREVENTION RECOMMENDATION: 1. Pressure redistribution support surface as appropriate 2. Elevate heels 3. Remove boots/TEDS every shift and reapply 4. Head of bed 30 degrees as tolerated 5. Assess nutrition and hydration 6. Manage moisture 7. Avoid the use of containment devices while in bed 8. Use absorptive products on surfaces limit layers of linens on bed 9. Turn and reposition every 1-2 hours in bed and every 1 hour in chair as tolerated 10. Weight shifts every 15 minutes while up in chair 11. Offloading with pillows or device to keep heels elevated off bed 12. Monitor skin at least every shift 13. Inspect under medical devices twice a day WOUND TREATMENT RECOMMENDATIONS: Heel raiser pro boots to bilateral feet. Wheelchair cushion when oob. Consult Dr. Bishop since she performed surgery. Apply sureprep to right hip allow time to dry the cover with optifoam gentle daily and prn for soiling. Cleanse left hip with nss and apply dsd daily and prn for soiling. Partial thickness guidelines: Cleanse lle outer aspect of knee with nss and apply sureprep around the wound hydrogel to wound bed and cover with optifoam gentle daily and prn for soiling.
--- NOTE | 2019-07-19 03:52 | NUR ---
A 84, admitted to 4E, under the services of Dr. CINTIA FLORES,BRADEN Calvo with a diagnosis of UTI, POSTOP WOUND INFECTION, HYPOGLYCEMIA. Chief complaint is HYPOGLYCEMIA AND HYPOXIC EPISODE. Patient arrived via stretcher from ER. Monitor applied. Initial assessment completed. Vital signs taken and recorded. BRADEN AGUAYO MD notified of admission to the unit. Orders received. See assessment for past medical history, medications and allergies. Patient and/or family oriented to unit. Clothing/patient valuable form completed. LORE MASCORRO
--- NOTE | 2019-07-19 04:02 | NUR ---
MED REC COMPLETED WITH LIST FROM [facility]
--- NOTE | 2019-07-19 05:00 | NUR ---
DR CHAMBERLAIN NOTIFIED OF ADMISSION ON FLOOR. NEW ORDERS REC'D.
--- NOTE | 2019-07-19 06:18 | NUR ---
NORCO GIVEN FOR C/O PAIN TO LEFT HIP RATED 10/10
--- NOTE | 2019-07-19 07:29 | NUR ---
CONSULT CALLED TO 's ANSWERING SERVICE.
--- NOTE | 2019-07-19 07:40 | NUR ---
SUSIE NOTIFIED OF CONSULT NEW ORDERS REC'D
[2019-07-19 08:26] LABS: BASO % 0.4 % (0.0-1.0); EOS # 0.2 10*3/uL (0.0-0.4); EOS % 1.9 % (1.0-4.0); HEMATOCRIT 24.5 % (37.0-47.0); HEMOGLOBIN 7.5 g/dl (12.0-16.0); LYMPH # 0.8 10*3/uL (1.3-4.4); LYMPH % 10.3 % (27.0-41.0); MEAN CELL VOLUME 91.1 fl (81.0-99.0); MEAN CORPUSCULAR HGB 27.9 pg (27.0-31.0); MEAN CORPUSCULAR HGB CONC 30.6 g/dl (33.0-37.0); MEAN PLATELET VOLUME 9.9 fl (9.6-12.3); MONO # 0.7 10*3/uL (0.1-1.0); MONO % 8.4 % (3.0-9.0); NEUT # 6.3 10*3/uL (2.3-7.9); NEUT % 78.1 % (47.0-73.0); PLATELET COUNT AUTOMATED 386 10*3/uL (130-400); RED BLOOD COUNT 2.69 10*6/uL (4.10-5.10); RED CELL DISTRI WIDTH 15.9 % (0-14.5); WHITE BLOOD COUNT 8.1 10*3/uL (4.8-10.8)
--- NOTE | 2019-07-19 08:41 | NUR ---
PHYSICAL THERAPY Screen received as well as orders for PT will follow, thank you Marcelle Broderick PT
--- NOTE | 2019-07-19 09:00 | NUR ---
Litigation Legal Secretary in to see patient. No new needs or request at this time. She is currently short term at [facility] and plans to return there upon discharge for continued therapy. Wound and blood cultures are pending. shoe planner following.
--- NOTE | 2019-07-19 09:01 | NUR ---
18FR HANEY CATH INSERTED. TOLERATED WELL. 500CC OUT FOR MIGUEL ÁNGEL/CLOUDY URINE.
--- NOTE | 2019-07-19 10:19 | NUR ---
PER , IT IS OK TO GIVE ELIQUIS TODAY.
--- NOTE | 2019-07-19 11:16 | NUR ---
Occupational Therapy referral received. OT awaiting orthopedic consult d/t post op wound infection. Noemí Ramos OTR/l
--- NOTE | 2019-07-19 11:30 | NUR ---
PHYSICAL THERAPY Chart reviewed pt just admitted this AM to be seen by Dr. Bishop for L hip infectionm, will await assessment by orthopeadic MD prior to being seen Marcelle Broderick PT
--- NOTE | 2019-07-19 15:32 | NUR ---
CONSULT CALLED TO 'S OFFICE. AWAITING CALL BACK.
--- NOTE | 2019-07-19 16:56 | NUR ---
WITH 'S SERVICE IN TO SEE PT. WOUND CULTURE OBTAINED. 3 MABLE AT WOUND SITE REMOVED BY . 15 MABLE IN TOTAL CURRENTLY AT SITE TO LEFT HIP.
[2019-07-19 17:32] LABS: ALBUMIN 2.1 gm/dl (3.1-4.5); ALKALINE PHOSPHATASE 141 U/L (45-117); BUN 15 mg/dl (7-24); CHLORIDE 99 mmol/L (98-107); CREATININE 0.82 mg/dL (0.55-1.02); POTASSIUM 3.4 mmol/L (3.5-5.1); SGOT/AST 26 IU/L (3-35); SGPT/ALT 14 U/L (12-78); SODIUM 134 mmol/L (136-145); TOTAL PROTEIN 5.8 gm/dL (6.4-8.2)
--- NOTE | 2019-07-19 21:15 | NUR ---
PT COMPLAINING OF LEFT HIP PAIN RATED 8/10. PT HAS ALREADY RECEIVED HER ALLOTED DOSES OF NORCO FOR THE DAY. NO NEW ORDERS RECEIVED. WILL MONITOR PATIENT.
[2019-07-20] VITALS: BP 120/58
--- NOTE | 2019-07-20 00:23 | NUR ---
PATIENT REQUESTING PAIN MEDICATION FOR LEFT HIP PAIN RATED 8/10 ON 0/10 SCALE. NORCO ADMINISTERED PRESCRIBED. WILL MONITOR FOR EFFECTIVENESS.
--- NOTE | 2019-07-20 01:23 | NUR ---
PATIENT RESTING WITH EYES CLOSED. RESPIRATIONS EASY AND UNLABORED. BED ALARM ON AND CALL WARD WITHIN REACH. WILL MONITOR.
--- NOTE | 2019-07-20 02:19 | NUR ---
PATIENT RESTING WITH EYES CLOSED. RESPIRATIONS EASY AND UNLABORED. BED ALARM ON AND CALL LIGHT WITHIN REACH. WILL MONITOR.
--- NOTE | 2019-07-20 06:09 | NUR ---
PATIENT REQUESTING PAIN MEDICATION FOR LEFT HIP PAIN RATED 8/10 ON 0/10 SCALE. NORCO ADMINISTERED PRESCRIBED. WILL MONITOR FOR EFFECTIVENESS.
[2019-07-20 07:19] LABS: BASO # 0.1 10*3/uL (0.0-0.1); EOS # 0.3 10*3/uL (0.0-0.4); EOS % 4.8 % (1.0-4.0); HEMATOCRIT 26.9 % (37.0-47.0); HEMOGLOBIN 8.2 g/dl (12.0-16.0); LYMPH # 1.4 10*3/uL (1.3-4.4); LYMPH % 19.4 % (27.0-41.0); MEAN CELL VOLUME 90.9 fl (81.0-99.0); MEAN CORPUSCULAR HGB 27.7 pg (27.0-31.0); MEAN CORPUSCULAR HGB CONC 30.5 g/dl (33.0-37.0); MEAN PLATELET VOLUME 9.9 fl (9.6-12.3); MONO # 0.8 10*3/uL (0.1-1.0); MONO % 11.7 % (3.0-9.0); NEUT # 4.3 10*3/uL (2.3-7.9); PLATELET COUNT AUTOMATED 443 10*3/uL (130-400); RED BLOOD COUNT 2.96 10*6/uL (4.10-5.10); RED CELL DISTRI WIDTH 15.7 % (0-14.5)
--- NOTE | 2019-07-20 07:32 | NUR ---
Updated clinicals faxed to [facility] for review, waiting on H & P; PT and OT evals. Patient requires precert to return.
[2019-07-20 08:00] VITALS: BP 122/72
--- NOTE | 2019-07-20 08:01 | NUR ---
Nursing screen and Occupational Therapy referral received. Thank you. Noemí Ramos OTR/L
--- NOTE | 2019-07-20 08:46 | NUR ---
Occupational Therapy evaluation offered this date. Patient eating breakfast and declined reporting 10/10 pain and that she only gets pain medication each 6 hr.OTR will recheck at a later time. Abdi Ramos OTR/l
--- NOTE | 2019-07-20 08:53 | NUR ---
PHYSICAL THERAPY Attempted to evaluate pt at bedside presently eating but also refusing therapy at this time due to pain will follow later in the day to reattempt stevie Broderick PT
--- NOTE | 2019-07-20 12:13 | NUR ---
NORCO GIVEN FOR C/O LT HIP PAIN. 8/10 ON PAIN SCALE. WILL MONITOR.
--- NOTE | 2019-07-20 12:30 | NUR ---
PHYSICAL THERAPY Spoke with Dr. Brito who is seeing patients for today. Pt to be seen by ID today to determine next step regarding L hip, per MD to defer therapy unitil after seen by ID, pt may possibly be transfered to another facility. Will follow Marcelle Broderick PT
--- NOTE | 2019-07-20 13:15 | NUR ---
NETO EFFECTIVE PER PT.
[2019-07-20 16:00] VITALS: BP 128/60
[2019-07-20 20:00] VITALS: BP 131/54
--- NOTE | 2019-07-20 22:00 | NUR ---
DISCHARGE PICTURES TAKEN AND DRESSINGS CHANGED PER ORDER.
--- NOTE | 2019-07-20 22:05 | NUR ---
ORDER RECEIVED FROM DR CHAMBERLAIN FOR IV DILAUDID TO BE GIVEN PRIOR TO TRANSPORT TO [facility].
--- NOTE | 2019-07-20 23:46 | NUR ---
PATIENT MEDICATED WITH 1MG IV DILAUDID FOR LEFT HIP PAIN RATED 9/10 ON 0/10 SCALE. WILL MONITOR FOR EFFECTIVENESS.
[2019-07-21] VITALS: BP 136/66
--- NOTE | 2019-07-21 00:36 | NUR ---
24 HR chart check completed.
--- NOTE | 2019-07-21 01:20 | NUR ---
Discharge instructions reviewed with patient/family. Patient receptive and verbalizes understanding. Follow-up care arranged. Written instructions given to patient/family. TRANSFERED TO [facility] WITH ASI. IRMA MONTOYA
--- NOTE | 2019-07-21 01:30 | NUR ---
REPORT CALLED TO NURSE ON 3 MAIN AT [facility].
== END 2019-07-21 01:30 | disposition short-term general hospital (02) | DRG 863 ==
LOC: ED 22:02 → 4E 07-19 02:09 → EDHOLD 07-19 02:09 → 4E 07-19 03:15
PROVIDERS: Emergency Medicine; Family Medicine; Orthopaedic Surgery; ADMIT Internal Medicine
DX: T81.49XA Infection following a procedure, other surgical site, initial encounter (principal); N39.0 Urinary tract infection, site not specified; I82.512 Chronic embolism and thrombosis of left femoral vein; I48.20 Chronic atrial fibrillation, unspecified; Z68.42 Body mass index [BMI] 45.0-49.9, adult; I10 Essential (primary) hypertension; E03.9 Hypothyroidism, unspecified; M16.12 Unilateral primary osteoarthritis, left hip; E11.649 Type 2 diabetes mellitus with hypoglycemia without coma; E66.01 Morbid (severe) obesity due to excess calories; K59.09 Other constipation; Z96.649 Presence of unspecified artificial hip joint; I25.10 Atherosclerotic heart disease of native coronary artery without angina pectoris; E78.2 Mixed hyperlipidemia; G89.29 Other chronic pain; M54.5 Low back pain; M47.896 Other spondylosis, lumbar region; E11.69 Type 2 diabetes mellitus with other specified complication; Z88.6 Allergy status to analgesic agent; Z88.1 Allergy status to other antibiotic agents; Z88.8 Allergy status to other drugs, medicaments and biological substances; Z83.3 Family history of diabetes mellitus; Z82.49 Family history of ischemic heart disease and other diseases of the circulatory system; Z79.899 Other long term (current) drug therapy; M97.02XD Periprosthetic fracture around internal prosthetic left hip joint, subsequent encounter; Z79.4 Long term (current) use of insulin; S72.002S Fracture of unspecified part of neck of left femur, sequela; Z79.01 Long term (current) use of anticoagulants; Y83.8 Other surgical procedures as the cause of abnormal reaction of the patient, or of later complication, without mention of misadventure at the time of the procedure; Y92.89 Other specified places as the place of occurrence of the external cause